=== PATIENT | female | born 1965 | race Caucasian/White ===

== ENCOUNTER 2017-03-26 10:29 | Emergency (ER) | payer OTHER, SELFPAY ==
[2017-03-26 10:33] VITALS: BP 150/66; PULSE 70; RESP 18; TEMP 36.9; O2SAT 100; BMI 27.4
--- NOTE | 2017-03-26 10:42 | XR_ITS ---
XR chest 2V HISTORY: ITS.REASON: chest discomfort ORDERING PHYSICIAN: Kaia Ivey MD PATIENT AGE: 51 years COMPARISON: None available FINDINGS: The cardiomediastinal silhouette and pulmonary vascularity are within normal limits. The lungs are clear without infiltrates, suspicious nodules, or pleural effusions. No acute bony abnormalities. IMPRESSION: No change with no acute finding
[2017-03-26 11:01] LABS: Basophils % 0.5 % (0.1-2.0); Eosinophils # 0.3 K/mm3 (0.0-0.4); Eosinophils % 3.2 % (0.1-12.0); Hemoglobin 14.7 g/dL (12.2-16.2); Lymphocytes # 2.4 K/mm3 (0.7-4.5); Lymphocytes % 27.2 K/mm3 (10-50); Mean Corpuscular HGB Conc 32.7 g/dL (31.8-35.4); Mean Corpuscular Hemoglobin 29.3 pg (27.0-31.2); Mean Corpuscular Volume 89.7 fl (81-99); Mean Platelet Volume 8.7 fl (7.4-10.4); Monocytes # 0.6 K/mm3 (0.1-1.0); Monocytes % 6.8 % (1.7-9.3); Neutrophils # 5.5 K/mm3 (1.8-7.8); Neutrophils % 62.4 % (37.0-80.0); Platelet Count 290 K/mm3 (142-424); Red Blood Count 5.02 M/mm3 (4.20-5.40); Red Cell Distribution Width 12.9 % (11.5-17.5); White Blood Count 8.7 K/mm3 (4.8-10.8)
--- NOTE | 2017-03-26 11:11 | HMH.EDCP ---
ED Disposition Clinical Impression: Atypical chest pain Disposition: Home, Self-Care Condition on Discharge: Good Instructions: DI for Atypical Chest Pain Additional Instructions: Call Dr. Schultz's office for follow up appointment March 27, 2017. Continue all current medications. Referrals: Tobias Schultz MD [Primary Care Provider] - - Critical Care Critical Care Time: No Attestation: On 03/26/17, the high probability of a clinically significant, sudden or life threatening deterioration of the following system(s) required my full and direct attention, intervention and personal management. The time I documented below is in addition to time spent performing reported procedures but includes the following listed in this critical care notation. Medical Decision Making Vital Signs: 03/26/17 10:33 03/26/17 12:46 Temperature 98.4 F Temperature Source Oral Pulse Rate [Brachial] 70 63 Respiratory Rate 18 18 Blood Pressure [Right Arm] 150/66 134/90 Blood Pressure Mean [Right Arm] 94 104 Blood Pressure Source [Right Arm] Automatic Cuff Automatic Cuff Blood Pressure Position [Right Arm] Sitting Supine 02 Sat by Pulse Oximetry 100 99 Oxygen Delivery Method Room Air Room Air - Lab Data Lab Results 03/26/17 10:45: WBC 8.7, RBC 5.02, Hgb 14.7, Hct 45.0, MCV 89.7, MCH 29.3, MCHC 32.7, RDW 12.9, Plt Count 290, MPV 8.7, Neut % (Auto) 62.4, Lymph % (Auto) 27.2, [place] % (Auto) 6.8, Eos % (Auto) 3.2, Baso % (Auto) 0.5, Neut # (Auto) 5.5, Lymph # (Auto) 2.4, [place] # (Auto) 0.6, Eos # (Auto) 0.3, Baso # (Auto) 0.0 03/26/17 10:45: D-Dimer < 100 03/26/17 10:45: Sodium 137, Potassium 3.7, Chloride 101, Carbon Dioxide 28, Anion Gap 11.7, BUN 16, Creatinine 1.16 H, Estimated Creat Clear 64, Estimated GFR 49 L, Est GFR ( Amer) 59, Glucose 119 H, Calcium 9.1, Total Bilirubin 0.6, AST 18, ALT 34, Alkaline Phosphatase 99, Total Creatine Kinase 63, CK-MB (CK-2) < 0.5, CK-MB (CK-2) Rel Index 0.8, Troponin I < 0.02, Total Protein 7.4, Albumin 4.0, Globulin 3.4 H, Albumin/Globulin Ratio 1.2 Result diagrams: 03/26/17 10:45 03/26/17 10:45 Orders (Tests/Meds): ED MEDICATIONS Generic Name Dose Route Start Last Admin Trade Name Freq PRN Reason Stop Dose Admin Sodium Chloride 10 ml 03/26/17 10:44 Saline Flush 10ml Syringe IV 04/25/17 10:43 NEEDED PRN Maintain IV Site - Radiology Data #1 Image(s): Chest Image Reviewed: Yes I reviewed the patient's radiology results, Yes I have reviewed radiologist's interpretation Preliminary Findings: Normal/NAD, No Infiltrates Seen - CT Data CT Scan: Head Time Received: 13:[address] Reviewed: Yes: I have reviewed the patient's CT results, I have viewed the radiologist's interpretation Preliminary Findings: Normal/NAD - ECG Data Tracing #1 ECG initial impression date: 03/26/17 ECG initial impression time: 10:40 - Physician Consults Physician Consulted: Dr. Schultz Time: 13:02 Reason -: Pt condition Comment/Response: ok to f/u in his clinic tomorrow; call for appt; this info relayed to patient and she is comfortable with this option. - Ghanshyam Inquiry Pt receiving controlled substance: No Chest Pain HPI - General Chief Complaint: Chest Pain Stated Complaint: SOA Time Seen by Provider: 03/26/17 11:15 Mode of Arrival: Ambulatory Source of Information: Patient Limitations: No Limitations Description of Symptoms (Recalled from ER Triage Doc. by RN): COUGH,SOA - History of Present Illness HPI narrative: In presents to the emergency department with chest heaviness, radiating to the left upper extremity since 2300 on March 25, 2017. Set her left arm feels numb . She denies any neck pain. She had a little bit of shortness of breath but no fever or cough. No dyspnea on exertion. No calf pain. The pain is not positional. He has no nausea vomiting diaphoresis. No syncope. She states that she has had a history of TIA in the past whi
[2017-03-26 11:22] LABS: Alanine Aminotransferase 34 U/L (12-78); Albumin/Globulin Ratio 1.2 (1.1-1.8); Alkaline Phosphatase 99 U/L (46-116); Anion Gap 11.7 mEq/L (5-15); Aspartate Amino Transferase 18 U/L (15-37); Bilirubin,Total 0.6 mg/dL (0.2-1.0); Blood Urea Nitrogen 16 mg/dL (7-18); Calcium 9.1 mg/dL (8.5-10.1); Carbon Dioxide 28 mmol/L (21.0-32.0); Chloride 101 mmol/L (98-107); Creatine Kinase 63 U/L (26-140); Creatinine Clearance Estimated 64 mg/ml (0-300); Creatinine,Serum 1.16 mg/dL (0.55-1.02); Estimated Glomerular Filt Rate 49 ml/min (>60); GFR (African American) 59 ML/MIN (>60); Globulin 3.4 gm/dl (1.3-3.2); Glucose 119 mg/dL (74-106); Potassium 3.7 mmoL/L (3.5-5.1); Sodium 137 mmol/L (136-145); Total Protein,Serum 7.4 gm/dL (6.4-8.2); Troponin I < 0.02 ng/ml (0.00-0.06)
[2017-03-26 11:29] LABS: CKMB Relative Index 0.8 U/L (0-4.0); Creatine Kinase MB < 0.5 mg/ml (0.0-3.6)
--- NOTE | 2017-03-26 11:29 | ED_ITS ---
ED Disposition Clinical Impression: Atypical chest pain Disposition: Home, Self-Care Condition on Discharge: Good Instructions: DI for Atypical Chest Pain Additional Instructions: Call Dr. Schultz's office for follow up appointment March 27, 2017. Continue all current medications. Referrals: Tobias Schultz MD [Primary Care Provider] - - Critical Care Critical Care Time: No Attestation: On 03/26/17, the high probability of a clinically significant, sudden or life threatening deterioration of the following system(s) required my full and direct attention, intervention and personal management. The time I documented below is in addition to time spent performing reported procedures but includes the following listed in this critical care notation. Medical Decision Making Vital Signs: 03/26/17 10:33 03/26/17 12:46 Temperature 98.4 F Temperature Source Oral Pulse Rate [Brachial] 70 63 Respiratory Rate 18 18 Blood Pressure [Right Arm] 150/66 134/90 Blood Pressure Mean [Right Arm] 94 104 Blood Pressure Source [Right Arm] Automatic Cuff Automatic Cuff Blood Pressure Position [Right Arm] Sitting Supine 02 Sat by Pulse Oximetry 100 99 Oxygen Delivery Method Room Air Room Air - Lab Data Lab Results 03/26/17 10:45: WBC 8.7, RBC 5.02, Hgb 14.7, Hct 45.0, MCV 89.7, MCH 29.3, MCHC 32.7, RDW 12.9, Plt Count 290, MPV 8.7, Neut % (Auto) 62.4, Lymph % (Auto) 27.2 , [place] % (Auto) 6.8, Eos % (Auto) 3.2, Baso % (Auto) 0.5, Neut # (Auto) 5.5, Lymph # (Auto) 2.4, [place] # (Auto) 0.6, Eos # (Auto) 0.3, Baso # (Auto) 0.0 03/26/17 10:45: D-Dimer < 100 03/26/17 10:45: Sodium 137, Potassium 3.7, Chloride 101, Carbon Dioxide 28, Anion Gap 11.7, BUN 16, Creatinine 1.16 H, Estimated Creat Clear 64, Estimated GFR 49 L, Est GFR ( Amer) 59, Glucose 119 H, Calcium 9.1, Total Bilirubin 0.6, AST 18, ALT 34, Alkaline Phosphatase 99, Total Creatine Kinase 63 , CK-MB (CK-2) < 0.5, CK-MB (CK-2) Rel Index 0.8, Troponin I < 0.02, Total Protein 7.4, Albumin 4.0, Globulin 3.4 H, Albumin/Globulin Ratio 1.2 Result diagrams: 03/26/17 10:45 03/26/17 10:45 Orders (Tests/Meds): ED MEDICATIONS Generic Name Dose Route Start Last Admin Trade Name Freq PRN Reason Stop Dose Admin Sodium Chloride 10 ml 03/26/17 10:44 Saline Flush 10ml Syringe IV 04/25/17 10:43 NEEDED PRN Maintain IV Site - Radiology Data #1 Image(s): Chest Image Reviewed: Yes I reviewed the patient's radiology results, Yes I have reviewed radiologist's interpretation Preliminary Findings: Normal/NAD, No Infiltrates Seen - CT Data CT Scan: Head Time Received: 13:[address] Reviewed: Yes: I have reviewed the patient's CT results, I have viewed the radiologist's interpretation Preliminary Findings: Normal/NAD - ECG Data Tracing #1 ECG initial impression date: 03/26/17 ECG initial impression time: 10:40 - Physician Consults Physician Consulted: Dr. Schultz Time: 13:02 Reason -: Pt condition Comment/Response: ok to f/u in his clinic tomorrow; call for appt; this info relayed to patient and she is comfortable with this option. - Ghanshyam Inquiry Pt receiving controlled substance: No Chest Pain HPI - General Chief Complaint: Chest Pain Stated Complaint: SOA Time Seen by Provider: 03/26/17 11:15 Mode of Arrival: Ambulatory Source of Information: Cesilia Luu
[2017-03-26 11:30] LABS: D-Dimer < 100 (0-400)
--- NOTE | 2017-03-26 11:38 | CT_ITS ---
CT head/brain wo con HISTORY: ITS.REASON: LEFT ARM NUMBNESS, HX OF TIA ORDERING PHYSICIAN: Kaia Ivey MD PATIENT AGE: 51 years COMPARISON: 03/27/2015 TECHNIQUE: Axial images obtained without contrast. Brain and bone windows reviewed. FINDINGS: No midline shift, mass effect, intracranial hemorrhage, hydrocephalus, or extra-axial fluid collection is evident. Nonspecific slight decreased attenuation in the periventricular and subcortical region suggesting mild ischemic gliotic change. The calvarium has an unremarkable appearance. No mastoid effusion. No sinus air-fluid levels.. IMPRESSION: No change with no acute finding. There is no evidence of intracranial hemorrhage, focal mass, or acute territorial infarction. A negative CT does not exclude an acute CVA. A follow-up head CT or MRI is recommended if neurological symptoms persist
[2017-03-26 12:46] VITALS: BP 134/90; PULSE 63; RESP 18; O2SAT 99
[2017-03-26 13:40] VITALS: BP 133/80; PULSE 82; RESP 18; TEMP 36.6; O2SAT 99
== END 2017-03-26 13:40 | disposition home or self-care (01) ==
PROVIDERS: Emergency Provider Emergency Medicine; Family Provider Family Medicine; PCP Family Medicine
DX: R07.89 Other chest pain (principal); Z88.2 Allergy status to sulfonamides
CPT/HCPCS: 70450; 71046; 80053; 82550; 82553; 84484; 85025; 85378; 93005; 93041; 99284

== ENCOUNTER → 2017-04-02 08:52 | Outpatient (CLI) | payer OTHER, SELFPAY ==
--- NOTE | 2017-04-02 08:58 | MR_ITS ---
MR head/brain wo/w con HISTORY: Left arm numbness, TIA ITS.REASON: PARESTHESIA OF LT ARM, H/O STROKE WITHIN LAST YEAR, ALEXA RIVERA ORDERING PHYSICIAN: Tobias Schultz MD PATIENT AGE: 51 years COMPARISON: 05/27/2016 TECHNIQUE: Standard multiplanar multiecho sequences are performed without and with gadolinium enhancement contrast. FINDINGS: There is no evidence of acute infarction. There are scattered periventricular and subcortical T2 white matter hyperintensities no significant change compared to the previous exam. No midline shift, mass effect, intracranial hemorrhage, or hydrocephalus. No enhancing lesions. The cerebellopontine angles, cerebellum, and brainstem are unremarkable. Small area of encephalomalacia once again noted involving the left aspect of the cerebellar hemisphere unchanged. No sinus air-fluid level or mastoid effusion. IMPRESSION: 1. No acute intracranial findings with no significant change from the previous exam. 2. Scattered periventricular and subcortical T2 white matter hyperintensities. These do not show restricted diffusion and do not enhance and are similar when compared to the previous exam probably related to ischemic gliotic change from microvascular disease. Differential diagnosis includes migraine headache and demyelinating process.
--- NOTE | 2017-04-02 10:29 | HMH.ITSHM ---
LEVOTHYROXINE 75MCG ATORVASTATIN 10MG LANSOPRAZOLE 30MG BIOTIN VITAMIN D3 MECLIZINE 25MG [place] HORMONE PATCH
== END ==
PROVIDERS: Family Provider Family Medicine; PCP Family Medicine; Visit Provider Family Medicine
DX: R20.2 Paresthesia of skin (principal); R93.0 Abnormal findings on diagnostic imaging of skull and head, not elsewhere classified; Z86.73 Personal history of transient ischemic attack (TIA), and cerebral infarction without residual deficits
CPT/HCPCS: 70553; A9576

== ENCOUNTER → 2017-07-27 12:53 | Outpatient (CLI) | payer OTHER, SELFPAY | PROVIDERS: PCP Family Medicine; Visit Provider Nurse Practitioner Family | DX: Z87.898 Personal history of other specified conditions (principal); Z86.73 Personal history of transient ischemic attack (TIA), and cerebral infarction without residual deficits; R20.0 Anesthesia of skin; R20.2 Paresthesia of skin | CPT/HCPCS: 93225; 93226 ==

== ENCOUNTER → 2017-08-03 09:47 | Outpatient (CLI) | payer OTHER, SELFPAY ==
--- NOTE | 2017-08-03 09:51 | CT_ITS ---
CT angio head CLINICAL INDICATION: Transient ischemic accident ITS.REASON: history of tia ORDERING PHYSICIAN: Elda King PATIENT AGE: 52 years TECHNIQUE: Helical acquisition obtained following the bolus administration 100 mL of Isovue 370 performed in conjunction with the neck CT. Axial sagittal and coronal reformatted images are reviewed. FINDINGS: No intracranial stenosis, aneurysm, arteriovenous malformation, or enhancing mass is evident. The right carotid artery is uniformly smaller than the left side by approximately 40%. The lumen of the carotid however has an unremarkable appearance and may represent an anatomical variant. No beading or other luminal abnormalities. IMPRESSION: Unremarkable CT angiogram of the head. No stenotic lesions apparent. The right carotid both intra and extracranial is smaller than the left side by approximately 40% of questionable clinical significance
--- NOTE | 2017-08-03 09:51 | CT_ITS ---
CT angio neck CLINICAL INDICATION: Transient ischemic attacks ITS.REASON: history of tia ORDERING PHYSICIAN: Elda King PATIENT AGE: 52 years technique: Helical acquisition obtained following the bolus administration of 100 mL's of Isovue-370. Axial sagittal and coronal reformatted images are reviewed. FINDINGS: The arch vessels have an unremarkable appearance with no significant stenosis. Left vertebral artery is dominant arising from the left subclavian artery. The right carotid is smaller in caliber than the left however, there is no significant stenotic lesion evident. The internal carotid on the right has an unremarkable appearance. There is mild prominence of the carotid bulb on the left nonspecific. No saccular or focal aneurysms are evident. No stenotic lesions apparent. The study also included the intracranial circulations showing no evidence of carotid stenosis or aneurysm. No enhancing intracranial lesions are evident. No evidence of arteriovenous malformation Nonvascular findings: Scattered small nodes are present in the neck nonspecific. IMPRESSION: Negative CT angiogram of the neck. No stenotic lesions evident.
--- NOTE | 2017-08-03 10:37 | CA_ITS ---
PROCEDURE: 2-D M-mode and color Doppler study INDICATIONS FOR THE TEST: Chest pain + COPD Heart Murmur Tobacco Smoking Palpitations Fatigue Syncope Edema Hypertension Diabetes Mellitus Rheumatic Fever SOB VILLALBA Obesity Hyperlipidemia Family History HD Additional History TIA PATIENT INFORMATION HEIGHT:64 WEIGHT:172 GENDER: Female B/P:111/87 2-D/M-MODE INTERPRETATION: 2-D MEASUREMENTS OBSERVED VALUES IN CMS Right Ventricular Dimension (RVDd) 1.8 Interventricular Septum (Thickness)(IVsd) 1.1 Left Ventricular Internal Dimensions(LVIDd) 3.7 Left Ventricular Posterior Wall (Thickness)(LVPWd) 1.0 Aortic Root 2.8 Aortic Cusp Separation 1.7 Left Atrial Dimensions (LAD) 3.6 2D 1. Left atrium is normal size, left ventricle is normal size, there is no concentric left ventricular hypertrophy, visually estimated ejection fraction 55% with no obvious regional wall motion abnormality. 2. The right atrium and right ventricle are normal size and contractility. 3. The aortic, mitral and tricuspid valve are grossly normal. 4. The pulmonic valve is poorly visualized. 5. No significant pericardial effusion noted. DOPPLER INTERROGATION: Doppler interrogation of the aortic, mitral and tricuspid valvular presence of mild mitral and tricuspid regurgitation, tricuspid and jet velocity insufficient for calculation of the right ventricular systolic pressure, diastolic parameters are within normal range. CONCLUSION: 1. Normal left ventricular size, preserved left ventricular systolic function, visually estimated ejection fraction 55% with no obvious regional wall motion abnormality, diastolic parameters are within normal range. 2. Mild mitral and tricuspid regurgitation 3. No significant pericardial effusion noted.
== END ==
PROVIDERS: Family Provider Family Medicine; PCP Family Medicine; Visit Provider Nurse Practitioner Family
DX: Z86.73 Personal history of transient ischemic attack (TIA), and cerebral infarction without residual deficits (principal); Z87.898 Personal history of other specified conditions; R20.0 Anesthesia of skin; R20.2 Paresthesia of skin; R06.83 Snoring
CPT/HCPCS: 70496; 70498; 93306; Q9967

== ENCOUNTER → 2017-08-31 07:59 | Outpatient (POV) | payer OTHER, SELFPAY | PROVIDERS: Family Provider Family Medicine; PCP Family Medicine; Visit Provider Specialist | DX: R20.0 Anesthesia of skin (principal); R20.2 Paresthesia of skin; Z86.73 Personal history of transient ischemic attack (TIA), and cerebral infarction without residual deficits | CPT/HCPCS: 95886; 95910 ==

== ENCOUNTER → 2017-09-01 07:57 | Outpatient (CLI) | payer OTHER, SELFPAY | PROVIDERS: Family Provider Family Medicine; PCP Family Medicine; Visit Provider Internal Medicine | DX: R07.89 Other chest pain (principal); R06.09 Other forms of dyspnea; R55 Syncope and collapse; Z86.73 Personal history of transient ischemic attack (TIA), and cerebral infarction without residual deficits; Z82.49 Family history of ischemic heart disease and other diseases of the circulatory system | CPT/HCPCS: 93017 ==

== ENCOUNTER → 2018-12-27 08:45 | Outpatient (CLI) | payer OTHER, SELFPAY ==
--- NOTE | 2018-12-27 08:47 | FL_ITS ---
PROCEDURE: FL BARIUM SWALLOW CLINICAL INDICATION: dysphagia COMPARISON: No exams were available for comparison TECHNIQUE: In the upright position the patient was observed to swallow barium in both the AP and lateral view. The cervical esophagus was examined under fluoroscopy with images obtained. The patient was then placed prone in the right anterior oblique position and was observed to swallow barium with Valsalva technique . FLUOROSCOPY TIME: 44 seconds FINDINGS: There was no evidence of aspiration. There was normal peristalsis. No filling defects or mucosal abnormalities. No masses or strictures. No hiatal hernia. There are some small cervical osteophytes causing some minimal indentation upon the posterior aspect of the esophagus at the C5-C6 level. IMPRESSION: No acute finding. Cervical spondylosis with osteophytes causing some mild indentation upon the posterior aspect of the cervical esophagus Dictated by: Ace Castillo MD 12/27/2018 10:05 Electronically signed by Ace Castillo MD in [facility] 12/27/2018 10:05
== END ==
PROVIDERS: PCP Family Medicine; Visit Provider Otolaryngology
DX: R13.10 Dysphagia, unspecified (principal)
CPT/HCPCS: 74220

== ENCOUNTER → 2019-01-03 16:38 | Outpatient (CLI) | payer OTHER, SELFPAY ==
[2019-01-03 18:40] LABS: Free T4 (Free Thyroxine) 1.07 ng/dl (0.76-1.46); Thyroid Stimulating Hormone 1.89 uIU/ml (0.358-3.740)
== END ==
PROVIDERS: Visit Provider Otolaryngology
DX: R13.10 Dysphagia, unspecified (principal)
CPT/HCPCS: 36415; 84439; 84443

== ENCOUNTER → 2019-01-07 07:47 | Outpatient (CLI) | payer OTHER, SELFPAY ==
--- NOTE | 2019-01-07 07:49 | US_ITS ---
PROCEDURE: US THYROID CLINICAL INDICATION: thyroid nodule Difficulty swallowing COMPARISON: THY US THYROID from 12/30/[address] angio head from 08/03/2017 FINDINGS: The thyroid gland is atrophic with the right lobe measuring 1.3 x 0.5 x 0.5 cm and the left lobe 1.4 x 0.5 x 0.5 cm with heterogeneous echogenicity. No discrete thyroid nodule is evident. Superior to the left lobe of the thyroid gland there is a hypoechoic oval area of echogenicity which measures approximately 1.2 x 0.7 cm. This is of unknown etiology and may be better evaluated with CT of the neck with contrast. IMPRESSION: 1. Atrophic thyroid gland. No discrete thyroid nodule 2. 1.2 cm hypoechoic nodule superior to the left lobe of the thyroid gland which could be due to an enlarged lymph node. Consider CT of the neck with contrast for further evaluation Dictated by: Ace Castillo MD 01/07/2019 12:00 Electronically signed by Ace Castillo MD in [facility] 01/07/2019 12:00
== END ==
PROVIDERS: PCP Family Medicine; Visit Provider Otolaryngology
DX: R13.10 Dysphagia, unspecified (principal)
CPT/HCPCS: 76536

== ENCOUNTER → 2019-01-13 13:17 | Outpatient (CLI) | payer OTHER, SELFPAY ==
[2019-01-13 14:10] LABS: Basophils # 0.1 K/mm3 (0-0.2); Basophils % 0.6 % (0.1-2.0); Eosinophils # 0.2 K/mm3 (0.0-0.4); Hematocrit 44.6 % (37.0-47.0); Hemoglobin 14.4 g/dL (12.2-16.2); Lymphocytes # 2.6 K/mm3 (0.7-4.5); Lymphocytes % 29.5 % (10-50); Mean Corpuscular HGB Conc 32.4 g/dL (31.8-35.4); Mean Corpuscular Hemoglobin 30.7 pg (27.0-31.2); Mean Corpuscular Volume 94.8 fl (81-99); Mean Platelet Volume 8.9 fl (7.4-10.4); Monocytes # 0.6 K/mm3 (0.1-1.0); Monocytes % 6.6 % (1.7-9.3); Neutrophils # 5.5 K/mm3 (1.8-7.8); Neutrophils % 61.3 % (37.0-80.0); Platelet Count 297 K/mm3 (142-424); Red Blood Count 4.71 M/mm3 (4.20-5.40); Red Cell Distribution Width 12.8 % (11.5-17.5); White Blood Count 8.9 K/mm3 (4.8-10.8)
[2019-01-13 15:38] LABS: Alanine Aminotransferase 23 U/L (12-78); Albumin Level 4.1 gm/dL (3.4-5.0); Albumin/Globulin Ratio 1.3 (1.1-1.8); Alkaline Phosphatase 86 U/L (46-116); Anion Gap 11.5 mEq/L (5-15); Aspartate Amino Transferase 12 U/L (15-37); Bilirubin,Total 0.5 mg/dL (0.2-1.0); Blood Urea Nitrogen 14 mg/dL (7-18); Calcium 9.3 mg/dL (8.5-10.1); Carbon Dioxide 31 mmol/L (21.0-32.0); Chloride 103 mmol/L (98-107); Creatinine,Serum 0.94 mg/dL (0.55-1.02); Estimated Glomerular Filt Rate 62 ml/min (>60); GFR (African American) 75 ML/MIN (>60); Globulin 3.1 gm/dl (1.3-3.2); Glucose 85 mg/dL (74-106); Potassium 4.5 mmoL/L (3.5-5.1); Sodium 141 mmol/L (136-145); Total Protein,Serum 7.2 gm/dL (6.4-8.2)
== END ==
PROVIDERS: Visit Provider Otolaryngology
DX: E03.9 Hypothyroidism, unspecified (principal); R59.0 Localized enlarged lymph nodes
CPT/HCPCS: 36415; 80053; 85025

== ENCOUNTER → 2019-01-20 12:18 | Outpatient (CLI) | payer OTHER, SELFPAY ==
--- NOTE | 2019-01-20 12:22 | CT_ITS ---
PROCEDURE: CT SOFT TISSUE NECK WO/W CON CLINICAL HISTORY: neck lymphad Enlarged lymph nodes of the neck. Palpable abnormality left anterior neck COMPARISON: AGNECK CT angio neck from 08/03/2017 TECHNIQUE: Oral Contrast: 75ml Optiray 350 IV Contrast: None Axial images obtained with sagittal and coronal reformats. All CT scans at the facility use one or more dose reduction, viz: automated exposure control, ma/kV adjustment per patient size (including targeted exams where dose is matched to indication, i.e. head), or iterative reconstruction technique. FINDINGS: Scattered small lymph nodes are present in both sides of the neck. No dominant adenopathy is evident. A BB is placed along the left anterior neck below the level of the hyoid.. There is a well-circumscribed cystic lesion just inferior to the left aspect of the hyoid bone and deep to the on all hyoid muscle and measures 12 mm transverse, 9 mm AP, and 7 mm cephalad caudad. The internal contents is approximately 24 Hounsfield units with a small peripheral enhancing rim.. This lies between the ulna however did muscle and the epiglottic cartilage. The placed BB along the anterior lateral aspect of the neck is below this area by approximately 7 mm. No adenopathy is evident. No other significant anomalies are apparent. This lesion is not readily apparent on previous CT angiogram of the neck of 08/03/2017. 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 The nasopharynx, hypopharynx, and oropharynx have an unremarkable appearance as does the epiglottis. The salivary glands are unremarkable. The thyroid gland is small to nearly nondetectable. No acute finding in the lung apices. There are mild degenerative changes in the cervical spine. The visualized paranasal sinuses have an unremarkable appearance. IMPRESSION: 12 x 9 x 7 mm well-circumscribed cystic lesion in the infrahyoid area on the left as described above. 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 This is less common in this age group. A necrotic lymph node/Delphian node is an additional consideration. An atypical bronchial cleft cyst, laryngocele, or ranula is included in the differential diagnosis but felt to be less likely due to the location. Follow-up is suggested. Atrophic or nearly absent thyroid tissue. Please correlate with surgical findings. The Dictated by: Ace Castillo MD 01/21/2019 09:33 Electronically signed by Ace Castillo MD in [facility] 01/21/2019 09:33
== END ==
PROVIDERS: PCP Family Medicine; Referring Provider Otolaryngology; Visit Provider Otolaryngology
DX: E03.9 Hypothyroidism, unspecified (principal); R59.0 Localized enlarged lymph nodes
CPT/HCPCS: 70492; Q9967

== ENCOUNTER → 2019-02-22 10:30 | Outpatient (POV) | payer OTHER, SELFPAY ==
[2019-02-22 14:33] LABS: Thyroid Stimulating Hormone 0.33 uIU/ml (0.358-3.740)
[2019-02-23 14:11] LABS: Thyroid Peroxidase Antibodies 11 IU/mL (0-34)
[2019-02-23 14:13] LABS: Thyroglobulin Level 1.3 IU/mL (0.0-0.9)
== END ==
PROVIDERS: Visit Provider Otolaryngology
DX: E04.1 Nontoxic single thyroid nodule (principal)
CPT/HCPCS: 36415; 84443; 86376; 86800

== ENCOUNTER → 2020-06-25 12:50 | Outpatient (CLI) | payer OTHER, SELFPAY | PROVIDERS: PCP Family Medicine; Visit Provider Family Medicine | DX: G47.33 Obstructive sleep apnea (adult) (pediatric) (principal); R06.83 Snoring | CPT/HCPCS: 95806 ==

== ENCOUNTER → 2020-10-10 07:50 | Outpatient (CLI) | payer OTHER, SELFPAY ==
--- NOTE | 2020-10-10 07:50 | MM_ITS ---
PROCEDURE INFORMATION: Exam: MG Screening 3D Mammography Exam date and time: 10/10/2020 7:50 AM Age: 55 years old Clinical indication: Encounter for screening mammogram for malignant neoplasm of breast TECHNIQUE: Imaging protocol: Screening tomosynthesis and 2D mammography including computer-aided detection (CAD) when performed. COMPARISON: 1. MG DMDXUAVL DIG MAMM-DX UNI A/VWS-LT W/CAD 09/26/2016 2:23 PM 2. MG DMSB DIG MAMM-SCREEN MAU W/CAD 09/10/2016 9:56 AM FINDINGS: MAMMOGRAPHY: Breast composition: The breast tissue is composed of scattered areas of fibroglandular density. Mass: None. Architectural distortion: None. Calcifications: No suspicious calcifications. Asymmetric density: None. Skin thickening: None. Axillary adenopathy: None. IMPRESSION: No mammographic evidence of malignancy. Annual screening is recommended unless otherwise clinically indicated. ASSESSMENT: BI-RADS Category 1: Negative
== END ==
PROVIDERS: PCP Family Medicine; Visit Provider Nurse Practitioner Obstetrics & Gynecology
DX: Z12.31 Encounter for screening mammogram for malignant neoplasm of breast (principal)
CPT/HCPCS: 77063; 77067

== ENCOUNTER → 2020-11-12 13:31 | Outpatient (CLI) | payer OTHER, SELFPAY ==
[2020-11-12 14:54] LABS: Blood Urea Nitrogen 14 mg/dl (7-17); Estimated Glomerular Filt Rate 65 ml/min (>60); GFR (African American) 78 ML/MIN (>60)
== END ==
PROVIDERS: Visit Provider Family Medicine
DX: R10.31 Right lower quadrant pain (principal)
CPT/HCPCS: 36415; 82565; 84520

== ENCOUNTER → 2020-11-13 11:18 | Outpatient (CLI) | payer OTHER, SELFPAY ==
--- NOTE | 2020-11-13 11:28 | CT_ITS ---
PROCEDURE: CT ABDOMEN PELVIS W CON CLINICAL INDICATION: RT LOWER QUADRANT PAIN COMPARISON: CT ABDPELW CT ABD PELVIS W/ CONTRAST from 01/06/2017 US PTV US PELVIS-TRANSVAGINAL ONLY from 01/09/2017 TECHNIQUE: IV Contrast: 75ML Isovue 370 Oral Contrast 450ml Redicat Axial images obtained with sagittal and coronal reformats. All CT scans at the facility use one or more dose reduction, viz: automated exposure control, ma/kV adjustment per patient size (including targeted exams where dose is matched to indication, i.e. head), or iterative reconstruction technique. FINDINGS: LOWER THORAX: No acute finding ABDOMEN & PELVIS: The liver, spleen, adrenal glands, pancreas, and kidneys have an unremarkable appearance. No radiopaque gallstones. No renal or ureteral calculi. No hydronephrosis. No intestinal obstruction or free air. No evidence of appendicitis. There is reported prior hysterectomy. There remains soft tissue density in the uterine bed with internal cystic areas. This could be related to residual cervix with nabothian cysts. The cystic areas are slightly larger compared to the previous study measuring up to 1.5 cm previously measuring up to 1 cm. Please correlate with patient's surgical history and physical exam. Pelvic ultrasound may provide further evaluation as well. No abnormal fluid collections in the pelvis. No acute bony findings. IMPRESSION: No acute abdominal or pelvic findings. No evidence of appendicitis. Prior partial hysterectomy. The cervix appears to remain with prominent nabothian cysts. Dictated by: Ace Castillo MD 11/14/2020 08:42 Ace Castillo MD in [facility] 11/14/2020 08:42
== END ==
PROVIDERS: PCP Family Medicine; Visit Provider Family Medicine
DX: R10.31 Right lower quadrant pain (principal)
CPT/HCPCS: 74177; Q9967

== ENCOUNTER → 2020-11-27 12:22 | Outpatient (CLI) | payer OTHER, SELFPAY ==
[2020-11-27 12:41] LABS: Basophils # 0.1 K/mm3 (0-0.2); Basophils % 0.8 % (0.1-2.0); Eosinophils # 0.4 K/mm3 (0.0-0.4); Eosinophils % 4.3 % (0.1-12.0); Hematocrit 43.9 % (37.0-47.0); Hemoglobin 14.2 g/dL (12.2-16.2); Lymphocytes # 1.9 K/mm3 (0.7-4.5); Lymphocytes % 19.8 % (10-50); Mean Corpuscular HGB Conc 32.3 g/dL (31.8-35.4); Mean Corpuscular Hemoglobin 30.9 pg (27.0-31.2); Mean Corpuscular Volume 95.6 fl (81-99); Mean Platelet Volume 9.4 fl (7.4-10.4); Monocytes # 0.5 K/mm3 (0.1-1.0); Monocytes % 5.3 % (1.7-9.3); Neutrophils # 6.8 K/mm3 (1.8-7.8); Neutrophils % 69.8 % (37.0-80.0); Platelet Count 291 K/mm3 (142-424); Red Cell Distribution Width 12.8 % (11.5-17.5); White Blood Count 9.7 K/mm3 (4.8-10.8)
[2020-11-27 13:49] LABS: Alanine Aminotransferase 18 U/L (12-78); Albumin Level 3.9 g/dl (3.5-5.0); Albumin/Globulin Ratio 1.9 (1.1-1.8); Alkaline Phosphatase 67 U/L (38-126); Amylase 38 U/L (30-110); Anion Gap 13.4 mEq/L (5-15); Aspartate Amino Transferase 17 U/L (14-36); Bilirubin,Total 0.4 mg/dl (0.2-1.3); Blood Urea Nitrogen 16 mg/dl (7-17); Calcium 9.3 mg/dl (8.4-10.2); Carbon Dioxide 31 mmol/L (22.0-30.0); Chloride 100 mmol/L (98-107); Estimated Glomerular Filt Rate 65 ml/min (>60); GFR (African American) 78 ML/MIN (>60); Globulin 2.1 g/dL (1.3-3.2); Glucose 116 mg/dl (74-100); Lipase 141 U/L (23-300); Potassium 4.4 mmoL/L (3.5-5.1); Sodium 140 mmol/L (136-145)
== END ==
PROVIDERS: Visit Provider Nurse Practitioner Family
DX: R10.11 Right upper quadrant pain (principal); R11.0 Nausea
CPT/HCPCS: 36415; 80053; 82150; 83690; 85025

== ENCOUNTER → 2020-11-30 09:15 | Outpatient (CLI) | payer OTHER, SELFPAY ==
--- NOTE | 2020-11-30 09:19 | US_ITS ---
PROCEDURE: US TRANSVAGINAL CLINICAL INDICATION: NAUSEA,CYST OF CERVIX COMPARISON: US PTV US PELVIS-TRANSVAGINAL ONLY from 01/09/[address] ABDOMEN PELVIS W CON from 11/13/2020 FINDINGS: There has been a prior partial hysterectomy. Please correlate with patient's surgical history. There are 2 cystic areas at the cervix region versus 1 septated cyst. Together these measure 2.4 x 1.4 cm previously measuring 1.5 x 1.2 cm.. No cul-de-sac fluid. No adnexal mass apparent. The ovaries are not identified and may have been removed. IMPRESSION: Status post hysterectomy with nabothian cysts which have slightly increased in size. Dictated by: Ace Castillo MD 12/03/2020 07:33 Ace Castillo MD in [facility] 12/03/2020 07:33
--- NOTE | 2020-11-30 09:20 | US_ITS ---
PROCEDURE: US ABDOMEN LIMITED CLINICAL INDICATION: RUQ ABD PAIN, NAUSEA COMPARISON: No exams were available for comparison FINDINGS: PANCREAS: Unremarkable. No obvious mass or abnormal fluid collection. No ductal dilatation LIVER: No focal liver lesions demonstrated. Homogeneous echogenicity. No intrahepatic biliary ductal dilatation evident. There is appropriate direction of blood flow within a non dilated portal vein RIGHT KIDNEY: Unremarkable. Normal size and echogenicity. No hydronephrosis GALLBLADDER: No gallstones, gallbladder wall thickening, pericholecystic fluid, or biliary dilatation. IMPRESSION: Unremarkable limited abdominal ultrasound as detailed above disc Dictated by: Ace Castillo MD 12/03/2020 07:25 Ace Castillo MD in [facility] 12/03/2020 07:25
== END ==
PROVIDERS: PCP Family Medicine; Visit Provider Nurse Practitioner Family
DX: R10.11 Right upper quadrant pain (principal); R11.0 Nausea; N88.8 Other specified noninflammatory disorders of cervix uteri
CPT/HCPCS: 76705; 76830

== ENCOUNTER 2021-04-09 00:51 | Emergency (ER) | payer OTHER, SELFPAY ==
[2021-04-09 00:51] VITALS: BP 188/100; PULSE 101; RESP 19; TEMP 36.8; O2SAT 98; BMI 23.3
--- NOTE | 2021-04-09 01:01 | ECG_ITS ---
APPROVED REPORT Exam: Resting ECG HR:86 bpm ECG Measurements Heart Rate 86 AXES WI 130 P 64 QRSd 74 QRS 33 QT 388 T 48 QTc 464 Conclusion Normal sinus rhythm Cannot rule out Anterior infarct, age undetermined Abnormal ECG Electronically signed by : Tobias Noland MD 04/09/2021 19:55:00
--- NOTE | 2021-04-09 01:08 | XR_ITS ---
PROCEDURE INFORMATION: Exam: XR Chest Exam date and time: 04/09/2021 1:08 AM Age: 55 years old Clinical indication: Pain; Chest pressure; Prior surgery; Additional info: Cp TECHNIQUE: Imaging protocol: XR of the chest. Views: 2 views. COMPARISON: CR CXR2V XR chest 2V 03/26/2017 10:47 AM FINDINGS: Lungs: Coarse interstitial lung markings likely chronic. Granulomatous change. No consolidation. Pleural spaces: Unremarkable. No pleural effusion. No pneumothorax. Heart/Mediastinum: Unremarkable. No cardiomegaly. Bones/joints: Unremarkable. IMPRESSION: No acute findings.
[2021-04-09 01:20] LABS: Basophils # 0.2 K/mm3 (0-0.2); Basophils % 1.9 % (0.1-2.0); Eosinophils # 0.2 K/mm3 (0.0-0.4); Eosinophils % 1.8 % (0.1-12.0); Hematocrit 44.1 % (37.0-47.0); Hemoglobin 14.1 g/dL (12.2-16.2); Lymphocytes # 2.2 K/mm3 (0.7-4.5); Mean Corpuscular Hemoglobin 29.9 pg (27.0-31.2); Mean Corpuscular Volume 93.3 fl (81-99); Mean Platelet Volume 9.6 fl (7.4-10.4); Monocytes # 0.6 K/mm3 (0.1-1.0); Monocytes % 5.4 % (1.7-9.3); Neutrophils # 7.3 K/mm3 (1.8-7.8); Neutrophils % 69.9 % (37.0-80.0); Platelet Count 297 K/mm3 (142-424); Red Blood Count 4.73 M/mm3 (4.20-5.40); Red Cell Distribution Width 13.6 % (11.5-17.5); White Blood Count 10.4 K/mm3 (4.8-10.8)
[2021-04-09 01:25] LABS: Alanine Aminotransferase 24 U/L (12-78); Albumin Level 4.6 g/dl (3.5-5.0); Albumin/Globulin Ratio 1.8 (1.1-1.8); Alkaline Phosphatase 73 U/L (38-126); Anion Gap 12.6 mEq/L (5-15); Aspartate Amino Transferase 23 U/L (14-36); Bilirubin,Total 0.3 mg/dl (0.2-1.3); Blood Urea Nitrogen 21 mg/dl (7-17); Calcium 9.1 mg/dl (8.4-10.2); Carbon Dioxide 28 mmol/L (22.0-30.0); Chloride 103 mmol/L (98-107); Creatinine Clearance Estimated 69 mL/min (50-200); Estimated Glomerular Filt Rate 65 ml/min (>60); GFR (African American) 78 ML/MIN (>60); Globulin 2.5 g/dL (1.3-3.2); Glucose 148 mg/dl (74-100); Potassium 3.6 mmoL/L (3.5-5.1); Sodium 140 mmol/L (136-145); Total Protein,Serum 7.1 g/dl (6.3-8.2)
[2021-04-09 01:30] LABS: C-Reactive Protein 5.1 mg/L (0-4)
--- NOTE | 2021-04-09 01:32 | HMH.EDCP ---
ED Disposition Clinical Impression: TIA (transient ischemic attack), Hypertensive emergency Chest pain Qualifiers: Chest pain type: unspecified Qualified Code(s): R07.9 - Chest pain, unspecified Disposition: Home, Self-Care Condition on Discharge: Good Instructions: DI for Transient Ischemic Attack Additional Instructions: fluids and see pcp and card melinda Prescriptions: lisinopriL [Lisinopril] 5 mg PO DAILY #30 tab Transmission Status: Pending to [facility] Referrals: Tobias Schultz MD [Primary Care Provider] - - Critical Care Critical Care Time: No Attestation: On 04/09/21, the high probability of a clinically significant, sudden or life threatening deterioration of the following system(s) required my full and direct attention, intervention and personal management. The time I documented below is in addition to time spent performing reported procedures but includes the following listed in this critical care notation. Medical Decision Making - Medical Records Medical records reviewed: Yes: I reviewed the patient's medical records. - Ghanshyam Inquiry Pt receiving controlled substance: No Vital Signs: 04/09/21 00:51 04/09/21 02:00 04/09/21 02:30 Temperature 98.2 F Temperature Source Oral Pulse Rate 69 68 Pulse Rate [Right] 101 H Respiratory Rate 19 Blood Pressure 158/80 H 140/78 Blood Pressure [Right Arm] 188/100 H Blood Pressure Mean 109 101 Blood Pressure Mean [Right Arm] 129 Blood Pressure Source [Right Arm] Manual Cuff/ Auscultation Blood Pressure Position [Right Arm] Supine 02 Sat by Pulse Oximetry 98 98 98 Oxygen Delivery Method Room Air 04/09/21 02:52 04/09/21 03:00 Temperature Temperature Source Pulse Rate 77 60 Pulse Rate [Right] Respiratory Rate Blood Pressure 153/99 H 144/78 H Blood Pressure [Right Arm] Blood Pressure Mean 117 100 Blood Pressure Mean [Right Arm] Blood Pressure Source [Right Arm] Blood Pressure Position [Right Arm] 02 Sat by Pulse Oximetry 98 97 Oxygen Delivery Method - Lab Data Lab results reviewed: Yes: I reviewed the patient's lab results. Lab Results 04/09/21 00:58: WBC 10.4, RBC 4.73, Hgb 14.1, Hct 44.1, MCV 93.3, MCH 29.9, MCHC 32.0, RDW 13.6, Plt Count 297, MPV 9.6, Neut % (Auto) 69.9, Lymph % (Auto) 21.0, Starke % (Auto) 5.4, Eos % (Auto) 1.8, Baso % (Auto) 1.9, Neut # (Auto) 7.3, Lymph # (Auto) 2.2, Starke # (Auto) 0.6, Eos # (Auto) 0.2, Baso # (Auto) 0.2, ESR 13 04/09/21 00:58: Sodium 140, Potassium 3.6, Chloride 103, Carbon Dioxide 28, Anion Gap 12.6, BUN 21 H, Creatinine 0.90, Estimated Creat Clear 69, Estimated GFR 65, Est GFR ( Amer) 78, Glucose 148 H, Calcium 9.1, Total Bilirubin 0.3, AST 23, ALT 24, Alkaline Phosphatase 73, Troponin I < 0.01, C-Reactive Protein 5.1 H, Total Protein 7.1, Albumin 4.6, Globulin 2.5, Albumin/Globulin Ratio 1.8, Procalcitonin 0.048, TSH 0.44 L 04/09/21 00:58: Free T4 1.46 04/09/21 03:55: Troponin I < 0.01 Result diagrams: 04/09/21 00:58 04/09/21 00:58 Orders (Tests/Meds): ED MEDICATIONS Generic Name Dose Route Start Last Admin Trade Name Freq PRN Reason Stop Dose Admin Sodium Chloride 1,000 mls @ 999 mls/hr 04/09/21 01:15 04/09/21 01:11 Sod Chlor 0.9% 1000ml Bag IV 04/09/21 02:15 999 mls/hr .Q1H1M MARQUISE Administration Discontinued Medications Generic Name Dose Route Start Last Admin Trade Name Freq PRN Reason Stop Dose Admin Aspirin 243 mg 04/09/21 01:09 04/09/21 01:11 Aspirin 81mg Chewable Tablet PO 04/09/21 01:10 243 mg ONCE ONE Administration Nitroglycerin 0.4 mg 04/09/21 01:10 04/09/21 01:11 Nitroglycerin 0.4mg Sl Tablet SL 04/09/21 01:11 0.4 mg ONCE ONE Administration ORDERS Category Date Time Status Troponin I Q3H Lab 04/09/21 07:15 Ordered - Radiology Data #1 Image(s): Chest Image Reviewed: Yes I have reviewed radiologist's interpretation Preliminary Findings: Normal/NAD - CT Data CT
--- NOTE | 2021-04-09 01:40 | CT_ITS ---
PROCEDURE INFORMATION: Exam: CT Head Without Contrast Exam date and time: 04/09/2021 1:40 AM Age: 55 years old Clinical indication: Numbness / parasthesia; Right TECHNIQUE: Imaging protocol: Computed tomography of the head without contrast. Radiation optimization: All CT scans at this facility use at least one of these dose optimization techniques: automated exposure control; mA and/or kV adjustment per patient size (includes targeted exams where dose is matched to clinical indication); or iterative reconstruction. COMPARISON: BRAINWW MR head/brain wo/w con 04/02/2017 9:05 AM FINDINGS: Brain: Atrophy and chronic small vessel ischemic changes. No hemorrhage. No mass effect or midline shift. A vague area of hypodensity in the left occipital lobe which could indicate developing ischemia. Cerebral ventricles: No ventriculomegaly. Paranasal sinuses: Visualized sinuses are unremarkable. No fluid levels. Mastoid air cells: Visualized mastoid air cells are well aerated. Bones/joints: Unremarkable. No acute fracture. Soft tissues: Unremarkable. IMPRESSION: A vague area of hypodensity in the left occipital lobe which could indicate developing ischemia. Recommend MRI to further evaluation.
[2021-04-09 01:45] LABS: Procalcitonin 0.048 ng/mL (0.0-2.0)
[2021-04-09 01:50] LABS: Erythrocyte Sedimentation Rate 13 mm/hr (0-30); Free T4 (Free Thyroxine) 1.46 ng/dl (0.78-2.19)
[2021-04-09 01:51] LABS: Troponin I < 0.01 ng/ml (0.00-0.034)
[2021-04-09 01:59] LABS: Thyroid Stimulating Hormone 0.44 uIU/mL (0.465-4.68)
[2021-04-09 02:00] VITALS: BP 158/80; PULSE 69; O2SAT 98
--- NOTE | 2021-04-09 02:19 | PC.NURSE ---
@ this time, this RN s/w Vrad (Dr. Godinez) ensuring we received the Head CT report. Recommend MRI brain. She states that a Head CTA would not help the views . Radiologist states that it is ok to s/w RN or MD involved in pt's care. Dr. Riggs notified @ 0221 of results and no new orders at this time.
[2021-04-09 02:30] VITALS: BP 140/78; PULSE 68; O2SAT 98
[2021-04-09 02:52] VITALS: BP 153/99; PULSE 77; O2SAT 98
[2021-04-09 03:00] VITALS: BP 144/78; PULSE 60; O2SAT 97
[2021-04-09 05:01] LABS: Troponin I < 0.01 ng/ml (0.00-0.034)
[2021-04-09 06:21] VITALS: BP 136/75; PULSE 60; RESP 16; TEMP 36.8; O2SAT 98
== END 2021-04-09 06:23 | disposition home or self-care (01) ==
PROVIDERS: Emergency Provider Emergency Medicine; PCP Family Medicine
DX: G54.8 Other nerve root and plexus disorders (principal); I16.1 Hypertensive emergency; K21.9 Gastro-esophageal reflux disease without esophagitis; E78.5 Hyperlipidemia, unspecified; Z79.899 Other long term (current) drug therapy
CPT/HCPCS: 70450; 71046; 80053; 84145; 84439; 84443; 84484; 85025; 85651; 86140; 93005; 96365; 99283

== ENCOUNTER → 2021-04-12 06:01 | Outpatient (CLI) | payer OTHER, SELFPAY ==
--- NOTE | 2021-04-12 | CA_ITS ---
APPROVED REPORT Exam: Exercise Treadmill Technologist: Jeimy Mary, Ht: 5 ft 4 in Wt: 169 lbs BSA: 1.82 m2 HR: 69 bpm BP: 167/83 mmHg Medical History Medications: Lisinopril,,,,, Levothyroxine,,,,, Aspirin,,,,, Atorvastatin,,,,, Estradiol,,,,, Lansoprazole,,,,, Meclizine,,,,, ONdansetron,,,,, Stress Test Details Test: Manual Treadmill HR Resting HR: 81 bpm Max Heart Rate (APMHR): 163.247586 bpm Max HR Achieved: 138 bpm Target HR (85% APMHR): 138.635543 bpm % of APMHR: 84.66 Recovery HR: 72 bpm BP Resting BP: 157/85 mmHg Max BP: 220/110 mmHg Recovery BP: 186.0/92.0 mmHg ECG Resting ECG: NSR, ST Segment abnormalities Inferiorly Clinical Reason for Termination: Hypertension Exercise duration: 07:00 min Highest Stage Achieved: Exercise capacity: 9.0 METs Stress ECG Conclusion 7:00 Minutes Max HR: 138 % of PM: 99 Max BP: 220/110 METs: 9.0 Test stopped due to: Increased BP Symptoms: None Arrhythmias/Ectopy: None ST-T Changes: <1.5mm ST Segment Depression Conclusion: Non-Diagnostic due to baseline EKG abnormalities exacerbated during stress. Test Summary Stage 2 03:00 12.0 2.5 132 . 220/110 . . REST . . . . . . . Standing REST 09:27 0.0 0.0 81 . 157/ 85 . . Stage 1 01:00 10.0 1.7 105 . . . . Stage 1 02:00 10.0 1.7 113 . . . . Stage 1 03:00 10.0 1.7 126 . 200/120 . . Stage 2 01:00 12.0 2.5 126 . . . . Stage 2 02:00 12.0 2.5 125 . . . . Stage 2 03:00 12.0 2.5 132 . 220/110 . . Stage 3 . . . . . . . Protocol changed to Manual Treadmill Stage 3 01:00 14.0 3.0 132 . . . Stop exercise at 07:00 RECOVERY 01:00 0.0 0.0 102 . . . . RECOVERY 02:00 0.0 0.0 85 . 201/ 99 . . RECOVERY 03:00 0.0 0.0 90 . 201/ 99 . . RECOVERY 04:00 0.0 0.0 68 . 201/ 99 . . RECOVERY 05:00 0.0 0.0 77 . 198/101 . . RECOVERY 06:00 0.0 0.0 77 . 198/101 . . RECOVERY 07:00 0.0 0.0 72 . 186/ 92 . . RECOVERY 07:15 0.0 0.0 67 . 186/ 92 . . Electronically signed by : Tramaine Aguilar MD 04/12/2021 11:25:21
--- NOTE | 2021-04-12 06:02 | CA_ITS ---
APPROVED REPORT EXAM: Comprehensive 2D, Doppler, and color-flow Echocardiogram [employer] Attendant: Shahida Avalos RT(R) Ht: 5 ft 4 in Wt: 170lbs BSA: 1.83 BP: 154/86 mmHg Indications: CP, HTN, SOB, hyperlipidemia, TIA, GERD 2D Dimensions LVOT 1.73 cm (M/F) 1.5-2.5 LVEF (Riojas's) 65.00 % F: 54 - 74 LV Volume 83.80 mL F: 46 - 106 LV Volume Index 46.04 mL/m2 F: 29 - 61 LA Volume 23.80 mL LA Volume Index 13.07 mL/m2 (M/F) 16-34 M-Mode Dimensions RVDd 2.21 cm (0.9-2.6) LA Diam 2.55 cm (1.9-4.0) LVDd 4.34 cm (3.5-5.7) Ao Diam 2.22 cm (2.0-3.7) LVDs 3.17 cm (3.5-5.7) IVSd 0.53 cm (0.6-1.1) PWd 0.71 cm (0.6-1.1) EF (Teich) 52.90% FS 27.00% EDV (Teich) 84.90 mL ESV (Teich) 40.00 mL LV Diastology E Decel Time 200.00 (160-240 msec) E/A Ratio 1.1 MED E' 12.10 (< 7 cm/sec) E'/MED E' Ratio 7.17 (>14) LAT E' 12.10 (<10 cm/sec) E/LAT E' Ratio 7.17 (>14) Mitral Valve MV E Max Lalo. 87.00 (40-130 cm/s) MV A Velocity 76.00 (40-130 cm/s) E/A Ratio 1.15 MV Decel. Time 200.00 (160-240 ms) MV PHT 59.00 ms Left Ventricle Left atrium is mildly enlarged, left ventricle is normal size, there is no concentric left ventricular hypertrophy, visually estimated ejection fraction 55% with no regional wall motion abnormality, diastolic parameters are within normal range. Right Ventricle Right atrium and right ventricle are normal size and contractility. Aortic Valve Aortic valve is minimally thickened and fibrosed, there is no aortic stenosis or aortic insufficiency. Mitral Valve Mitral valve is grossly normal, there is trace mitral regurgitation. Tricuspid Valve Tricuspid valve grossly normal, there is trace tricuspid regurgitation, tricuspid regurgitation jet velocity is inadequate for calculation of the right ventricular systolic pressure. Pulmonic Valve Pulmonic valve is poorly visualized. Great Vessels Aortic root is normal size. Inferior vena cava is normal size with normal inspiratory collapse. Pericardium No significant pericardial effusion noted. Conclusion 1. Normal left ventricular size, preserved left ventricular systolic function, visually estimated ejection fraction 55% with no regional wall motion abnormality, diastolic parameters are within normal range. 2. Trace mitral and tricuspid regurgitation. 3. No significant pericardial effusion noted. 4. Inferior vena cava is normal size with normal inspiratory collapse. Electronically signed by : Tramaine Aguilar MD 04/12/2021 14:15:57
--- NOTE | 2021-04-12 06:02 | CA_ITS ---
FINAL REPORT TECHNIQUE: Grayscale, color Doppler and duplex Doppler ultrasound of the kidneys, aorta and renal arteries was performed. Multiple velocities were measured. CLINICAL HISTORY: HTN,HLD FINDINGS: Aorta velocity: 95 cm/sec Right kidney: 10.7 cm. No evidence of hydronephrosis or mass. Right intrarenal RI: 0.59 Right renal artery velocity: 182 cm/sec. Right RAR (Renal artery-Aortic Ratio): 1.9 Left Kidney: 10.6 cm. No evidence of hydronephrosis or mass. Left intrarenal RI: 0.65 Left renal artery velocity: 178 cm/sec. Left RAR (Renal Artery-Aortic Ratio): 1.9 IMPRESSION: No evidence of significant renal artery stenosis. CT angiogram or postcontrast MR angiogram would be more sensitive for evaluation of possible renal artery stenosis. Reviewed, Interpreted and Dictated by Chon Kwan III, MD Transcribed by Arlene Paul Authenticated by Chon Kwan III, MD on 04/12/2021 11:00:04 AM [facility]
--- NOTE | 2021-04-12 06:02 | NM_ITS ---
APPROVED REPORT Exam: Nuclear Stress Test Indication: chest pain..short of breath..fatigue Patient Location: Outpatient Stress Tech: Jeimy Mary ND Tech:JUAN C Vaughn RT(R)(N) Ht: 5 ft 4 in Wt: 170 lbs Bra Size: 36b HR: 69 bpm BP: 167/83 mmHg BSA: 1.83 m2 BMI: 29.1 History: chest pain..short of breath..fatigue Procedure: Patient exercised on Fernandez protocol 7 minutes and sec, resting heart rate 69 bpm, resting blood pressure 167/83 mmHg, with exercise maximum heart rate achived was 138 bpm which is 99 % of the maximum predicted heart rate and blood pressure was 220/110 mmHg. Patient denied any complaint of chest pain. Patient has Adequate exercise capacity, achieved 9.0 METs of workload on treadmill, the blood pressure response to exercise was Hypertensive. Electrocardiogram Resting electrocardiogram showed sinus rhythm nonspecific ST-T changes, with exercise there is no additional millimeter ST segment depression noted from the baseline EKG, the EKG portion of the exercise Myoview is nondiagnostic due to baseline abnormal EKG. Cardiac Stress and Resting SPECT Images: Cardiac Stress and Resting SPECT images were obtained using technetium 99m Myoview 29.9 mCi stress and 10.52 mCi at rest. Gated SPECT for analysis of segmental wall motion and calculation of the ejection fraction also done. Cardiac stress and resting SPECT images show uniform myocardial activity without segmental perfusion abnormality, computer derived ejection fraction is over 65% with no regional wall motion abnormality, right ventricle is normal size and contractility. Conclusion: 1. The EKG portion of the exercise Myoview is nondiagnostic due to baseline abnormal EKG, patient has adequate exercise capacity achieved 9 METS of workload on treadmill the blood pressure response to exercise was hypertensive. 2. No scintigraphic evidence of reversible ischemia seen, compared right ejection fraction over 65% with no regional wall motion abnormality, right ventricle is normal size and contractility. 3. Normal exercise Myoview study. Electronically signed by : Tramaine Aguilar MD 04/12/2021 11:34:01
== END ==
PROVIDERS: PCP Family Medicine; Visit Provider Nurse Practitioner Family
DX: R06.00 Dyspnea, unspecified (principal); R07.89 Other chest pain; E78.2 Mixed hyperlipidemia; G45.9 Transient cerebral ischemic attack, unspecified; Z87.898 Personal history of other specified conditions
CPT/HCPCS: 78452; 93017; 93306; 93976; A9502

== ENCOUNTER → 2021-04-18 08:39 | Outpatient (CLI) | payer OTHER, SELFPAY ==
[2021-04-18 09:15] LABS: Blood Urea Nitrogen 22 mg/dl (7-17); Estimated Glomerular Filt Rate 65 ml/min (>60); GFR (African American) 78 ML/MIN (>60)
--- NOTE | 2021-04-18 10:28 | MR_ITS ---
FINAL REPORT CLINICAL HISTORY: HX OF TIA. NUMBNESS. PARASTHESIA. PT HAD CT SCAN @ [facility]. FINDINGS: Multiplanar MR imaging of the brain was performed without and with contrast. There is no evidence of intracranial hemorrhage or mass. There are mild to moderate scattered foci of increased signal in the deep white matter. There is mild linear signal abnormality in the left cerebellar hemisphere which may be related to minimal sequela of prior ischemia. Finding is well-seen on image 5 of series 6. No abnormal extra-axial fluid collection is seen. The ventricular size is within normal limits. There is no evidence of shift of the midline structures. No area of abnormal restricted diffusion is identified. No abnormal contrast enhancement is seen. The paranasal sinuses are well aerated. The seventh and eighth nerve root complexes are normal. IMPRESSION: Mild to moderate changes of chronic microvascular ischemia. Minimal sequela of prior ischemia in the left cerebellar hemisphere. Reviewed, Interpreted and Dictated by Ravinder Poon MD Transcribed by Leonora Salinas Authenticated by Ravinder Poon MD on 04/18/2021 01:27:[address] [facility]
== END ==
PROVIDERS: PCP Family Medicine; Visit Provider Family Medicine
DX: G45.9 Transient cerebral ischemic attack, unspecified (principal); I10 Essential (primary) hypertension; R93.0 Abnormal findings on diagnostic imaging of skull and head, not elsewhere classified
CPT/HCPCS: 36415; 70553; 82565; 84520; A9576

== ENCOUNTER → 2021-08-09 10:43 | Outpatient (CLI) | payer OTHER, SELFPAY ==
[2021-08-09 11:01] LABS: Basophils # 0.1 K/mm3 (0-0.2); Basophils % 0.6 % (0.1-2.0); Eosinophils # 0.2 K/mm3 (0.0-0.4); Eosinophils % 2.5 % (0.1-12.0); Hematocrit 41.8 % (37.0-47.0); Lymphocytes # 2.3 K/mm3 (0.7-4.5); Lymphocytes % 29.8 % (10-50); Mean Corpuscular HGB Conc 33.5 g/dL (31.8-35.4); Mean Corpuscular Hemoglobin 30.1 pg (27.0-31.2); Mean Corpuscular Volume 89.9 fl (81-99); Mean Platelet Volume 8.8 fl (7.4-10.4); Monocytes # 0.7 K/mm3 (0.1-1.0); Monocytes % 9.2 % (1.7-9.3); Neutrophils # 4.4 K/mm3 (1.8-7.8); Neutrophils % 57.8 % (37.0-80.0); Platelet Count 297 K/mm3 (142-424); Red Blood Count 4.65 M/mm3 (4.20-5.40); Red Cell Distribution Width 12.3 % (11.5-17.5); White Blood Count 7.7 K/mm3 (4.8-10.8)
[2021-08-09 11:35] LABS: Chloride 105 mmol/L (98-107); Sodium 142 mmol/L (136-145)
[2021-08-09 11:38] LABS: Alanine Aminotransferase 23 U/L (12-78); Alkaline Phosphatase 74 U/L (38-126); Amylase 40 U/L (30-110); Aspartate Amino Transferase 21 U/L (14-36); Bilirubin,Total 0.6 mg/dl (0.2-1.3); Blood Urea Nitrogen 25 mg/dl (7-17); Calcium 9.3 mg/dl (8.4-10.2); Carbon Dioxide 29 mmol/L (22.0-30.0); Estimated Glomerular Filt Rate 51 ml/min (>60); GFR (African American) 62 ML/MIN (>60); Glucose 108 mg/dl (74-100); Lipase 209 U/L (23-300)
[2021-08-09 11:39] LABS: Albumin Level 4.2 g/dl (3.5-5.0); Albumin/Globulin Ratio 1.8 (1.1-1.8); Globulin 2.3 g/dL (1.3-3.2); Total Protein,Serum 6.5 g/dl (6.3-8.2)
== END ==
PROVIDERS: Visit Provider Nurse Practitioner Family
DX: R10.10 Upper abdominal pain, unspecified (principal); R11.0 Nausea; R19.7 Diarrhea, unspecified
CPT/HCPCS: 36415; 80053; 82150; 83690; 85025

== ENCOUNTER → 2021-08-16 08:46 | Outpatient (CLI) | payer OTHER, SELFPAY ==
--- NOTE | 2021-08-16 08:52 | US_ITS ---
FINAL REPORT TECHNIQUE: Sonographic images of the right upper quadrant were obtained. CLINICAL HISTORY: UPPER ABD PAIN,NAUSEA FINDINGS: The liver is homogeneous. There is no focal hepatic lesion or intrahepatic biliary dilatation. The gallbladder is well filled. There are no gallstones. There is no pericholecystic fluid collection or gallbladder wall thickening. The common duct measures 3 mm which is within normal limits. The pancreatic tail is partially obscured by bowel gas. Otherwise, it has a normal appearance. The right kidney measures 9.3 cm in qail-ot-pweh length. There is no hydronephrosis, mass, or stone. There is no right upper quadrant ascites. IMPRESSION: Unremarkable right upper quadrant ultrasound. No gallstones, pericholecystic fluid collection, or gallbladder wall thickening. Reviewed, Interpreted and Dictated by Cinthya Sanchez MD Transcribed by Arlene Paul Authenticated by Cinthya Sanchez MD on 08/16/2021 11:33:00 AM [facility]
== END ==
PROVIDERS: PCP Nurse Practitioner Family; Visit Provider Nurse Practitioner Family
DX: R10.10 Upper abdominal pain, unspecified (principal); R11.0 Nausea
CPT/HCPCS: 76705

== ENCOUNTER → 2021-09-12 10:09 | Outpatient (CLI) | payer OTHER, SELFPAY ==
--- NOTE | 2021-09-12 10:23 | NM_ITS ---
FINAL REPORT CLINICAL HISTORY: DIARRHEA. UPPER ABD. PAIN. NAUSEA FINDINGS: Sequential anterior projection images of the abdomen were obtained after the intravenous injection of 7.99 mCi technetium 99m Choletec. There is normal uptake of radiotracer by the liver. The bile ducts are visualized by 15 minutes. Gallbladder activity is seen by 20 minutes. Bowel activity is noted by 35 minutes. After 1 hour, 1.5 ?g of CCK was injected intravenously for calculation of gallbladder ejection fraction. The gallbladder ejection fraction is 37%, which is within normal limits. IMPRESSION: No evidence of cystic duct or bile duct obstruction. Normal gallbladder ejection fraction of 37%. Reviewed, Interpreted and Dictated by Chon Kwan III, MD Transcribed by Alissa Olivier Authenticated and [facility]
== END ==
PROVIDERS: PCP Nurse Practitioner Family; Visit Provider Nurse Practitioner Family
DX: R19.7 Diarrhea, unspecified (principal); R10.10 Upper abdominal pain, unspecified; R11.0 Nausea
CPT/HCPCS: 78227; A9537; J2805

== ENCOUNTER → 2022-01-08 10:41 | Outpatient (CLI) | payer OTHER, SELFPAY ==
[2022-01-08 12:04] LABS: Basophils # 0.1 K/mm3 (0-0.2); Basophils % 1.3 % (0.1-2.0); Eosinophils # 0.2 K/mm3 (0.0-0.4); Eosinophils % 2.8 % (0.1-12.0); Hematocrit 45.4 % (37.0-47.0); Hemoglobin 14.4 g/dL (12.2-16.2); Lymphocytes % 23.5 % (10-50); Mean Corpuscular HGB Conc 31.8 g/dL (31.8-35.4); Mean Corpuscular Volume 94.4 fl (81-99); Mean Platelet Volume 9.3 fl (7.4-10.4); Monocytes # 0.4 K/mm3 (0.1-1.0); Monocytes % 4.8 % (1.7-9.3); Neutrophils # 5.8 K/mm3 (1.8-7.8); Neutrophils % 67.7 % (37.0-80.0); Platelet Count 318 K/mm3 (142-424); Red Blood Count 4.81 M/mm3 (4.20-5.40); Red Cell Distribution Width 13.1 % (11.5-17.5); White Blood Count 8.5 K/mm3 (4.8-10.8)
[2022-01-08 12:30] LABS: Chloride 102 mmol/L (98-107); Potassium 4.9 mmoL/L (3.5-5.1); Sodium 141 mmol/L (136-145)
[2022-01-08 12:33] LABS: Alanine Aminotransferase 20 U/L (12-78); Albumin Level 4.2 g/dl (3.5-5.0); Albumin/Globulin Ratio 1.8 (1.1-1.8); Alkaline Phosphatase 88 U/L (38-126); Anion Gap 13.9 mEq/L (5-15); Aspartate Amino Transferase 23 U/L (14-36); Bilirubin,Total 0.5 mg/dl (0.2-1.3); Blood Urea Nitrogen 12 mg/dl (7-17); Calcium 8.8 mg/dl (8.4-10.2); Carbon Dioxide 30 mmol/L (22.0-30.0); Cholesterol 166 mg/dl (140-200); Estimated Glomerular Filt Rate 64 ml/min (>60); GFR (African American) 78 ML/MIN (>60); Globulin 2.3 g/dL (1.3-3.2); Glucose 99 mg/dl (74-100); Total Protein,Serum 6.5 g/dl (6.3-8.2); Triglycerides 120 mg/dl (30-150); VLDL Cholesterol 24 mg/dL (0-40)
[2022-01-08 12:34] LABS: Chol/HDL Ratio 2.6 (1-3.5); HDL Cholesterol 64 mg/dl (40-60)
[2022-01-08 12:45] LABS: Direct LDL Cholesterol 71.31 mg/dL (100-129)
[2022-01-08 13:06] LABS: Thyroid Stimulating Hormone 0.17 uIU/mL (0.465-4.68)
[2022-01-08 14:30] LABS: Occult Blood,Stool Negative (Negative)
[2022-01-09 17:58] LABS: C difficile Toxins AB, EIA Negative (Negative)
[2022-01-10 09:14] LABS: H. pylori Breath Test Negative (Negative)
[2022-01-13 12:35] LABS: Fats, Neutral Increased (.); Fats, Total Normal (.)
== END ==
PROVIDERS: PCP Family Medicine; Visit Provider Family Medicine
DX: E03.9 Hypothyroidism, unspecified (principal); I10 Essential (primary) hypertension; R19.7 Diarrhea, unspecified; E78.2 Mixed hyperlipidemia
CPT/HCPCS: 36415; 80053; 80061; 82272; 82705; 83013; 84443; 85025; 86677; 87045; 87324; G0328

== ENCOUNTER → 2022-01-22 15:22 | Outpatient (CLI) | payer OTHER, SELFPAY ==
--- NOTE | 2022-01-22 15:22 | US_ITS ---
FINAL REPORT CLINICAL HISTORY: posterior knee pain-left FINDINGS: Limited sonographic images were obtained of the posterior aspect of the left knee at the palpable area of pain. No mass or abnormal fluid collection was identified. IMPRESSION: No mass or abnormal fluid collection was identified at the area of interest. Reviewed, Interpreted and Dictated by Chon Kwan III, MD Transcribed by Arlene Paul Authenticated and [facility]
--- NOTE | 2022-01-22 15:22 | MM_ITS ---
PROCEDURE INFORMATION: Exam: MG Bilateral Screening 3D Mammography Exam date and time: 01/22/2022 3:28 PM Age: 56 years old Clinical indication: Screening examination TECHNIQUE: Imaging protocol: Bilateral Screening tomosynthesis and 2D mammography including computer-aided detection (CAD) when performed. COMPARISON: 1. MG MM DIG SCREENING MAMM BI W/CAD 10/10/2020 8:03 AM 2. MG DMDXUAVL DIG MAMM-DX UNI A/VWS-LT W/CAD 09/26/2016 2:23 PM FINDINGS: MAMMOGRAPHY: Breast composition: There are scattered areas of fibroglandular density. Mass: None. Architectural distortion: None. Calcifications: No suspicious calcifications. Asymmetric density: None. Skin thickening: None. Axillary adenopathy: None. IMPRESSION: No mammographic evidence of malignancy. Annual screening is recommended unless otherwise clinically indicated. ASSESSMENT: BI-RADS Category 1: Negative
== END ==
PROVIDERS: PCP Family Medicine; Visit Provider Family Medicine
DX: M25.562 Pain in left knee (principal); Z12.31 Encounter for screening mammogram for malignant neoplasm of breast
CPT/HCPCS: 76882; 77063; 77067

== ENCOUNTER 2022-02-06 09:16 | Day surgery (SDC) | payer OTHER, SELFPAY ==
[2022-02-04 14:02] VITALS: BMI 28.6
[2022-02-06] VITALS (7 sets, daily range): BP systolic 80–133; BP diastolic 51–91; PULSE 86–102; RESP 16–18; TEMP 36.2–36.6; O2SAT 93–99
--- NOTE | 2022-02-06 09:57 | P.PN_ITS ---
[facility] Medical History Arthritis Atypical chest pain Chest pain Dyspnea History of syncope Hypertensive emergency Malignant essential hypertension Nausea and vomiting Palpitations Thyroid condition Surgical History H/O total hysterectomy H/O tubal ligation Family History Other Cancer Coronary artery disease Hypertension Social History Smoking Status: Never smoker second hand exposure: No alcohol intake: current counseling provided: none substance use type: denies use current occupational status: employed Travel in the last 8 weeks: None household members: spouse housing: house lives independently: Yes marital status: number of children: 2 number of grandchildren: 3 care home: No [facility] Anesthesia Checklist Patient Identification Patient Identification: Arm Band and Verbal (Name & ) Structural Data Admitted From: Home Planned Operative Procedure/s: Colonoscopy Consent for Planned Operative Procedure(s) Verified: Yes NPO Status Verified Time NPO: 00:00 Airway Assessment C-Spine Mobility Assessed: Yes TMJ Mobility Assessed: Yes Dentition: Good Dentition Neurological Assessment Level of Consciousness: Awake Hx Seizures: No Numbness or tingling in extremities: No Anesthesia Plan Anesthesia Risk discussed: Yes Anesthesia Plan: Verified ASA Class: III Anesthesia Type: MAC
--- NOTE | 2022-02-06 10:33 | HMH.SCOPE ---
Procedure: Date: 02/06/22 Patient Date of :: 1965 Procedure Performed:: Total colonoscopy to terminal ileum with biopsies Indications:: Patient is a 56-year-old female. I had previously performed colonoscopies on her in the past. She was scheduled for screening colonoscopy. She does state that she has had some diarrhea which is felt to be malabsorption as her primary care provider has run multiple tests. This is somewhat improved. Performing Provider:: Chon Maxwell MD Referring Provider:: Luzmaria Trujillo Sedation:: MAC sedation Procedure:: Patient history was obtained and appropriate physical examination was performed. Patient's medications and allergies were reviewed. Informed consent was obtained after explaining the benefits, alternatives, and risks of the procedure including, but not limited to, bleeding, perforation, missed lesions, and adverse reaction to anesthesia medications. Patient was transported to endoscopy procedure room. Patient was connected to monitoring devices. Throughout the procedure the patient's blood pressure, pulse, and oxygen saturations were monitored continuously. Patient identification and planned procedure were verified by the staff. Patient was positioned in lateral decubitus position. Digital anorectal exam was performed. Variable stiffness Olympus colonoscope was inserted and advanced under direct visualization to the cecum. Adequacy of the colonic preparation was noted. The colonoscope was advanced a short distance into the terminal ileum. The colonoscope was then slowly withdrawn while carefully examining the color, texture, anatomy, and integrity of the mucosoa circumferentially. Within the rectum retroflexion was performed. Colonoscope was then withdrawn. IMPRESSION: Overall colonoscopic preparation was good. Terminal ileum and colon appeared normal. Biopsies were obtained within the terminal ileum and right colon and left colon to rule out microscopic etiology for her diarrhea. There was a subtle focal irregularity within the cecum which is likely inconsequential which was removed with biopsy. Findings:: Overall relatively unremarkable colonoscopy to terminal ileum. Biopsies obtained. Focal irregularity in the cecum, very subtle, biopsied, likely inconsequential Recommendations:: Diarrhea likely medical/functional. However, if biopsies show otherwise treat appropriately. Repeat colonoscopy 5 to 10 years pending pathology Complications:: None immediately Estimated blood obtained (mL): 1
== END 2022-02-06 11:38 | disposition home or self-care (01) ==
PROVIDERS: PCP Family Medicine; Visit Provider Surgery
PROC: 0DJD8ZZ Inspection of Lower Intestinal Tract, Via Natural or Artificial Opening Endoscopic (ICD-10-PCS; CPT 45380; principal; 2022-02-06 10:30)
DX: Z12.11 Encounter for screening for malignant neoplasm of colon (principal); Z79.899 Other long term (current) drug therapy
CPT/HCPCS: 45380

== ENCOUNTER 2022-02-22 15:48 | Emergency (ER) | payer OTHER, SELFPAY ==
--- NOTE | 2022-02-22 16:50 | EXP.UTC ---
Discharge Plan Disposition Patient Disposition: Home, Self-Care Condition: Good Prescriptions Prescriptions: New promethazine-DM 6.25-15 mg/5 mL Syrup 5 ml PO Q6H PRN (Reason: Cough) Qty: 240 0RF methylprednisolone 4 mg Tablets,Dose Pack 4 mg PO DIRECTED Qty: 21 0RF Paxlovid (EUA) 300 mg (150 mg x 2)-100 mg tablet See Rx Instructions .ROUTE .COMPLEX Qty: 30 0RF Rx Instructions: take TWO 150 mg tablets of nirmatrelvir with ONE 100 mg tablet of ritonavir twice daily for 5 days No Action lansoprazole 30 mg capsule,delayed release(DR/EC) 30 mg PO DAILY 30 Days Qty: 30 1RF meloxicam 15 mg tablet 15 mg PO DAILY Qty: 30 1RF aspirin 81 mg tablet,chewable 81 mg PO ONCE meclizine 25 mg tablet 25 mg PO DAILY PRN (Reason: Vertigo) atorvastatin 10 mg tablet 10 mg PO DAILY 30 Days Qty: 30 6RF estradiol 0.05 mg/24 hr patch weekly 1 patch TRANSDERMA .twice weekly Qty: 8 3RF levothyroxine 88 mcg tablet 88 mcg PO DAILY Qty: 30 1RF ondansetron 4 MG tablet,disintegrating 4 mg PO Q8HP PRN (Reason: Nausea) Qty: 30 0RF lisinopril 10 mg tablet 10 mg PO DAILY cholestyramine (with sugar) 4 gram powder in packet 4 g PO BID Rx Instructions: administer w/meal; avoid other meds within 1hr before or 4-6hr after dose Referrals Follow up/Referrals: Luzmaria Hobbs DO [Primary Care Provider] - See instructions Activity Restrictions/Add. Instructions Additional Instructions/Restrictions: Drink plenty of fluids. Take tylenol or ibuprofen for pain or fever. Take the medications as directed. Follow up with your regular doctor. GO TO THE ER FOR ANY WORSENING SYMPTOMS Clinical Impressions Clinical Impression: COVID-19 Stand Alone Forms Stand Alone Forms: Work/School Release Instructions Patient Instructions: Coronavirus Disease 2019, Preventing the Spread of Coronavirus Discharge Instructions Discharge ED Provider: Seferino Brar [facility] General Stated complaint: congestion Time Seen by Provider: 02/22/22 16:47 History of Present Illness Provider Complaint: She states that she has felt bad since last night. She is having body aches, chills, fever, cough, and malaise. 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 Related Data Home Medications Medication Instructions Recorded Confirmed aspirin 81 mg chewable tablet 81 mg PO ONCE cardiac 07/20/17 02/06/22 meclizine 25 mg tablet 25 mg PO DAILY PRN Vertigo 09/02/17 02/06/22 cholestyramine (with sugar) 4 gram 4 g PO BID malabsorption 02/04/22 02/06/22 powder for susp in a packet lisinopril 10 mg tablet 10 mg PO DAILY Hypertension 02/04/22 02/06/22 Previous Rx's Medication Instructions Recorded ondansetron 4 mg disintegrating 4 mg PO Q8HP PRN Nausea ##30 06/29/18 tablet estradiol 0.05 mg/24 hr weekly 1 patch transdermal .twice weekly 11/21/21 transdermal patch hormone #8 ea lansoprazole 30 mg capsule,delayed 30 mg PO DAILY . 30 days #30 caps 01/08/22 release meloxicam 15 mg tablet 15 mg PO DAILY Pain #30 tabs 01/08/22 levothyroxine 88 mcg tablet 88 mcg PO DAILY thyroid #30 tabs 01/13/22 atorvastatin 10 mg tablet 10 mg PO DAILY hld 30 days #30 tabs 02/03/22 methylprednisolone 4 mg tablets in 4 mg PO DIRECTED #21 tabs 02/22/22 a dose pack nirmatrelvir 300 mg (150 mg See Rx Instructions PO .COMPLEX 02/22/22 x2)-ritonavir 100 mg tablet,dose #30 tabs pack(EUA) (Paxlovid) promethazine-DM 6.25 mg-15 mg/5 mL 5 ml PO Q6H PRN Cough #240 mL 02/22/22 oral syrup Allergies Allergy/AdvReac Type Severity Reaction Status Date / Time Sulfa (Sulfonamide Allergy Intermediate I-HIVES Verified 02/22/22 16:58 Antibiotics) [SULFA (SULFONAMIDE ANTIBIOTICS)] [facility] Disclaimer: The information contained in this section may have been updated after the patient was seen, as this information can be updated by other users. [facility] [place]
[2022-02-22 16:55] VITALS: BP 129/74; PULSE 103; RESP 18; TEMP 37.1; O2SAT 97; BMI 29.2
[2022-02-22 17:00] LABS: UTC Strep Screen (Rapid) Negative (Negative)
[2022-02-22 17:01] LABS: UTC Influenza A Antigen Negative (Negative); UTC Influenza B Antigen Negative (Negative)
[2022-02-22 17:03] LABS: Influenza A, PCR Not Detected (NotDetected); Influenza B, PCR Not Detected (NotDetected)
[2022-02-22 17:49] LABS: Coronavirus 19, PCR Detected (NotDetected)
[2022-02-22 18:09] VITALS: BP 129/74; PULSE 103; RESP 17; TEMP 37.1
== END 2022-02-22 18:13 | disposition home or self-care (01) ==
PROVIDERS: Emergency Provider Nurse Practitioner Family; PCP Family Medicine
DX: U07.1 COVID-19 (principal); R50.9 Fever, unspecified; R53.81 Other malaise; I10 Essential (primary) hypertension; E07.9 Disorder of thyroid, unspecified; M19.90 Unspecified osteoarthritis, unspecified site; Z79.3 Long term (current) use of hormonal contraceptives; Z79.82 Long term (current) use of aspirin; Z79.899 Other long term (current) drug therapy; Z88.2 Allergy status to sulfonamides; Z82.49 Family history of ischemic heart disease and other diseases of the circulatory system; Z80.9 Family history of malignant neoplasm, unspecified
CPT/HCPCS: 87804; 87880; 99213; C9803; G0463; U0003; U0005

== ENCOUNTER → 2022-03-06 11:26 | Outpatient (CLI) | payer OTHER, SELFPAY ==
[2022-03-06 13:06] LABS: Thyroid Stimulating Hormone 2.46 uIU/mL (0.465-4.68)
== END ==
PROVIDERS: PCP Family Medicine; Visit Provider Family Medicine
DX: E03.9 Hypothyroidism, unspecified (principal)
CPT/HCPCS: 36415; 84443

== ENCOUNTER → 2022-03-11 13:47 | Outpatient (CLI) | payer OTHER, SELFPAY ==
--- NOTE | 2022-03-11 13:51 | XR_ITS ---
FINAL REPORT CLINICAL HISTORY: right foot pain in heel and arch FINDINGS: 3 views of the right foot were obtained. There is no acute fracture or dislocation. There is a small plantar calcaneal spur. The joint spaces are intact. The soft tissues are unremarkable. IMPRESSION: No acute process. Reviewed, Interpreted and Dictated by Chon Kwan III, MD Transcribed by Mc Quinonez Authenticated and [facility]
== END ==
PROVIDERS: PCP Family Medicine; Visit Provider Family Medicine
DX: M79.671 Pain in right foot (principal)
CPT/HCPCS: 73630

== ENCOUNTER → 2022-07-31 11:08 | Outpatient (CLI) | payer OTHER, SELFPAY ==
[2022-07-31 12:50] LABS: Chloride 98 mmol/L (98-107); Potassium 4.1 mmoL/L (3.5-5.1); Sodium 140 mmol/L (136-145)
[2022-07-31 12:52] LABS: Alanine Aminotransferase 27 U/L (12-78); Blood Urea Nitrogen 15 mg/dl (7-17); Estimated Glomerular Filt Rate 64 ml/min (>60); GFR (African American) 78 ML/MIN (>60)
[2022-07-31 12:53] LABS: Albumin Level 3.9 g/dl (3.5-5.0); Albumin/Globulin Ratio 1.9 (1.1-1.8); Alkaline Phosphatase 72 U/L (38-126); Anion Gap 15.1 mEq/L (5-15); Aspartate Amino Transferase 26 U/L (14-36); Bilirubin,Total 0.4 mg/dl (0.2-1.3); Calcium 8.6 mg/dl (8.4-10.2); Carbon Dioxide 31 mmol/L (22.0-30.0); Chol/HDL Ratio 2.1 (1-3.5); Cholesterol 117 mg/dl (140-200); Globulin 2.1 g/dL (1.3-3.2); Glucose 85 mg/dl (74-100); HDL Cholesterol 57 mg/dl (40-60); Triglycerides 184 mg/dl (30-150); VLDL Cholesterol 37 mg/dL (0-40)
[2022-07-31 13:04] LABS: Direct LDL Cholesterol 49.51 mg/dL (100-129)
[2022-07-31 13:23] LABS: Thyroid Stimulating Hormone 6.62 uIU/mL (0.465-4.68)
== END ==
PROVIDERS: PCP Family Medicine; Visit Provider Family Medicine
DX: E03.9 Hypothyroidism, unspecified (principal); E78.5 Hyperlipidemia, unspecified; E78.2 Mixed hyperlipidemia; I10 Essential (primary) hypertension
CPT/HCPCS: 36415; 80053; 80061; 84443

== ENCOUNTER → 2022-09-22 07:24 | Outpatient (CLI) | payer OTHER, SELFPAY ==
[2022-09-22 08:39] LABS: Alanine Aminotransferase 33 U/L (12-78); Albumin Level 4.4 g/dl (3.5-5.0); Albumin/Globulin Ratio 1.8 (1.1-1.8); Alkaline Phosphatase 77 U/L (38-126); Anion Gap 12.3 mEq/L (5-15); Aspartate Amino Transferase 29 U/L (14-36); Bilirubin,Total 0.6 mg/dl (0.2-1.3); Blood Urea Nitrogen 17 mg/dl (7-17); Calcium 9.1 mg/dl (8.4-10.2); Carbon Dioxide 31 mmol/L (22.0-30.0); Chloride 100 mmol/L (98-107); Chol/HDL Ratio 2.9 (1-3.5); Cholesterol 197 mg/dl (140-200); Estimated Glomerular Filt Rate 64 ml/min (>60); GFR (African American) 78 ML/MIN (>60); Globulin 2.4 g/dL (1.3-3.2); Glucose 100 mg/dl (74-100); HDL Cholesterol 69 mg/dl (40-60); Potassium 4.3 mmoL/L (3.5-5.1); Sodium 139 mmol/L (136-145); Total Protein,Serum 6.8 g/dl (6.3-8.2); Triglycerides 106 mg/dl (30-150); VLDL Cholesterol 21 mg/dL (0-40)
[2022-09-22 08:50] LABS: Direct LDL Cholesterol 107.09 mg/dL (100-129)
[2022-09-22 09:10] LABS: Thyroid Stimulating Hormone 8.07 uIU/mL (0.465-4.68)
== END ==
PROVIDERS: PCP Nurse Practitioner Family; Visit Provider Family Medicine
DX: E03.9 Hypothyroidism, unspecified (principal); I10 Essential (primary) hypertension; E78.5 Hyperlipidemia, unspecified
CPT/HCPCS: 36415; 80053; 80061; 84443

== ENCOUNTER → 2022-11-28 07:37 | Outpatient (CLI) | payer OTHER, SELFPAY ==
[2022-11-28 09:25] LABS: Thyroid Stimulating Hormone 0.57 uIU/mL (0.465-4.68)
== END ==
PROVIDERS: PCP Nurse Practitioner Family; Visit Provider Nurse Practitioner Family
DX: E03.9 Hypothyroidism, unspecified (principal)
CPT/HCPCS: 36415; 84443

== ENCOUNTER → 2022-12-18 08:45 | Outpatient (CLI) | payer OTHER, SELFPAY ==
[2022-12-18 09:35] LABS: Chol/HDL Ratio 3.6 (1-3.5); Cholesterol 182 mg/dl (140-200); HDL Cholesterol 51 mg/dl (40-60); Triglycerides 154 mg/dl (30-150); VLDL Cholesterol 31 mg/dL (0-40)
[2022-12-18 09:46] LABS: Direct LDL Cholesterol 96.91 mg/dL (100-129)
[2022-12-18 09:53] LABS: Free T4 (Free Thyroxine) 1.44 ng/dl (0.78-2.19)
[2022-12-18 10:08] LABS: Thyroid Stimulating Hormone 0.51 uIU/mL (0.465-4.68)
== END ==
PROVIDERS: PCP Nurse Practitioner Family; Visit Provider Nurse Practitioner Family
DX: E78.5 Hyperlipidemia, unspecified (principal); E03.9 Hypothyroidism, unspecified
CPT/HCPCS: 36415; 80061; 84439; 84443

== ENCOUNTER → 2023-01-01 08:08 | Outpatient (CLI) | payer OTHER, SELFPAY ==
--- NOTE | 2023-01-01 08:09 | MM_ITS ---
PROCEDURE INFORMATION: Exam: MG Bilateral Screening 3D Mammography Exam date and time: 01/01/2023 8:06 AM Age: 57 years old Clinical indication: Screening mammogram TECHNIQUE: Imaging protocol: Bilateral Screening tomosynthesis and 2D mammography including computer-aided detection (CAD) when performed. COMPARISON: 1. MG MM DIG SCREENING MAMM BI W/CAD 01/22/2022 3:28 PM 2. MG MM DIG SCREENING MAMM BI W/CAD 10/10/2020 8:03 AM 3. MG DMDXUAVL DIG MAMM-DX UNI A/VWS-LT W/CAD 09/26/2016 2:23 PM 4. MG DMSB DIG MAMM-SCREEN MAU W/CAD 09/10/2016 9:56 AM FINDINGS: MAMMOGRAPHY: Breast composition: There are scattered areas of fibroglandular density. Mass: Stable benign-appearing subcentimeter nodules are present in the right breast. No new or morphologically suspicious nodule has developed to suggest malignancy. Architectural distortion: No new or suspicious architectural distortion. Calcifications: No new or suspicious calcifications are present Asymmetric density: No new or suspicious asymmetric density is present Skin thickening: None. Axillary adenopathy: None. IMPRESSION: No mammographic evidence of malignancy. Recommend annual screening mammography unless otherwise clinically indicated. ASSESSMENT: BI-RADS category 2: Benign
--- NOTE | 2023-01-01 08:09 | XR_ITS ---
FINAL REPORT TECHNIQUE: Bone densitometry calculations of the lumbar spine and left hip were obtained. CLINICAL HISTORY: screening for osteoporosis in menopausal female FINDINGS: Using L1-4, the bone mineral density of the spine is 1.179 g/cm2, corresponding to T-score of 1.2. Using the left hip, the bone mineral density of the femoral neck is 0.779 g/cm2, corresponding to a T-score of -0.6. Using the right hip, the bone mineral density of the femoral neck is 0.772 g/cm2, corresponding to a T-score of -0.7. NOTE: T-score: Standard deviation compared with peak bone mass of young adult mean. *Following the recommendations of the International Society of Bone densitometry, classification of hip BMD is based on the lower of two T-scores; total hip or femoral neck. IMPRESSION: Normal bone mineral density of the lumbar spine and hip. FRAX was not reported because all of the T-scores are at or above -1.0 Reviewed, Interpreted and Dictated by Chon Kwan III, MD Transcribed by Leonora Salinas Authenticated and [facility]
== END ==
PROVIDERS: PCP Nurse Practitioner Family; Visit Provider Nurse Practitioner Family
DX: Z12.31 Encounter for screening mammogram for malignant neoplasm of breast (principal); Z13.820 Encounter for screening for osteoporosis
CPT/HCPCS: 77063; 77067; 77080

== ENCOUNTER → 2023-02-03 14:10 | Outpatient (POV) | payer OTHER, SELFPAY | PROVIDERS: PCP Nurse Practitioner Family; Visit Provider Dermatology | DX: Z00.00 Encounter for general adult medical examination without abnormal findings (principal) ==

== ENCOUNTER 2023-02-13 13:13 | Emergency (ER) | payer OTHER, SELFPAY ==
[2023-02-13] VITALS (7 sets, daily range): BP systolic 100–148; BP diastolic 67–82; PULSE 54–79; RESP 16–19; TEMP 36.6–36.9; O2SAT 97–100
--- NOTE | 2023-02-13 14:28 | EXP.UTC ---
Discharge Plan Disposition Patient Disposition: Still a Patient Condition: Fair Prescriptions Prescriptions: No Action cholestyramine (with sugar) 4 gram powder in packet 4 g PO BID PRN (Reason: malabsorption) Qty: 60 11RF Rx Instructions: administer w/meal; avoid other meds within 1hr before or 4-6hr after dose levothyroxine 125 mcg tablet 125 mcg PO DAILY Qty: 90 3RF meclizine 25 mg tablet 25 mg PO DAILY PRN (Reason: Vertigo) aspirin 81 mg tablet,chewable 81 mg PO DAILY lansoprazole 30 mg capsule,delayed release(DR/EC) 30 mg PO DAILY 30 Days Qty: 30 3RF estradiol 0.05 mg/24 hr patch weekly 1 patch TRANSDERMA WEEKLY lisinopril 10 mg tablet 10 mg PO DAILY Qty: 90 3RF meloxicam 15 mg tablet 15 mg PO DAILY Qty: 90 3RF xyarseoxubsxexn-dwmuoqrme-XK [Bromfed DM] 2-30-10 mg/5 mL syrup 7.5 ml PO Q4-6H PRN (Reason: cough) Qty: 473 0RF ondansetron 4 MG tablet,disintegrating 4 mg PO Q8HP PRN (Reason: Nausea) Qty: 30 0RF Referrals Follow up/Referrals: Ashtyn Albarado APRN [Primary Care Provider] - See instructions Clinical Impressions Clinical Impression: Abdominal pain Discharge ED Provider: Seferino Brar [facility] HPI General Stated complaint: right side pain/swelling Time Seen by Provider: 02/13/23 14:27 History of Present Illness Provider Complaint: She c/o right sided abdominal pain for the past approx 3 to 4 days. She denies vomiting, constipation, and diarrhea. She has had some nausea. Related Data Home Medications Medication Instructions Recorded Confirmed meclizine 25 mg tablet 25 mg PO DAILY PRN Vertigo 09/02/17 12/23/22 aspirin 81 mg chewable tablet 81 mg PO DAILY cardiac 09/25/22 12/23/22 estradiol 0.05 mg/24 hr weekly 1 patch transdermal WEEKLY hormone 09/25/22 12/23/22 transdermal patch Previous Rx's Medication Instructions Recorded ondansetron 4 mg disintegrating 4 mg PO Q8HP PRN Nausea ##30 06/29/18 tablet lansoprazole 30 mg capsule,delayed 30 mg PO DAILY . 30 days #30 caps 08/04/22 release lisinopril 10 mg tablet 10 mg PO DAILY Hypertension #90 09/25/22 tabs meloxicam 15 mg tablet 15 mg PO DAILY Pain #90 tabs 09/25/22 wboymkegdeqepky-yqvzhcxpvitoltp-VG 7.5 ml PO Q4-6H PRN cough #473 mL 12/01/22 2 mg-30 mg-10 mg/5 mL oral syrup (Bromfed DM) cholestyramine (with sugar) 4 gram 4 g PO BID PRN malabsorption #60 ea 12/23/22 powder for susp in a packet levothyroxine 125 mcg tablet 125 mcg PO DAILY #90 tabs 12/23/22 Allergies Allergy/AdvReac Type Severity Reaction Status Date / Time Bmlllux-EJC-HrO Reductase Allergy Severe Muscle Pain Verified 12/23/22 08:04 Inhibitor Sulfa (Sulfonamide Allergy Intermediate I-HIVES Verified 12/23/22 08:04 Antibiotics) [SULFA (SULFONAMIDE ANTIBIOTICS)] [facility] Disclaimer: The information contained in this section may have been updated after the patient was seen, as this information can be updated by other users. Medical History (Updated 02/13/23 @ 14:57 by Seferino Brar APRN) Arthritis Atypical chest pain Chest pain COVID-19 Dyspnea History of syncope Hypertensive emergency Malignant essential hypertension Myalgia Nausea and vomiting Palpitations Sinusitis Thyroid condition Surgical History H/O total hysterectomy H/O tubal ligation History of colonoscopy Family History Other Cancer Coronary artery disease Hypertension Social History Smoking Status: Never smoker second hand exposure: No alcohol intake: current counseling provided: none substance use type: denies use current occupational status: employed Travel in the last 8 weeks: None household members: spouse housing: house lives independently: Yes marital status: number of children: 2 number
[2023-02-13 14:44] LABS: Apearance,Urine Clear (Clear); Bilirubin,Urine Negative (Negative); Blood, Urine Negative (Negative); Color,Urine Yellow (Yellow); Glucose,Urine (UA) Negative (Negative); Ketones,Urine Negative (Negative); PH,Urine 5.5 (5.0-8.5); Protein,Urine Negative (Negative); Specific Gravity, Urine >= 1.030 (1.005-1.030); UTC Leukocyte Esterase,Urine Negative (Negative); UTC Nitrate,Urine Negative (Negative); Urobilinogen,Urine 0.2 EU/dl (0.2)
--- NOTE | 2023-02-13 14:57 | PC.NURSE ---
PATIENT SENT TO ER PER Tessa LOWE APRN FOR FURTHER EVALUATION. REPORT GIVEN TO DR. HOWELL BY Tessa LOWE APRN. PATIENT AMBULATED TO ER WITH [facility] STAFF ASSIST. FAMILY AT BEDSIDE
--- NOTE | 2023-02-13 15:20 | CT_ITS ---
FINAL REPORT CLINICAL HISTORY: RUQ and RLQ abd pain COMPARISON: November 13, 2020 FINDINGS: CT OF THE ABDOMEN AND PELVIS WITH CONTRAST Axial CT images of the abdomen and pelvis were obtained after the administration of IV contrast. Coronal and sagittal reformatted images were also obtained and reviewed. This study was performed with techniques to keep radiation doses as low as reasonably achievable (ALARA). Individualized dose reduction techniques using automated exposure control or adjustment of mA and/or kV according to the patient's size were employed. Abdomen: The lung bases are clear. The heart is normal in size. The liver has an unremarkable appearance, without evidence of mass or biliary ductal dilatation. The spleen is unremarkable. No adrenal mass is present. The pancreas has an unremarkable appearance. The kidneys are normal, without evidence of mass or hydronephrosis. The aorta is normal in caliber. There is no free fluid or adenopathy. No mass or abnormal fluid collection is seen. Pelvis: The appendix has an unremarkable appearance. The urinary bladder is unremarkable. No inflammatory process is seen. There is no evidence of mass or adenopathy. There is no evidence of bowel obstruction. Multiple presumed nabothian cysts are seen in the cervix. IMPRESSION: No evidence of acute intra-abdominal process. Authenticated and [facility]
[2023-02-13 15:29] LABS: Basophils # 0.1 K/mm3 (0-0.2); Basophils % 0.5 % (0.1-2.0); Eosinophils # 0.2 K/mm3 (0.0-0.4); Eosinophils % 1.9 % (0.1-12.0); Hematocrit 40.2 % (37.0-47.0); Hemoglobin 13.2 g/dL (12.2-16.2); Lymphocytes # 2.4 K/mm3 (0.7-4.5); Lymphocytes % 29.4 % (10-50); Mean Corpuscular HGB Conc 32.9 g/dL (31.8-35.4); Mean Corpuscular Hemoglobin 30.7 pg (27.0-31.2); Mean Corpuscular Volume 93.4 fl (81-99); Monocytes # 0.6 K/mm3 (0.1-1.0); Monocytes % 6.7 % (1.7-9.3); Neutrophils # 5.1 K/mm3 (1.8-7.8); Neutrophils % 61.5 % (37.0-80.0); Platelet Count 246 K/mm3 (142-424); Red Blood Count 4.31 M/mm3 (4.20-5.40); Red Cell Distribution Width 13.1 % (11.5-17.5); White Blood Count 8.2 K/mm3 (4.8-10.8)
--- NOTE | 2023-02-13 15:31 | HMH.EDGENADL ---
Discharge Plan Disposition Patient Disposition: Still a Patient Condition: Fair Prescriptions Prescriptions: No Action cholestyramine (with sugar) 4 gram powder in packet 4 g PO BID PRN (Reason: malabsorption) Qty: 60 11RF Rx Instructions: administer w/meal; avoid other meds within 1hr before or 4-6hr after dose levothyroxine 125 mcg tablet 125 mcg PO DAILY Qty: 90 3RF meclizine 25 mg tablet 25 mg PO DAILY PRN (Reason: Vertigo) aspirin 81 mg tablet,chewable 81 mg PO DAILY lansoprazole 30 mg capsule,delayed release(DR/EC) 30 mg PO DAILY 30 Days Qty: 30 3RF estradiol 0.05 mg/24 hr patch weekly 1 patch TRANSDERMA WEEKLY lisinopril 10 mg tablet 10 mg PO DAILY Qty: 90 3RF meloxicam 15 mg tablet 15 mg PO DAILY Qty: 90 3RF pzabmnrksnowxpk-ugpdkkdsh-GC [Bromfed DM] 2-30-10 mg/5 mL syrup 7.5 ml PO Q4-6H PRN (Reason: cough) Qty: 473 0RF ondansetron 4 MG tablet,disintegrating 4 mg PO Q8HP PRN (Reason: Nausea) Qty: 30 0RF Referrals Follow up/Referrals: Ashtyn Albarado APRN [Primary Care Provider] - See instructions Activity Restrictions/Add. Instructions Additional Instructions/Restrictions: Your emergency evaluation and treatment did not yield an emergent medical condition. Please follow your primary care doctor return the emergency department with worsening symptoms. As noted there is a significant amount of stool in your CAT scan and may be the cause of your symptoms. Escalate MiraLAX as discussed. If your symptoms continue to be in the upper region of your abdomen I would recommend you get an outpatient endoscopy if your symptoms continue. Return with any worsening symptoms Clinical Impressions Clinical Impression: Abdominal pain Instructions Patient Instructions: DI for Acute Abdominal Pain Discharge ED Provider: Ashu Jones General Adult HPI General Chief complaint: Abdominal Pain Stated complaint: right side pain/swelling Time Seen by Provider: 02/13/23 14:27 Mode of Arrival: Ambulatory Source of Information: Patient Limitations: No Limitations Description of Symptoms (Recalled from ER Triage Doc. by RN): 57 yo F presents to ED with c/o RUQ pain. symptoms ongoing for 1 week. History of Present Illness HPI narrative: Patient is a 57-year-old female presents today with right upper quadrant abdominal pain. She states this has been intermittent for the last week but has been persistent for the last 24 hours. She went to the urgent treatment clinic where they palpate her abdomen states she had right lower quadrant abdominal pain and sent her to the emergency department. She denies any nausea and vomiting she does have radiation to her back she denies any urinary symptoms burning frequency urgency or any change in bowel movements. No fevers or chills. No respiratory symptoms. Related Data Home Medications Medication Instructions Recorded Confirmed meclizine 25 mg tablet 25 mg PO DAILY PRN Vertigo 09/02/17 12/23/22 aspirin 81 mg chewable tablet 81 mg PO DAILY cardiac 09/25/22 12/23/22 estradiol 0.05 mg/24 hr weekly 1 patch transdermal WEEKLY hormone 09/25/22 12/23/22 transdermal patch Previous Rx's Medication Instructions Recorded ondansetron 4 mg disintegrating 4 mg PO Q8HP PRN Nausea ##30 06/29/18 tablet lansoprazole 30 mg capsule,delayed 30 mg PO DAILY . 30 days #30 caps 08/04/22 release lisinopril 10 mg tablet 10 mg PO DAILY Hypertension #90 09/25/22 tabs meloxicam 15 mg tablet 15 mg PO DAILY Pain #90 tabs 09/25/22 uxqbbwrblowjsaz-kuwldsjvpabhoce-SM 7.5 ml PO Q4-6H PRN cough #473 mL 12/01/22 2 mg-30 mg-10 mg/5 mL oral syrup (Bromfed DM) cholestyramine (with sugar) 4 gram 4 g PO BID PRN malabsorption #60 ea 12/23/22 powder for susp in a packet levothyroxine 125 mcg tablet 125 mcg PO DAILY #90 tabs 12/23/22 Allergies Allergy/AdvReac Type Severity Reaction Status Date / Time Wnlspgu-[id number]-DoG Reductase Allergy Severe Mus
[2023-02-13 15:36] LABS: Alanine Aminotransferase 30 U/L (12-78); Albumin Level 4.1 g/dl (3.5-5.0); Albumin/Globulin Ratio 1.6 (1.1-1.8); Alkaline Phosphatase 80 U/L (38-126); Anion Gap 8.8 mEq/L (5-15); Aspartate Amino Transferase 34 U/L (14-36); Bilirubin,Total 0.2 mg/dl (0.2-1.3); Blood Urea Nitrogen 18 mg/dl (7-17); Calcium 8.1 mg/dl (8.4-10.2); Carbon Dioxide 29 mmol/L (22.0-30.0); Chloride 106 mmol/L (98-107); Creatinine Clearance Estimated 76 mL/min (50-200); Estimated Glomerular Filt Rate 57 ml/min (>60); GFR (African American) 69 ML/MIN (>60); Globulin 2.5 g/dL (1.3-3.2); Glucose 106 mg/dl (74-100); Lipase 148 U/L (23-300); Potassium 3.8 mmoL/L (3.5-5.1); Sodium 140 mmol/L (136-145); Total Protein,Serum 6.6 g/dl (6.3-8.2)
== END 2023-02-13 17:09 | disposition home or self-care (01) ==
LOC: UTC 13:15 → ER 14:55
PROVIDERS: Nurse Practitioner Family; Emergency Provider Student in an Organized Health Care Education/Training Program; PCP Nurse Practitioner Family
DX: R10.11 Right upper quadrant pain (principal); I10 Essential (primary) hypertension; E03.9 Hypothyroidism, unspecified
CPT/HCPCS: 74177; 80053; 81003; 83690; 85025; 96361; 96374; 96375; 99285; J2405; Q9967

== ENCOUNTER 2023-03-24 18:40 | Outpatient (CLI) | payer OTHER, SELFPAY ==
[2023-03-24 20:00] LABS: Cholesterol 190 mg/dl (140-200); HDL Cholesterol 64 mg/dl (40-60); Triglycerides 87 mg/dl (30-150); VLDL Cholesterol 17 mg/dL (0-40)
[2023-03-24 20:18] LABS: Direct LDL Cholesterol 94.54 mg/dL (100-129)
[2023-03-24 20:35] LABS: Thyroid Stimulating Hormone 0.25 uIU/mL (0.465-4.68)
[2023-03-24 22:12] LABS: Free T4 (Free Thyroxine) 1.59 ng/dl (0.78-2.19)
== END 2023-03-24 23:59 ==
LOC: LAB.DROPOF 18:41
PROVIDERS: PCP Nurse Practitioner Family; Visit Provider Nurse Practitioner Family
DX: E03.9 Hypothyroidism, unspecified (principal); E78.2 Mixed hyperlipidemia
CPT/HCPCS: 36415; 80061; 84439; 84443

== ENCOUNTER 2023-03-31 07:39 | Outpatient (CLI) | payer OTHER, SELFPAY ==
--- NOTE | 2023-03-31 07:39 | US_ITS ---
FINAL REPORT CLINICAL HISTORY: RUQ pain, nausea COMPARISON: None FINDINGS: Sonographic images of the right upper quadrant were obtained. The pancreas is unremarkable in appearance. There is generalized increase in the echogenicity of the liver consistent with fatty infiltration of the liver. The gallbladder appears normal without evidence of gallstones.There is no evidence of biliary ductal dilatation.The common duct measures 5 mm. Limited images of the right kidney are unremarkable. IMPRESSION: Fatty infiltration of the liver. Reviewed, Interpreted and Dictated by Chon Kwan III, MD Transcribed by Cecilia Hoover Authenticated and [facility]
== END 2023-03-31 23:59 ==
LOC: RAD 07:39
PROVIDERS: PCP Nurse Practitioner Family; Visit Provider Nurse Practitioner Family
DX: R10.11 Right upper quadrant pain (principal); R11.0 Nausea
CPT/HCPCS: 76705

== ENCOUNTER 2023-04-05 15:38 | Emergency (ER) | payer OTHER, SELFPAY ==
[2023-04-05 15:55] VITALS: BP 136/95; PULSE 88; RESP 18; TEMP 36.8; O2SAT 97; BMI 29.2
--- NOTE | 2023-04-05 16:04 | ED_ITS ---
Discharge Plan Disposition Patient Disposition: Home, Self-Care Condition: Good Prescriptions Prescriptions: New Paxlovid 300 mg (150 mg x 2)-100 mg tablets,dose pack See Rx Instructions .ROUTE .COMPLEX Qty: 30 0RF Rx Instructions: take TWO 150 mg tablets of nirmatrelvir with ONE 100 mg tablet of ritonavir twice daily for 5 days benzonatate [benzonatate] 100 mg capsule 100 mg PO TIDP PRN (Reason: Cough) Qty: 30 0RF methylprednisolone 4 mg Tablets,Dose Pack 4 mg PO DIRECTED 6 Days Qty: 21 0RF Rx Instructions: Take 1 pack as directed for 6 days ondansetron 4 mg Tablet,Disintegrating 4 mg PO Q8H PRN (Reason: Nausea) Qty: 12 0RF No Action cholestyramine (with sugar) 4 gram powder in packet 4 g PO BID PRN (Reason: malabsorption) Qty: 60 11RF Rx Instructions: administer w/meal; avoid other meds within 1hr before or 4-6hr after dose meclizine 25 mg tablet 25 mg PO DAILY PRN (Reason: Vertigo) aspirin 81 mg tablet,chewable 81 mg PO DAILY lansoprazole 30 mg capsule,delayed release(DR/EC) 30 mg PO DAILY 30 Days Qty: 30 3RF estradiol 0.05 mg/24 hr patch weekly 1 patch TRANSDERMA WEEKLY lisinopril 10 mg tablet 10 mg PO DAILY Qty: 90 3RF meloxicam 15 mg tablet 15 mg PO DAILY Qty: 90 3RF levothyroxine 112 mcg tablet 112 mcg PO DAILY Qty: 90 3RF Referrals Follow up/Referrals: Ashtyn Albarado APRN [Primary Care Provider] - See instructions Activity Restrictions/Add. Instructions Additional Instructions/Restrictions: Drink plenty of fluids. Take tylenol or ibuprofen for pain or fever. Take the medications as directed. Follow up with your regular doctor. GO TO THE ER FOR ANY WORSENING SYMPTOMS Don't start the oral steroids until tomorrow, since you had the shot here today. Clinical Impressions Clinical Impression: COVID-19 Stand Alone Forms Stand Alone Forms: Work/School Release Instructions Patient Instructions: Coronavirus Disease 2019, Preventing the Spread of Coronavirus Discharge Instructions, Dexamethasone Injection Discharge ED Provider: Seferino Brar [facility] [place] General Stated complaint: body aches, VELA, runny nose Time Seen by Provider: 04/05/23 16:03 History of Present Illness Provider Complaint: She states that for the past 2 days she has had chills, body aches, sinus congestion, sore throat, ear pain and a cough. Related Data Home Medications Medication Instructions Recorded Confirmed meclizine 25 mg tablet 25 mg PO DAILY PRN Vertigo 09/02/17 04/05/23 aspirin 81 mg chewable tablet 81 mg PO DAILY cardiac 09/25/22 04/05/23 estradiol 0.05 mg/24 hr weekly 1 patch transdermal WEEKLY hormone 09/25/22 04/05/23 transdermal patch Previous Rx's Medication Instructions Recorded lansoprazole 30 mg capsule,delayed 30 mg PO DAILY . 30 days #30 caps 08/04/22 release lisinopril 10 mg tablet 10 mg PO DAILY Hypertension #90 09/25/22 tabs meloxicam 15 mg tablet 15 mg PO DAILY Pain #90 tabs 09/25/22 cholestyramine (with sugar) 4 gram 4 g PO BID PRN malabsorption #60 ea 12/23/22 powder for susp in a packet levothyroxine 112 mcg tablet 112 mcg PO DAILY #90 tabs 03/26/23 benzonatate 100 mg capsule 100 mg PO TIDP PRN Cough #30 caps 04/05/23 methylprednisolone 4 mg tablets in 4 mg PO DIRECTED 6 days #21 tabs 04/05/23 a dose pack nirmatrelvir 300 mg (150 mg See Rx Instructions PO .COMPLEX 04/05/23 x2)-ritonavir 100 mg tablet,dose #30 tabs pack (Paxlovid) ondansetron 4 mg disintegrating 4 mg PO Q8H PRN Nausea #12 tabs 04/05/23 tablet Allergies Allergy/AdvReac Type Severity Reaction Status Date / Time [id number] Reductase Allergy Severe Muscle Pain Verified 04/05/23 16:06 Inhibitor Sulfa (Sulfonamide Allergy Intermediate I-HIVES Verified 04/05/23 16:06 Antibiotics) [SULFA (SULFONAMIDE ANTIBIOTICS)] [facility] Disclaimer: The information contained in this section may have been updated after the patient was seen, as this information can be updated by other users. Medical History (Updated 04/05/23 @ 17:26 by Seferino Brar APRN) Abdominal pain Arthritis Atypical chest pain Chest pain COVID-19 Dyspnea History of syncope Hypertensive emergency Malignant essential hypertension Myalgia Nausea and vomiting Palpitations Right foot pain Sinusitis Thyroid condition Surgical History H/O total hysterectomy H/O tubal ligation History of colonoscopy Family History Other Cancer Coronary artery disease Hypertension Social History Smoking Status: Never smoker second hand exposure: No alcohol intake: current counseling provided: none substance use type: denies use current occupational status: employed Travel in the last 8 weeks: None household members: spouse housing: house lives independently: Yes marital status: number of children: 2 number of grandchildren: 3 skilled nursing: No ROS Obtained: Yes All systems reviewed & no additional complaints except as documented Constitutional Constitutional: Reports body ache, Reports chills, Denies fever(s) and Reports poor appetite Eyes Eyes: Reports system reviewed and no additional complaints, except as documented ENT Ears, Nose, Mouth, and Throat: Reports as per HPI Cardiovascular Cardiovascular: Reports system reviewed and no additional complaints, except as documented and Denies chest pain Respiratory Respiratory: Denies shortness of breath, Denies chest congestion, Reports cough, Denies stridor and Denies wheezing Gastrointestinal Gastrointestingal: Reports system reviewed and no additional complaints, except as documented; Denies abdominal pain, diarrhea or vomiting Musculoskeletal Musculoskeletal: Reports system reviewed and no additional complaints, except as documented and Denies arthralgias Integumentary/Breasts Skin/Breast: Reports system reviewed and no additional complaints, except as documented and Denies rash Neurologic Neurologic: Denies paresthesias Allergic/Immunologic Allergic/Immunologic: Denies wheezing Physical Exam General General appearance: alert and in no apparent distress Eye Eye exam: Present normal appearance, PERRL and EOMI ENT ENT exam: Present mucous membranes moist and normal external ear exam Expanded ENT Exam External ear exam: Present normal external inspection TM/Canal exam: Bilateral TM: erythema and bulging Nose exam: Absent sinus tenderness Nasal speculum exam: Bilateral: normal Mouth exam: Present normal external inspection; Absent drooling Teeth exam: Present normal inspection Throat exam: Present tonsillar erythema and tonsillomegaly Neck Neck exam: Present normal inspection, full ROM and trachea midline; Absent tenderness, lymphadenopathy or thyromegaly Chest Chest inspection: Present normal inspection and symmetric chest wall rise; Absent tenderness or rash Respiratory Respiratory exam: Present normal lung sounds bilaterally; Absent respiratory distress, wheezes, stridor or accessory muscle use Cardiovascular Cardiovascular exam: Present regular rate, normal rhythm and normal heart sounds Abdominal Exam Abdominal exam: Present soft; Absent distention, tenderness, guarding, rebound or rigidity Extremities Exam Extremities exam: Present normal inspection, full ROM and normal capillary refill; Absent tenderness or calf tenderness Back Exam Back exam: Present normal inspection and full ROM; Absent tenderness Neurological Exam Neurological exam: Present alert and oriented X3 Psychiatric Psychiatric exam: Present normal affect and normal mood Skin Skin exam: Present warm, dry, intact and normal color Lymphatic Lymphatic Findings: no adenopathy Medical Decision Making Medical Records Medical records reviewed: No I reviewed the patient's medical records. Ghanshyam Inquiry Pt receiving controlled substance: No Lab Data Lab results reviewed: Yes I reviewed the patient's lab results. Orders (Tests/Meds): ORDERS Category Date Time Status Rapid PCR Covid and Flu A/B Stat Lab 04/05/23 16:01 Ordered
[2023-04-05 16:15] LABS: UTC Strep Screen (Rapid) Negative (Negative)
[2023-04-05 16:26] LABS: Influenza A, PCR Not Detected (NotDetected); Influenza B, PCR Not Detected (NotDetected)
[2023-04-05 17:00] LABS: Coronavirus 19, PCR Detected (NotDetected)
[2023-04-05] MEDS: DEXAMETHASONE 4MG/ML 1ML VIAL 8 MG IM (17:25)
[2023-04-05 17:43] VITALS: BP 136/95; PULSE 88; RESP 18; TEMP 36.8; O2SAT 97
== END 2023-04-05 17:43 | disposition home or self-care (01) ==
PROVIDERS: Emergency Provider Nurse Practitioner Family; PCP Nurse Practitioner Family
DX: U07.1 COVID-19 (principal); R50.9 Fever, unspecified; R51.9 Headache, unspecified; R05.9 Cough, unspecified; R09.81 Nasal congestion; R07.0 Pain in throat; R11.0 Nausea; M79.18 Myalgia, other site; I10 Essential (primary) hypertension; E03.9 Hypothyroidism, unspecified
CPT/HCPCS: 87636; 87880; 96372; 99212; 99214; G0463

== ENCOUNTER 2023-04-23 07:39 | Day surgery (SDC) | payer OTHER, SELFPAY ==
[2023-04-23 07:46] VITALS: BMI 29.1
[2023-04-23 07:48] VITALS: BP 127/72; PULSE 76; RESP 18; TEMP 37; O2SAT 97
[2023-04-23 08:16] VITALS: PULSE 65
[2023-04-23 08:27] VITALS: BP 156/92; PULSE 65; PULSE 82; RESP 18; O2SAT 98
[2023-04-23] MEDS: CEFAZOLIN SODIUM 1 GM in 0.9 % SODIUM CHLORIDE 50 ML IV (08:29)
[2023-04-23] MEDS: LIDOCAINE 2% W/EPI 1:100,000 20ML VIAL 20 ML SQ (08:29)
[2023-04-23 08:48] VITALS: BP 132/81; PULSE 80; RESP 19; O2SAT 99
--- NOTE | 2023-04-23 14:28 | P.PCN_ITS ---
[facility] Loop Recorder Date: 04/23/23 Time: 08:30 Procedure Performed:: Removal of loop recorder Indication:: End-of-life Technique:: Patient was brought to the cardiac [facility] as an outpatient. After informed consent was obtained, 1% lidocaine was used to anesthetize the area over the loop recorder. Surgical scalpel was used to dissect down to the device and forceps were used to remove it with blunt dissection. After the device was removed, surgical glue was used to approximate the edges covered by Steri-Strips and then pressure dressing with Tegaderm. Patient tolerated procedure without complications. Impression:: Successful removal of loop recorder Serial Number:: Not recorded Plan:: Routine postop care
== END 2023-04-23 08:47 | disposition home or self-care (01) ==
PROVIDERS: PCP Nurse Practitioner Family; Visit Provider Internal Medicine
DX: Z45.09 Encounter for adjustment and management of other cardiac device (principal); I10 Essential (primary) hypertension; Z79.899 Other long term (current) drug therapy; Z86.16 Personal history of COVID-19; E03.9 Hypothyroidism, unspecified; G45.8 Other transient cerebral ischemic attacks and related syndromes; E78.5 Hyperlipidemia, unspecified
CPT/HCPCS: 33286

== ENCOUNTER 2023-05-08 11:24 | Outpatient (CLI) | payer OTHER, SELFPAY ==
[2023-05-08 12:35] LABS: Free T4 (Free Thyroxine) 1.22 ng/dl (0.78-2.19)
== END 2023-05-08 23:59 ==
LOC: LAB 11:25
PROVIDERS: PCP Nurse Practitioner Family; Visit Provider Nurse Practitioner Family
DX: E03.8 Other specified hypothyroidism (principal); G47.33 Obstructive sleep apnea (adult) (pediatric)
CPT/HCPCS: 36415; 84439; 84443

== ENCOUNTER 2023-06-04 09:23 | Outpatient (CLI) | payer OTHER, SELFPAY ==
--- NOTE | 2023-06-04 09:30 | XR_ITS ---
FINAL REPORT CLINICAL HISTORY: low back pain with left leg radiculopathy COMPARISON: None FINDINGS: 3 views of the lumbar spine were obtained. There is no evidence of fracture or dislocation. The vertebral alignment is normal. There is mild and moderate degenerative change. Multilevel osteophytes are noted. There is facet arthropathy in the lower lumbar spine. There is straightening of the spine likely due to positioning or muscle spasm. No paraspinous soft tissue abnormalities identified. IMPRESSION: Mild and moderate degenerative change without acute bony abnormality. Straightening, likely due to positioning or muscle spasm. Reviewed, Interpreted and Dictated by Chon Kwan III, MD Transcribed by More Villalpando Authenticated and [facility]
--- NOTE | 2023-06-04 09:30 | XR_ITS ---
FINAL REPORT CLINICAL HISTORY: left heel pain COMPARISON: None FINDINGS: LEFT FOOT: Three views of the left foot were obtained. There is no acute fracture or dislocation. The joint spaces are intact. There is a small plantar calcaneal spur. There is no soft tissue abnormality. IMPRESSION: No acute bony abnormality. Small plantar calcaneal spur. Reviewed, Interpreted and Dictated by Chon Kwan III, MD Transcribed by More Villalpando Authenticated and [facility]
== END 2023-06-04 23:59 ==
LOC: RAD 09:24
PROVIDERS: PCP Nurse Practitioner Family; Visit Provider Nurse Practitioner Family
DX: M54.42 Lumbago with sciatica, left side (principal); M79.672 Pain in left foot
CPT/HCPCS: 72100; 73630

== ENCOUNTER 2023-06-07 10:49 | Observation (INO) | payer OTHER, SELFPAY ==
[2023-06-07] VITALS (21 sets, daily range): BP systolic 123–172; BP diastolic 61–99; PULSE 84–103; RESP 16–20; TEMP 36.7–37.1; O2SAT 94–99
--- NOTE | 2023-06-07 10:59 | ED_ITS ---
Discharge Plan Disposition Patient Disposition: Admitted Condition: Good Clinical Impressions Clinical Impression: Acute pancreatitis, Nausea & vomiting Discharge ED Provider: Maude Palacio General Adult HPI General Chief complaint: Nausea/Vomiting/Diarrhea Stated complaint: VELA, vomiting, weakness Time Seen by Provider: 06/07/23 10:51 Mode of Arrival: Ambulatory Source of Information: Patient Limitations: No Limitations Description of Symptoms (Recalled from ER Triage Doc. by RN): nausea vomiting since 7am History of Present Illness HPI narrative: This patient is a 58-year-old female with a history of TIA, hypothyroidism, hypertension, hyperlipidemia, and GERD presenting to the emergency department for evaluation with concern for nausea, vomiting, and diarrhea that started this morning. She states that since 8 AM, she has not been able to keep anything down. No significant abdominal pain, except for soreness in her upper abdomen after vomiting. Her only abdominal surgical history includes hysterectomy. She denies any other concerns. She tried 4 mg sublingual Zofran at home with minimal improvement. Emesis is nonbloody and nonbilious and diarrhea is nonbloody. Related Data Home Medications Medication Instructions Recorded Confirmed aspirin 81 mg chewable tablet 81 mg PO DAILY Heart Health 09/25/22 06/07/23 estradiol 0.05 mg/24 hr weekly 1 patch transdermal WEEKLY hormone 09/25/22 06/07/23 transdermal patch replacement lansoprazole 30 mg capsule,delayed 30 mg PO DAILY Acid Reflux 06/04/23 06/07/23 release cholestyramine (with sugar) 4 gram 4 g PO BID 06/07/23 06/07/23 powder for susp in a packet cyclobenzaprine 10 mg tablet 10 mg PO TIDP PRN muscle spasm 06/07/23 06/07/23 levothyroxine 112 mcg tablet 112 mcg PO DAILY Thyroid 06/07/23 06/07/23 lisinopril 10 mg tablet 10 mg PO DAILY High Blood Pressure 06/07/23 06/07/23 methylprednisolone 4 mg tablets in 4 mg PO DIRECTED 06/07/23 06/07/23 a dose pack (Medrol (Cristofer)) Previous Rx's Medication Instructions Recorded meloxicam 15 mg tablet 15 mg PO DAILY Pain #90 tabs 09/25/22 mupirocin 2 % topical ointment 1 applic topical BID infected loop 06/04/23 recorder incision #15 grams Allergies Allergy/AdvReac Type Severity Reaction Status Date / Time [id number] Reductase Allergy Severe Muscle Pain Verified 06/04/23 08:42 Inhibitor Sulfa (Sulfonamide Allergy Intermediate I-HIVES Verified 06/04/23 08:42 Antibiotics) [SULFA (SULFONAMIDE ANTIBIOTICS)] [facility] Disclaimer: The information contained in this section may have been updated after the patient was seen, as this information can be updated by other users. Medical History Nausea COVID-19 Encounter for loop recorder at end of battery life Abdominal pain Sinusitis Myalgia Right foot pain COVID-19 Arthritis Thyroid condition Malignant essential hypertension Dyspnea Hypertensive emergency Chest pain History of syncope Palpitations Nausea and vomiting Atypical chest pain Surgical History History of colonoscopy H/O total hysterectomy H/O tubal ligation Family History Other Cancer Coronary artery disease Hypertension Social History Smoking Status: Never smoker second hand exposure: No alcohol intake: current counseling provided: none substance use type: denies use current occupational status: employed Travel in the last 8 weeks: None household members: spouse housing: house lives independently: Yes marital status: number of children: 2 number of grandchildren: 3 longterm: No ROS Obtained: Yes All systems reviewed & no additional complaints except as documented Physical Exam General General appearance: alert Comment: Actively retching/vomiting Head Head exam: atraumatic and normocephalic Eye Eye exam: Present normal appearance, PERRL and EOMI ENT ENT exam: Present normal exam, normal oropharynx, mucous membranes moist and normal external ear exam Neck Neck exam: Present normal inspection, full ROM and trachea midline; Absent tenderness Chest Chest inspection: Present normal inspection and symmetric chest wall rise; Absent tenderness Respiratory Respiratory exam: Present normal lung sounds bilaterally; Absent respiratory distress, wheezes, stridor or accessory muscle use Cardiovascular Cardiovascular exam: Present regular rate and normal rhythm Abdominal Exam Abdominal exam: Present soft; Absent distention, tenderness or guarding Extremities Exam Extremities exam: Present normal inspection, full ROM and normal capillary refill; Absent tenderness or edema Back Exam Back exam: Present normal inspection and full ROM; Absent tenderness Neurological Exam Neurological exam: Present alert, oriented X3, CN II-XII intact and normal gait; Absent motor sensory deficit Psychiatric Psychiatric exam: Present normal affect and normal mood Skin Skin exam: Present warm and dry Medical Decision Making Medical Records Medical records reviewed: Yes I reviewed the patient's medical records. Ghanshyam Inquiry Pt receiving controlled substance: No Vital Signs: 06/07/23 10:57 06/07/23 10:59 06/07/23 11:15 Temperature 98.2 F Temperature Source Oral Pulse Rate 102 H 103 H Pulse Rate [Left Radial] 100 H Respiratory Rate 20 Blood Pressure 152/91 H 138/85 Blood Pressure [Left Arm] 172/99 H Blood Pressure Mean Blood Pressure Mean [Left Arm] 123 02 Sat by Pulse Oximetry 95 95 94 L Oxygen Delivery Method Room Air Nasal Cannula 06/07/23 11:30 06/07/23 11:45 06/07/23 12:16 Temperature Temperature Source Pulse Rate 100 H 103 H 84 Pulse Rate [Left Radial] Respiratory Rate 20 20 Blood Pressure 139/81 171/91 H 123/75 Blood Pressure [Left Arm] Blood Pressure Mean 99 117 Blood Pressure Mean [Left Arm] 02 Sat by Pulse Oximetry 95 96 97 Oxygen Delivery Method Room Air 06/07/23 12:30 06/07/23 13:00 06/07/23 13:15 Temperature Temperature Source Pulse Rate 101 H 94 H 89 Pulse Rate [Left Radial] Respiratory Rate 18 Blood Pressure 142/83 H 131/65 124/61 Blood Pressure [Left Arm] Blood Pressure Mean 81 Blood Pressure Mean [Left Arm] 02 Sat by Pulse Oximetry 94 L 96 98 Oxygen Delivery Method 06/07/23 13:30 06/07/23 13:45 06/07/23 14:01 Temperature Temperature Source Pulse Rate 95 H 91 H 93 H Pulse Rate [Left Radial] Respiratory Rate Blood Pressure 137/74 150/82 H 160/75 H Blood Pressure [Left Arm] Blood Pressure Mean Blood Pressure Mean [Left Arm] 02 Sat by Pulse Oximetry 96 95 97 Oxygen Delivery Method Room Air Room Air 06/07/23 14:15 06/07/23 14:30 06/07/23 14:45 Temperature Temperature Source Pulse Rate 93 H 93 H 94 H Pulse Rate [Left Radial] Respiratory Rate Blood Pressure 139/77 131/71 143/75 H Blood Pressure [Left Arm] Blood Pressure Mean Blood Pressure Mean [Left Arm] 02 Sat by Pulse Oximetry 96 96 97 Oxygen Delivery Method 06/07/23 15:00 Temperature Temperature Source Pulse Rate 98 H Pulse Rate [Left Radial] Respiratory Rate 20 Blood Pressure 141/76 H Blood Pressure [Left Arm] Blood Pressure Mean 92 Blood Pressure Mean [Left Arm] 02 Sat by Pulse Oximetry 98 Oxygen Delivery Method Lab Data Lab results reviewed: Yes I reviewed the patient's lab results. Lab Results 06/07/23 10:57: WBC 17.0 H, RBC 4.83, Hgb 15.3, Hct 47.9 H, MCV 99.3 H, MCH 31.7 H, MCHC 31.9, RDW 13.7, Plt Count 293, MPV 9.2, Neut % (Auto) 89.8 H, Lymph % (Auto) 4.6 L, [place] % (Auto) 4.0, Eos % (Auto) 0.5, Baso % (Auto) 1.1, Neut # (Auto) 15.3 H, Lymph # (Auto) 0.8, [place] # (Auto) 0.7, Eos # (Auto) 0.1, Baso # (Auto) 0.2, Total Counted 100, Neutrophils % (Manual) 90 H, Lymphocytes % (Manual) 6 L, Monocytes % (Manual) 4, Platelet Estimate Normal, RBC Morphology Normal, Sodium 141, Potassium 3.8, Chloride 106, Carbon Dioxide 30, Anion Gap 8.8, BUN 26 H, Creatinine 1.00, Estimated Creat Clear 75, Estimated GFR 57 L, Est GFR ( Amer) 68, Glucose 142 H, Calcium 8.6, Total Bilirubin 0.5, AST 29, ALT 36, Alkaline Phosphatase 77, Total Protein 6.8, Albumin 4.3, Globulin 2.5, Albumin/Globulin Ratio 1.7, Lipase 711 H 06/07/23 12:03: Urine Color Straw, Urine Appearance Clear, Urine pH 6.5, Ur Specific [place] 1.010, Urine Protein Negative, Urine Glucose (UA) Negative, Urine Ketones Negative, Urine Blood Negative, Urine Nitrate Negative, Urine Bilirubin Negative, Urine Urobilinogen 0.2, Ur Leukocyte Esterase Negative, Urine RBC Occasional, Urine WBC Occasional, Ur Squamous Epith Cells 3-5, Urine Bacteria 1+ 06/07/23 10:57 06/07/23 10:57 Orders (Tests/Meds): ED MEDICATIONS Generic Name Dose Route Start Last Admin Trade Name Freq PRN Reason Stop Dose Admin Sodium Chloride 10 ml 06/07/23 11:47 06/07/23 11:48 Sodium Chloride 0.9% 10ml Syr (Rad Only) IV 07/07/23 11:46 10 ml NEEDED PRN Administration Maintain IV Site Discontinued Medications Generic Name Dose Route Start Last Admin Trade Name Freq PRN Reason Stop Dose Admin Lactated Ringer's 1,000 mls @ 999 mls/hr 06/07/23 10:55 06/07/23 11:01 Lactated Ringer's 1000 Ml Bag IV 06/07/23 11:55 999 mls/hr .Q1H1M ONE Administration Iopamidol 75 ml 06/07/23 11:47 06/07/23 11:48 Iopamidol-370 (76%);100ml Bottle IV 06/07/23 11:48 75 ml ONCE ONE Administration Ondansetron HCl 4 mg 06/07/23 10:52 06/07/23 11:01 Ondansetron 4mg Odt SL 06/07/23 10:53 4 mg ONCE ONE Administration ORDERS Category Date Time Status CT abdomen pelvis w con Stat Cat Scan 06/07/23 11:25 Completed Complete Blood Count Auto Diff Stat Lab 06/07/23 10:57 Completed Comprehensive Metabolic Panel Stat Lab 06/07/23 10:57 Completed Lipase Stat Lab 06/07/23 10:57 Completed Urinalysis and Microscopic Stat Lab 06/07/23 12:03 Completed Medical Decision Narrative: In summary, this patient is a 58-year-old female presenting to the Emergency Department for evaluation of nausea, vomiting, and diarrhea that started this morning. Differential diagnoses considered include but are not limited to gastroenteritis, colitis, pancreatitis, cholecystitis. Ruling out the most morbid conditions drove assessment. On assessment, the patient is actively vomiting. Emesis is nonbloody nonbilious, and abdominal exam is benign with no localized tenderness. At this time based on exam, doubt surgical intra-abdominal pathology. I feel she likely has infectious enteritis. Workup included CBC, CMP, lipase, urinalysis. she was given a bolus of IV fluids as well as sublingual Zofran. Labs demonstrated concern for acute pancreatitis with a lipase of 700. Liver enzymes and bilirubin are within normal limits. She also has a leukocytosis of 17. She denies any history of pancreatitis in the past, and she is does still have her gallbladder. She also denies any significant alcohol use. Given this, decision was made to order CT abdomen and pelvis with IV contrast to further assess. I independently interpreted CT scan prior to radiology read and noted no large pancreatic abscess or cyst. Her gallbladder appears to be within normal limits. Given this, I feel that she likely has uncomplicated acute pancreatitis. Patient continues to have nausea and vomiting after administration of Zofran and fluids. Given this, she was given IV Phenergan. This kept her from vomiting, but her nausea is so severe that she cannot even tolerate sips of liquid. She states overall she feels awful. Given intractable symptoms, I feel she would benefit from admission for fluid resuscitation and symptomatic management. I had an interactive discussion with the hospitalist who admitted the patient for further evaluation and management. Critical Care Critical Care Time Critical Care Time: No
[2023-06-07] MEDS: LACTATED RINGERS 1000ML 1,000 ML 999 ML IV (11:01)
[2023-06-07] MEDS: ONDANSETRON 4MG ODT 4 MG SL (11:01)
[2023-06-07 11:16] LABS: Chloride 106 mmol/L (98-107)
[2023-06-07 11:17] LABS: Potassium 3.8 mmoL/L (3.5-5.1); Sodium 141 mmol/L (136-145)
[2023-06-07 11:19] LABS: Alanine Aminotransferase 36 U/L (12-78); Albumin Level 4.3 g/dl (3.5-5.0); Albumin/Globulin Ratio 1.7 (1.1-1.8); Alkaline Phosphatase 77 U/L (38-126); Anion Gap 8.8 mEq/L (5-15); Aspartate Amino Transferase 29 U/L (14-36); Bilirubin,Total 0.5 mg/dl (0.2-1.3); Blood Urea Nitrogen 26 mg/dl (7-17); Calcium 8.6 mg/dl (8.4-10.2); Carbon Dioxide 30 mmol/L (22.0-30.0); Creatinine Clearance Estimated 75 mL/min (50-200); Estimated Glomerular Filt Rate 57 ml/min (>60); GFR (African American) 68 ML/MIN (>60); Globulin 2.5 g/dL (1.3-3.2); Glucose 142 mg/dl (74-100); Total Protein,Serum 6.8 g/dl (6.3-8.2)
[2023-06-07 11:24] LABS: Lipase 711 U/L (23-300)
--- NOTE | 2023-06-07 11:25 | CT_ITS ---
PROCEDURE INFORMATION: Exam: CT Abdomen And Pelvis With Contrast Exam date and time: 06/07/2023 11:38 AM Age: 58 years old Clinical indication: Condition or disease; Pancreatic condition; Pancreatitis; Prior surgery; Surgery date: 6+ months; Surgery type: Hysterectomy; Additional info: Acute pancreatitis, unknown etiology TECHNIQUE: Imaging protocol: Computed tomography of the abdomen and pelvis with contrast. Radiation optimization: All CT scans at this facility use at least one of these dose optimization techniques: automated exposure control; mA and/or kV adjustment per patient size (includes targeted exams where dose is matched to clinical indication); or iterative reconstruction. Contrast material: ISOVUE; Contrast volume: 75 ml; Contrast route: IV; COMPARISON: CT ABDOMEN PELVIS W CON 02/13/2023 3:48 PM FINDINGS: Liver: Fatty infiltration of the liver. Gallbladder and bile ducts: Normal. No calcified stones. No ductal dilation. Pancreas: Normal. No edema or adjacent inflammatory changes. No ductal dilation. Spleen: Normal. No splenomegaly. Adrenal glands: Normal. No mass. Kidneys and ureters: Normal. No hydronephrosis. Stomach and bowel: Suggestion of mucosal thickening within multiple small bowel loops in the left abdomen. No proximal obstruction. Nonspecific enteritis. Appendix: No evidence of appendicitis. Intraperitoneal space: Unremarkable. No free air. No significant fluid collection. Vasculature: Unremarkable. No abdominal aortic aneurysm. Lymph nodes: Unremarkable. No enlarged lymph nodes. Urinary bladder: Unremarkable as visualized. Reproductive: Previous hysterectomy. Stable nabothian cysts in the cervix. Bones/joints: Unremarkable. No acute fracture. Soft tissues: Unremarkable. IMPRESSION: 1. No CT evidence of acute pancreatitis. 2. Suggestion of mucosal thickening within multiple small bowel loops in the left abdomen. No proximal obstruction. Nonspecific enteritis.
--- NOTE | 2023-06-07 11:25 | PC.NURSE ---
Dr. Palacio notified of critical lipase
[2023-06-07 11:27] LABS: Basophils # 0.2 K/mm3 (0-0.2); Basophils % 1.1 % (0.1-2.0); Eosinophils # 0.1 K/mm3 (0.0-0.4); Eosinophils % 0.5 % (0.1-12.0); Hematocrit 47.9 % (37.0-47.0); Hemoglobin 15.3 g/dL (12.2-16.2); Lymphocytes # 0.8 K/mm3 (0.7-4.5); Lymphocytes % 4.6 % (10-50); Mean Corpuscular HGB Conc 31.9 g/dL (31.8-35.4); Mean Corpuscular Hemoglobin 31.7 pg (27.0-31.2); Mean Corpuscular Volume 99.3 fl (81-99); Mean Platelet Volume 9.2 fl (7.4-10.4); Monocytes # 0.7 K/mm3 (0.1-1.0); Neutrophils # 15.3 K/mm3 (1.8-7.8); Neutrophils % 89.8 % (37.0-80.0); Platelet Count 293 K/mm3 (142-424); Red Blood Count 4.83 M/mm3 (4.20-5.40); Red Cell Distribution Width 13.7 % (11.5-17.5)
--- NOTE | 2023-06-07 11:29 | PC.NURSE ---
pt was given a pillow with case and turned lights down. is at bs and call light in reach
[2023-06-07 11:32] LABS: MANUAL DIFFERENTIAL MANUAL DIFFERENTIAL (MANUAL DIFF)
[2023-06-07] MEDS: IOPAMIDOL-370 (76%);100ML BOTTLE 75 ML IV (11:48)
[2023-06-07] MEDS: SODIUM CHLORIDE 0.9% 10ML SYR (RAD ONLY) 10 ML IV (11:48)
[2023-06-07 12:10] LABS: Microscopic, Urine URINE MICROSCOPIC (MICROSCOPIC)
[2023-06-07 12:18] LABS: Lymphocytes % 6 % (10-50); Monocytes % 4 % (2-9); Neutrophils % 90 % (42-76); Platelet Estimate Normal; RBC Morphology Normal; Total Cells Counted 100
[2023-06-07 12:20] LABS: Appearance,Urine CLEAR (Clear); Bilirubin,Urine Negative (Negative); Blood, Urine Negative (Negative); Glucose,Urine (UA) Negative (Negative); Ketones,Urine Negative (Negative); Leukocyte Esterase,Urine Negative (Negative); Nitrate,Urine Negative (Negative); PH,Urine 6.5 (5.0-8.5); Protein,Urine Negative (Negative); Urobilinogen,Urine 0.2 EU/dl (0.2)
[2023-06-07 12:23] LABS: Color,Urine Straw (Yellow)
[2023-06-07 12:50] LABS: Bacteria,Urine 1+ /lpf; RBC,Urine Occasional #/hpf (0-3); WBC,Urine Occasional #/hpf (0-3)
--- NOTE | 2023-06-07 14:23 | PC.NURSE ---
call made to house calls nurse for pt admission for pancreatitis.
--- NOTE | 2023-06-07 14:39 | HMH.PHAINT1 ---
Pharmacy Intervention Comments: MEDICATION RECONCILIATION COMPLETED ON PATIENT USING EXTERNAL FILL HISTORY FROM PHARMACY AND LIST FROM PCP OFFICE. -JOEL LY, JULIAD
--- NOTE | 2023-06-07 14:45 | PC.NURSE ---
Admissions notified of admit to room 279 in OB for pancreatitis to . OBS.
--- NOTE | 2023-06-07 15:19 | PC.NURSE ---
REport received from [facility]
--- NOTE | 2023-06-07 15:24 | PC.NURSE ---
report called to александр on OB floor
--- NOTE | 2023-06-07 15:35 | PC.NURSE ---
took pt to ob
--- NOTE | 2023-06-07 15:55 | PC.NURSE ---
Spoke with Rafael- orders for one time dose of Toradol 15mg iv x1.
[2023-06-07] MEDS: HEPARIN SODIUM 5,000 UNIT/ML VIAL 5000 UNIT SQ ×2 (16:04→23:49)
[2023-06-07] MEDS: KETOROLAC 30MG/ML VIAL 15 MG IV (16:04)
[2023-06-07] MEDS: 0.9 % SODIUM CHLORIDE 1000ML 1,000 ML 100 ML IV (16:05)
--- NOTE | 2023-06-07 16:50 | EXP.HP ---
History of Present Illness *Admission Date: 06/07/23 *Reason for visit:: abdominal pain *History of present illness: Patient is a 58-year-old female with past medical history of hypertension hyperlipidemia TIA GERD who presents to the hospital due to nausea and vomiting. According to patient she also has diarrhea, he started feeling bad since this morning, she has not been able to hold down food. Her vomiting is nonbloody, she has not noticed any blood in her stool. She denies previous similar symptoms. Denied fever chills. [facility] Disclaimer: The information contained in this section may have been updated after the patient was seen, as this information can be updated by other users. Medical History Nausea COVID-19 Encounter for loop recorder at end of battery life Abdominal pain Sinusitis Myalgia Right foot pain COVID-19 Arthritis Thyroid condition Malignant essential hypertension Dyspnea Hypertensive emergency Chest pain History of syncope Palpitations Nausea and vomiting Atypical chest pain Surgical History History of colonoscopy H/O total hysterectomy H/O tubal ligation Family History Other Cancer Coronary artery disease Hypertension Social History (Updated 06/07/23 @ 15:42 by Komal Leija RN) Smoking Status: Never smoker second hand exposure: No alcohol intake: current counseling provided: none substance use type: denies use current occupational status: employed Travel in the last 8 weeks: None household members: spouse housing: house lives independently: Yes marital status: number of children: 2 number of grandchildren: 3 retirement: No Review of Systems Review of Systems Review of systems (narrative): as per HPI Meds Home Medications and Allergies Home Medications Medication Instructions Recorded Confirmed Type aspirin 81 mg chewable tablet 81 mg PO DAILY Heart Health 09/25/22 06/07/23 History estradiol 0.05 mg/24 hr weekly 1 patch transdermal WEEKLY hormone 09/25/22 06/07/23 History transdermal patch replacement meloxicam 15 mg tablet 15 mg PO DAILY Pain #90 tabs 09/25/22 06/07/23 Rx lansoprazole 30 mg capsule,delayed 30 mg PO DAILY Acid Reflux 06/04/23 06/07/23 History release mupirocin 2 % topical ointment 1 applic topical BID infected loop 06/04/23 06/07/23 Rx recorder incision #15 grams cholestyramine (with sugar) 4 gram 4 g PO BID 06/07/23 06/07/23 History powder for susp in a packet cyclobenzaprine 10 mg tablet 10 mg PO TIDP PRN muscle spasm 06/07/23 06/07/23 History levothyroxine 112 mcg tablet 112 mcg PO DAILY Thyroid 06/07/23 06/07/23 History lisinopril 10 mg tablet 10 mg PO DAILY High Blood Pressure 06/07/23 06/07/23 History methylprednisolone 4 mg tablets in 4 mg PO DIRECTED 06/07/23 06/07/23 History a dose pack (Medrol (Cristofer)) New Prescriptions to Start Prescriptions: Allergies Allergy/AdvReac Type Severity Reaction Status Date / Time [id number] Reductase Allergy Severe Muscle Pain Verified 06/07/23 15:32 Inhibitor Sulfa (Sulfonamide Allergy Intermediate I-HIVES Verified 06/07/23 15:32 Antibiotics) [SULFA (SULFONAMIDE ANTIBIOTICS)] Exam Data for Last 24 hours Vital signs and Labs for Last 24 Hours: Temp Pulse Resp BP Pulse Ox O2 Del Method 98.0 F 93 H 16 141/76 H 97 Room Air 06/07/23 15:39 06/07/23 15:39 06/07/23 15:39 06/07/23 15:39 06/07/23 15:15 06/07/23 13:45 Laboratory Results - last 24 hr 06/07/23 10:57: WBC 17.0 H, RBC 4.83, Hgb 15.3, Hct 47.9 H, MCV 99.3 H, MCH 31.7 H, MCHC 31.9, RDW 13.7, Plt Count 293, MPV 9.2, Neut % (Auto) 89.8 H, Lymph % (Auto) 4.6 L, [place] % (Auto) 4.0, Eos % (Auto) 0.5, Baso % (Auto) 1.1, Neut # (Auto) 15.3 H, Lymph # (Auto) 0.8, [place] # (Auto) 0.7, Eos # (Auto) 0.1, Baso # (Auto) 0.2, Total Counted 100, Neutrophils % (Manual) 90 H, Lymphocytes % (Manual) 6 L, Monocytes % (Manual) 4, Platelet Estimate Normal, RBC Morphology Normal, Sodium 141, Potassium 3.8, Chloride 106, Carbon Dioxide 30, Anion Gap 8.8, BUN 26 H, Creatinine 1.00, Estimated Creat Clear 75, Estimated GFR 57 L, Est GFR ( Amer) 68, Glucose 142 H, Calcium 8.6, Total Bilirubin 0.5, AST 29, ALT 36, Alkaline Phosphatase 77, Total Protein 6.8, Albumin 4.3, Globulin 2.5, Albumin/Globulin Ratio 1.7, Lipase 711 H 06/07/23 12:03: Urine Color Straw, Urine Appearance Clear, Urine pH 6.5, Ur Specific [place] 1.010, Urine Protein Negative, Urine Glucose (UA) Negative, Urine Ketones Negative, Urine Blood Negative, Urine Nitrate Negative, Urine Bilirubin Negative, Urine Urobilinogen 0.2, Ur Leukocyte Esterase Negative, Urine RBC Occasional, Urine WBC Occasional, Ur Squamous Epith Cells 3-5, Urine Bacteria 1+ I & O for Last 24 hours: Intake & Output 06/04/23 06/05/23 06/06/23 06/07/23 23:59 23:59 23:59 23:59 Weight 79.379 kg Constitutional Constitutional: no acute distress *Routine HEENT Exam Head: Present normocephalic Eye: Present EOMI and PERRL ENT: Present mucous membranes moist *Routine Neck Exam Neck: Present supple; Absent lymphadenopathy *Routine Respiratory Exam Respiratory: Present CTA bilaterally *Routine Cardiovascular Exam Cardiovascular: Present RRR *Routine Abdominal Exam Abdominal: Present soft, normoactive bowel sounds and tenderness Comments: tender in epigastric area *Routine Rectal Exam Rectal:: deferred *Routine Genitalia Exam Genitalia:: deferred *Routine Extremities Exam Extremities: Absent cyanosis, clubbing or edema *Routine Skin Exam Skin: Present warm; Absent rash *Routine Neurological Exam Neurological: Present alert and oriented X3 Assessment and Plan *Assessment and plan (1) Acute pancreatitis: Status: Acute Category: Medical Code(s): K85.90 - Acute pancreatitis without necrosis or infection, unspecified (2) Nausea & vomiting: Status: Acute Category: Medical Code(s): R11.2 - Nausea with vomiting, unspecified Plan Patient is a 58-year-old female with past medical history of hypertension hyperlipidemia TIA GERD who presents to the hospital due to nausea and vomiting. According to patient she also has diarrhea, he started feeling bad since this morning, she has not been able to hold down food. Her vomiting is nonbloody, she has not noticed any blood in her stool. She denies previous similar symptoms. Denied fever chills. She will patient has been [place]. Assessment and plan Nausea vomiting diarrhea likely secondary to enteritis Acute pancreatitis Elevated lipase Leukocytosis likley reactive Start IV fluids N.p.o. Pain control Advance diet as tolerated Monitor and replace electrolytes Check a stool pathogen Hx of malabsorption - hold home cholestyramine for now DVT prophylaxis-heparin
--- NOTE | 2023-06-07 19:00 | PC.NURSE ---
REport to gertrudis jason RN
[2023-06-07] MEDS: PANTOPRAZOLE 40MG VIAL 40 MG IV (20:23)
[2023-06-08] MEDS: 0.9 % SODIUM CHLORIDE 1000ML 1,000 ML 100 ML IV ×2 (02:07→12:11)
[2023-06-08 04:00] VITALS: BP 140/84; PULSE 87; TEMP 36.7; O2SAT 99
--- NOTE | 2023-06-08 04:37 | PC.NURSE ---
patient has rested throughout the night comfortably, no periods of N/V. pt states she feels better than when she came in. vitals are stable, lung sounds clear throughout, bowel sounds hyperactive in all quadrants upon reassessment. patient has ambulated to the bathroom independently throughout the shift. patient denies needs at this time.
[2023-06-08 06:32] LABS: Basophils % 0.6 % (0.1-2.0); Eosinophils # 0.1 K/mm3 (0.0-0.4); Eosinophils % 1.6 % (0.1-12.0); Lymphocytes # 1.3 K/mm3 (0.7-4.5); Lymphocytes % 21.4 % (10-50); Mean Corpuscular HGB Conc 32.4 g/dL (31.8-35.4); Mean Corpuscular Hemoglobin 31.2 pg (27.0-31.2); Mean Corpuscular Volume 96.2 fl (81-99); Mean Platelet Volume 9.3 fl (7.4-10.4); Monocytes # 0.4 K/mm3 (0.1-1.0); Monocytes % 6.8 % (1.7-9.3); Neutrophils # 4.2 K/mm3 (1.8-7.8); Neutrophils % 69.7 % (37.0-80.0); Platelet Count 215 K/mm3 (142-424); Red Blood Count 4.05 M/mm3 (4.20-5.40); Red Cell Distribution Width 13.9 % (11.5-17.5); White Blood Count 6.1 K/mm3 (4.8-10.8)
[2023-06-08 06:44] LABS: Anion Gap 5.3 mEq/L (5-15); Blood Urea Nitrogen 20 mg/dl (7-17); Calcium 7.4 mg/dl (8.4-10.2); Carbon Dioxide 29 mmol/L (22.0-30.0); Chloride 105 mmol/L (98-107); Creatinine Clearance Estimated 75 mL/min (50-200); Estimated Glomerular Filt Rate 57 ml/min (>60); GFR (African American) 68 ML/MIN (>60); Glucose 102 mg/dl (74-100); Potassium 3.3 mmoL/L (3.5-5.1); Sodium 136 mmol/L (136-145)
[2023-06-08 06:52] LABS: Hemoglobin 12.6 g/dL (12.2-16.2)
[2023-06-08 09:00] VITALS: BP 158/87; PULSE 86; RESP 17; TEMP 36.9; O2SAT 94
[2023-06-08] MEDS: ASPIRIN 81MG CHEWABLE TABLET 81 MG PO (09:19)
[2023-06-08] MEDS: LEVOTHYROXINE 112MCG (0.112MG) TAB 112 MCG PO (09:19)
[2023-06-08] MEDS: SODIUM CHLORIDE 0.9% 10ML VIAL 10 ML IV (09:19)
[2023-06-08] MEDS: PANTOPRAZOLE 40MG VIAL 40 MG IV (09:19)
[2023-06-08] MEDS: LISINOPRIL 10MG TABLET 10 MG PO (09:19)
[2023-06-08 12:00] VITALS: BP 136/85; PULSE 84; RESP 16; TEMP 36.2; O2SAT 97
--- NOTE | 2023-06-08 15:45 | PC.NURSE ---
I/V D/C'd at this time
--- NOTE | 2023-06-08 15:57 | P.DS_ITS ---
General Admission date:: 06/07/23 Discharge date: 06/08/23 HPI HPI HPI: Patient is a 58-year-old female with past medical history of hypertension hyperlipidemia TIA GERD who presents to the hospital due to nausea and vomiting. According to patient she also has diarrhea, he started feeling bad since this morning, she has not been able to hold down food. Her vomiting is nonbloody, she has not noticed any blood in her stool. She denies previous similar symptoms. Denied fever chills. Hospital Course Hospital Course Hospital Course: Patient is a 58-year-old female with past medical history of hypertension hyperlipidemia TIA GERD who presents to the hospital due to nausea and vomiting. According to patient she also has diarrhea, he started feeling bad since this morning, she has not been able to hold down food. Her vomiting is nonbloody, she has not noticed any blood in her stool. She denies previous similar symptoms. Denied fever chills. Admitted for vomiting, dehydration, concern for pancreatitis. Symptoms improved rapidly. No further emesis with treatment of her nausea. Tolerating advancement in diet by day of discharge. Had at least 1 bowel movement that was formed during admission. Overall feeling better and meeting criteria to discharge home. Problems addressed as follows: Nausea vomiting diarrhea likely secondary to enteritis Acute pancreatitis versus incidental elevation in lipase -CT obtained on admission, no radiographic finding of pancreatitis. Patient did have dilated loops of bowel concerning for enteritis. With bowel rest, symptoms improved. Tolerated and responded well to IV fluids. Antiemetics helped and nausea. Leukocytosis concerning for reactive. White cell count improved to 6.1 by morning of discharge. Diet advanced without further nausea or emesis. Had 1 bowel movement that was formed. Overall feeling better, denies significant abdominal pain or nausea. Patient medically stable for discharge home to continue to convalesce. Advance to regular diet as tolerated. Recommend follow-up with PCP in the next 1 to 2 weeks for further evaluation. Resume home regimen at discharge. Patient's states she has Zofran at home, no prescription sent at discharge. Kidney function normal with creatinine of 1.0 and BUN of 20. Hx of malabsorption -held cholestyramine during admission, resume at discharge Total time spent on discharge 32 minutes in counseling, documentation, chart review, and direct care with patient. Exam Data for Last 24 hours Vital signs and Labs for Last 24 Hours: Temp Pulse Resp BP Pulse Ox O2 Del Method 98.4 F 86 17 158/87 H 94 L Room Air 06/08/23 09:00 06/08/23 09:00 06/08/23 09:00 06/08/23 09:00 06/08/23 09:00 06/08/23 13:00 Laboratory Results - last 24 hr 06/08/23 05:25: WBC 6.1 D, RBC 4.05 L, Hgb 12.6 D, Hct 39.0, MCV 96.2, MCH 31.2, MCHC 32.4, RDW 13.9, Plt Count 215 D, MPV 9.3, Neut % (Auto) 69.7, Lymph % (Auto) 21.4, [place] % (Auto) 6.8, Eos % (Auto) 1.6, Baso % (Auto) 0.6, Neut # (Auto) 4.2, Lymph # (Auto) 1.3, [place] # (Auto) 0.4, Eos # (Auto) 0.1, Baso # (Auto) 0.0, Sodium 136, Potassium 3.3 L, Chloride 105, Carbon Dioxide 29, Anion Gap 5.3, BUN 20 H, Creatinine 1.00, Estimated Creat Clear 75, Estimated GFR 57 L , Est GFR ( Amer) 68, Glucose 102 H D, Calcium 7.4 L I & O for Last 24 hours: Intake & Output 06/05/23 06/06/23 06/07/23 06/08/23 23:59 23:59 23:59 23:59 Intake Total 480 / 480 Balance 480 / 480 Weight 79.379 kg Constitutional Constitutional: no acute distress, obese and cooperative *Routine HEENT Exam Head: Present normocephalic Eye: Present EOMI and PERRL ENT: Present mucous membranes moist *Routine Neck Exam Neck: Present supple; Absent lymphadenopathy *Routine Respiratory Exam Respiratory: Present CTA bilaterally *Routine Cardiovascular Exam Cardiovascular: Present RRR *Routine Abdominal Exam Abdominal: Present soft, normoactive bowel sounds and tenderness (mild non- focal) *Routine Rectal Exam Patient deferred: visual exam *Routine Exam Patient deferred: external exam *Routine Extremities Exam Extremities: Absent cyanosis, clubbing or edema *Routine Skin Exam Skin: Present warm; Absent rash *Routine Neurological Exam Neurological: Present alert, oriented X3 and moving all extremities; Absent altered mental status Results Data Completed and Pending Labs on day of discharge: Labs from last 24 hours 06/08/23 05:25 WBC 6.1 D RBC 4.05 L Hgb 12.6 D Hct 39.0 MCV 96.2 MCH 31.2 MCHC 32.4 RDW 13.9 Plt Count 215 D MPV 9.3 Neut % (Auto) 69.7 Lymph % (Auto) 21.4 [place] % (Auto) 6.8 Eos % (Auto) 1.6 Baso % (Auto) 0.6 Neut # (Auto) 4.2 Lymph # (Auto) 1.3 [place] # (Auto) 0.4 Eos # (Auto) 0.1 Baso # (Auto) 0.0 Sodium 136 Potassium 3.3 L Chloride 105 Carbon Dioxide 29 Anion Gap 5.3 BUN 20 H Creatinine 1.00 Estimated Creat Clear 75 Estimated GFR 57 L Est GFR ( Amer) 68 Glucose 102 H D Calcium 7.4 L DS: Diagnosis Discharge Diagnosis (1) Acute pancreatitis: Status: Acute Code(s): K85.90 - Acute pancreatitis without necrosis or infection, unspecified (2) Nausea & vomiting: Status: Acute Code(s): R11.2 - Nausea with vomiting, unspecified Meds Home Medications and Allergies Home Medications Medication Instructions Recorded Confirmed Type aspirin 81 mg chewable tablet 81 mg PO DAILY Heart Health 09/25/22 06/07/23 History estradiol 0.05 mg/24 hr weekly 1 patch transdermal WEEKLY hormone 09/25/22 06/07/23 History transdermal patch replacement meloxicam 15 mg tablet 15 mg PO DAILY Pain #90 tabs 09/25/22 06/07/23 Rx lansoprazole 30 mg capsule,delayed 30 mg PO DAILY Acid Reflux 06/04/23 06/07/23 History release mupirocin 2 % topical ointment 1 applic topical BID infected loop 06/04/23 06/07/23 Rx recorder incision #15 grams cholestyramine (with sugar) 4 gram 4 g PO BID 06/07/23 06/07/23 History powder for susp in a packet cyclobenzaprine 10 mg tablet 10 mg PO TIDP PRN muscle spasm 06/07/23 06/07/23 History levothyroxine 112 mcg tablet 112 mcg PO DAILY Thyroid 06/07/23 06/07/23 History lisinopril 10 mg tablet 10 mg PO DAILY High Blood Pressure 06/07/23 06/07/23 History New Prescriptions to Start Prescriptions: Allergies Allergy/AdvReac Type Severity Reaction Status Date / Time [id number] Reductase Allergy Severe Muscle Pain Verified 06/07/23 15:32 Inhibitor Sulfa (Sulfonamide Allergy Intermediate I-HIVES Verified 06/07/23 15:32 Antibiotics) [SULFA (SULFONAMIDE ANTIBIOTICS)] Discharge Plan Disposition Patient Disposition: Home, Self-Care Condition: Good Follow up Plan Follow up with: Ashtyn Albarado APRN [Primary Care Provider] - Enter time for follow up Prescriptions/Medication Reconciliation: Continued lansoprazole 30 mg capsule,delayed release(DR/EC) 30 mg PO DAILY mupirocin 2 % ointment 1 applic topical BID Qty: 15 0RF aspirin 81 mg tablet,chewable 81 mg PO DAILY estradiol 0.05 mg/24 hr patch weekly 1 patch TRANSDERMA WEEKLY cyclobenzaprine 10 mg tablet 10 mg PO TIDP PRN (Reason: muscle spasm) lisinopril 10 mg tablet 10 mg PO DAILY levothyroxine 112 mcg tablet 112 mcg PO DAILY cholestyramine (with sugar) 4 gram powder in packet 4 g PO BID Rx Instructions: administer w/meal; avoid other meds within 1hr before or 4-6hr after dose Held meloxicam 15 mg tablet 15 mg PO DAILY Qty: 90 3RF Hold Instructions: for 3 days pending improvement in GI symptoms Discontinued methylprednisolone [Medrol (Cristofer)] 4 mg tablets,dose pack 4 mg PO DIRECTED Problem Reconciliation Problems Reviewed?: Yes Patient Discharge Instructions ACTIVITY: Continue current activity DIET: continue same diet Patient Instructions: DI for Enteritis Providers Primary Care Provider: Ashtyn Albarado Admit Provider: Bill Hall Attending Provider: Bill Hall
--- NOTE | 2023-06-08 16:00 | PC.NURSE ---
D/C instructions provided at this time
== END 2023-06-08 16:10 | disposition home or self-care (01) ==
LOC: ER 14:10 → 2ND 14:31 → OB 14:42
PROVIDERS: Admitting Provider Internal Medicine; Emergency Provider Emergency Medicine; PCP Nurse Practitioner Family; Visit Provider Internal Medicine
DX: K85.90 Acute pancreatitis without necrosis or infection, unspecified (principal); Z86.73 Personal history of transient ischemic attack (TIA), and cerebral infarction without residual deficits; E03.9 Hypothyroidism, unspecified; I10 Essential (primary) hypertension; E78.5 Hyperlipidemia, unspecified; K21.9 Gastro-esophageal reflux disease without esophagitis; K52.9 Noninfective gastroenteritis and colitis, unspecified
CPT/HCPCS: 36415; 74177; 80048; 80053; 81001; 83690; 85007; 85025; 87045; 99285; G0378; Q9967

== ENCOUNTER 2023-06-16 07:26 | Outpatient (CLI) | payer OTHER, SELFPAY ==
[2023-06-16 09:25] LABS: Chol/HDL Ratio 3.7 (1-3.5); Cholesterol 185 mg/dl (140-200); HDL Cholesterol 50 mg/dl (40-60); Triglycerides 83 mg/dl (30-150); VLDL Cholesterol 17 mg/dL (0-40)
[2023-06-16 09:36] LABS: Direct LDL Cholesterol 92.72 mg/dL (100-129)
[2023-06-16 09:56] LABS: Thyroid Stimulating Hormone 6.87 uIU/mL (0.465-4.68)
== END 2023-06-16 23:59 ==
LOC: LAB 07:27
PROVIDERS: PCP Nurse Practitioner Family; Visit Provider Nurse Practitioner Family
DX: E03.9 Hypothyroidism, unspecified (principal); E78.2 Mixed hyperlipidemia
CPT/HCPCS: 36415; 80061; 84439; 84443

== ENCOUNTER 2023-06-25 09:13 | Outpatient (CLI) | payer OTHER, SELFPAY ==
--- NOTE | 2023-06-25 09:14 | US_ITS ---
FINAL REPORT TECHNIQUE: Sonographic images of the thyroid were obtained. CLINICAL HISTORY: hypothyroid FINDINGS: THYROID ULTRASOUND The thyroid gland is small measuring 3.3 x 1.0 x 0.8 on the right and 2.5 x 1.1 x 0.8 on the left. There is heterogeneous echogenicity. No well-defined mass or nodule is identified. IMPRESSION: Small, heterogeneous thyroid gland with no definite mass or nodule. Reviewed, Interpreted and Dictated by Chon Kwan III, MD Transcribed by Nanda Benjamin Authenticated and [facility]
== END 2023-06-25 23:59 ==
LOC: RAD 09:14
PROVIDERS: PCP Nurse Practitioner Family; Visit Provider Nurse Practitioner Family
DX: E03.9 Hypothyroidism, unspecified (principal)
CPT/HCPCS: 76536

== ENCOUNTER 2023-07-24 13:10 | Outpatient (CLI) | payer OTHER, SELFPAY ==
[2023-07-24 14:45] LABS: Free T4 (Free Thyroxine) 1.22 ng/dl (0.78-2.19)
[2023-07-24 14:56] LABS: Thyroid Stimulating Hormone 0.64 uIU/mL (0.465-4.68)
== END 2023-07-24 23:59 | disposition home or self-care (01) ==
LOC: LAB 13:11
PROVIDERS: PCP Nurse Practitioner Family; Visit Provider Nurse Practitioner Family
DX: E03.9 Hypothyroidism, unspecified (principal)
CPT/HCPCS: 36415; 84439; 84443

== ENCOUNTER 2023-10-30 09:55 | Emergency (ER) | payer OTHER, SELFPAY ==
--- NOTE | 2023-10-30 10:13 | ED_ITS ---
Discharge Plan Disposition Patient Disposition: Home, Self-Care Condition: Good Prescriptions Prescriptions: New phenazopyridine [Pyridium] 200 mg tablet 200 mg PO Q8H 2 Days Qty: 6 0RF nitrofurantoin monohyd/m-cryst [Macrobid] 100 mg Capsule 100 mg PO BID Qty: 10 0RF Rx Instructions: must administer with a meal/food No Action aspirin 81 mg tablet,chewable 81 mg PO DAILY levothyroxine 125 mcg tablet 125 mcg PO QAM Qty: 30 11RF lisinopril 10 mg tablet 10 mg PO DAILY Qty: 30 11RF lansoprazole 30 mg capsule,delayed release(DR/EC) 30 mg PO DAILY Qty: 30 11RF mupirocin 2 % ointment 1 applic topical BID PRN (Reason: infected loop recorder incision) naproxen sodium [Aleve] 220 mg capsule 220 mg PO Q8H PRN (Reason: pain) Qty: 90 0RF estradiol 0.05 mg/24 hr patch weekly 1 patch TRANSDERMA WEEKLY Qty: 4 11RF cholestyramine (with sugar) 4 gram powder in packet 4 g PO .COMPLEX Rx Instructions: 4 grams orally every other day; administer w/meal; avoid other meds within 1hr before or 4-6hr after dose Referrals Follow up/Referrals: Ashtyn Albarado APRN [Primary Care Provider] - See instructions Activity Restrictions/Add. Instructions Additional Instructions/Restrictions: Drink plenty of fluids. Take tylenol or ibuprofen for pain or fever. Take the medications as directed. Follow up with your regular doctor. GO TO THE ER FOR ANY WORSENING SYMPTOMS The pyridium will make your urine turn orange, this is an expected side effect. It will stain your clothes if it comes into contact with them. We will culture the urine. That will tell what bacteria is causing your infection and which antibiotics will treat it best. Sometimes the first antibiotic we prescribe turns out to not work against different bacteria. So, make sure you follow up within 3 days if you are not getting better. Clinical Impressions Clinical Impression: UTI (urinary tract infection) Instructions Patient Instructions: Urine Culture, DI for Urinary Tract Infection (UTI), Phenazopyridine, Nitrofurantoin Print Language Print Language: Beninese Discharge ED Provider: Seferino Brar [facility] HPI General Stated complaint: blood in urine, urgency Time Seen by Provider: 10/30/23 10:13 Related Data Home Medications ?Medication ?Instructions ?Recorded ?Confirmed aspirin 81 mg chewable tablet 81 mg PO DAILY Heart Health 09/25/22 10/15/23 cholestyramine (with sugar) 4 gram 4 g PO .COMPLEX 10/15/23 10/15/23 powder for susp in a packet mupirocin 2 % topical ointment 1 applic topical BID PRN infected 10/15/23 loop recorder incision Previous Rx's ?Medication ?Instructions ?Recorded lansoprazole 30 mg capsule,delayed 30 mg PO DAILY Acid Reflux #30 caps 09/17/23 release levothyroxine 125 mcg tablet 125 mcg PO QAM #30 tabs 09/17/23 lisinopril 10 mg tablet 10 mg PO DAILY High Blood Pressure 09/17/23 #30 tabs estradiol 0.05 mg/24 hr weekly 1 patch transdermal WEEKLY hormone 10/15/23 transdermal patch replacement #4 ea naproxen sodium 220 mg capsule 220 mg PO Q8H PRN pain #90 caps 10/15/23 (Aleve) nitrofurantoin 100 mg PO BID #10 caps 10/30/23 monohydrate/macrocrystals 100 mg capsule (Macrobid) phenazopyridine 200 mg tablet 200 mg PO Q8H 2 days #6 tabs 10/30/23 (Pyridium) Allergies Allergy/AdvReac Type Severity Reaction Status Date / Time [id number] Reductase Allergy Severe Muscle Pain Verified 10/15/23 10:25 Inhibitor Sulfa (Sulfonamide Allergy Intermediate I-HIVES Verified 10/15/23 10:25 Antibiotics) [SULFA (SULFONAMIDE ANTIBIOTICS)] [facility] Disclaimer: The information contained in this section may have been updated after the patient was seen, as this information can be updated by other users. Medical History Abdominal pain Arthritis Atypical chest pain Breast cancer screening by mammogram Chest pain COVID-19 COVID-19 Dyspnea Encounter for loop recorder at end of battery life Encounter for screening colonoscopy Repeat colonoscopy 5 to 10 years Encounter for screening for osteoporosis History of syncope Hypertensive emergency Malignant essential hypertension Myalgia Nausea Nausea & vomiting Nausea and vomiting Pain of left heel Palpitations Right foot pain RUQ pain Sinusitis Thyroid condition TIA (transient ischemic attack) Surgical History H/O total hysterectomy benign Cervix in place H/O tubal ligation History of colonoscopy Family History Other Cancer Coronary artery disease Hypertension Social History Smoking Status: Never smoker second hand exposure: No alcohol intake: current alcohol intake frequency: a few times a month counseling provided: none substance use type: denies use current occupational status: employed Travel in the last 8 weeks: None household members: spouse housing: house lives independently: Yes marital status: number of children: 2 number of grandchildren: 3 senior living: No ROS Obtained: Yes All systems reviewed & no additional complaints except as documented Constitutional Constitutional: Reports system reviewed and no additional complaints, except as documented, Denies chills and Denies fever(s) Eyes Eyes: Denies eye discharge ENT Ears, Nose, Mouth, and Throat: Denies dysphagia, Denies sore throat and Denies throat swelling Cardiovascular Cardiovascular: Denies chest pain and Denies dyspnea Respiratory Respiratory: Denies chest congestion, Denies cough and Denies dyspnea Gastrointestinal Gastrointestingal: Denies abdominal pain, constipation, diarrhea, dysphagia, nausea or vomiting Genitourinary Female Genitourinary: Reports as per HPI, Reports dysuria, Reports urinary frequency, Denies urinary incontinence, Reports urinary hesitancy and Reports urinary urgency Musculoskeletal Musculoskeletal: Denies arthralgias and Reports back pain Integumentary/Breasts Skin/Breast: Denies rash Neurologic Neurologic: Denies paresthesias Allergic/Immunologic Allergic/Immunologic: Denies throat swelling Physical Exam General General appearance: alert and in no apparent distress Head Head exam: atraumatic, normocephalic and normal inspection Eye Eye exam: Present normal appearance, PERRL and EOMI ENT ENT exam: Present normal exam, normal oropharynx, mucous membranes moist, TM's normal bilaterally and normal external ear exam Neck Neck exam: Present normal inspection, full ROM and trachea midline; Absent meningismus or lymphadenopathy Chest Chest inspection: Present normal inspection and symmetric chest wall rise; Absent tenderness Respiratory Respiratory exam: Present normal lung sounds bilaterally; Absent respiratory distress Cardiovascular Cardiovascular exam: Present regular rate and normal rhythm; Absent JVD Abdominal Exam Abdominal exam: Present soft and normal bowel sounds; Absent distention, tenderness or guarding Extremities Exam Extremities exam: Present normal inspection, full ROM and normal capillary refill; Absent calf tenderness Back Exam Back exam: Present normal inspection; Absent tenderness Neurological Exam Neurological exam: Present alert and oriented X3 Psychiatric Psychiatric exam: Present normal affect and normal mood Skin Skin exam: Present warm, dry, intact and normal color Lymphatic Lymphatic Findings: no adenopathy Medical Decision Making Medical Records Medical records reviewed: No I reviewed the patient's medical records. Ghanshyam Inquiry Pt receiving controlled substance: No Lab Data Lab results reviewed: Yes I reviewed the patient's lab results.
[2023-10-30 10:20] VITALS: BP 137/81; PULSE 92; RESP 16; TEMP 37.2; O2SAT 98; BMI 30.2
[2023-10-30 10:30] LABS: Apearance,Urine Slightly Cloudy (Clear); Bilirubin,Urine Negative (Negative); Blood, Urine 4+ (Negative); Color,Urine Red (Yellow); Glucose,Urine (UA) Negative (Negative); Ketones,Urine Negative (Negative); PH,Urine 6.5 (5.0-8.5); Protein,Urine 1+ (Negative); UTC Leukocyte Esterase,Urine 1+ (Negative); UTC Nitrate,Urine Negative (Negative); Urobilinogen,Urine 0.2 EU/dl (0.2)
[2023-10-30 10:43] VITALS: BP 137/81; PULSE 92; RESP 16; TEMP 37.2; O2SAT 98
--- NOTE | 2023-11-01 09:25 | PC.NURSE ---
REVIEWED URINE CULTURE WITH Tessa LOWE APRN. NO CHANGE NEEDED AT THIS TIME
== END 2023-10-30 10:43 | disposition home or self-care (01) ==
PROVIDERS: Emergency Provider Nurse Practitioner Family; PCP Nurse Practitioner Family
DX: N39.0 Urinary tract infection, site not specified (principal); B96.29 Other Escherichia coli [E. coli] as the cause of diseases classified elsewhere; R31.9 Hematuria, unspecified; R39.15 Urgency of urination
CPT/HCPCS: 81003; 87086; 87088; 87186; 99212; 99214; G0463

== ENCOUNTER 2023-11-04 13:05 | Outpatient (CLI) | payer OTHER, SELFPAY ==
--- NOTE | 2023-11-04 13:06 | MR_ITS ---
FINAL REPORT CLINICAL HISTORY: femur pain, pain mainly around hips COMPARISON: None FINDINGS: Multiplanar MR imaging of the right thigh/femur was performed without contrast. There is mild degenerative change of the knee. There is no evidence of fracture or bone marrow edema. No bony mass is identified. Musculature is intact. No soft tissue mass. There is fluid adjacent to the greater trochanter which may represent trochanteric bursitis. IMPRESSION: Possible trochanteric bursitis. Reviewed, Interpreted and Dictated by Chon Kwan III, MD Transcribed by More Villalpando Authenticated and [facility]
--- NOTE | 2023-11-04 13:06 | MR_ITS ---
FINAL REPORT CLINICAL HISTORY: RUE radiculopathy COMPARISON: None FINDINGS: Multiplanar MR imaging of the cervical spine was performed without contrast. There is motion artifact on many of the images decreasing sensitivity of this exam. On the sagittal T2-weighted images, disc degeneration is seen throughout. There is no evidence of fracture. The vertebral alignment is normal. The cervical spinal cord has an unremarkable appearance without evidence of mass, edema or syrinx. The cervicomedullary junction is normal. C2-3: There is no significant canal stenosis or neural foraminal narrowing. C3-4: Facet arthropathy. Mild left neural foraminal narrowing. C4-5: Small disc osteophyte complex. Facet arthropathy. No significant canal stenosis or neural foraminal narrowing. C5-6: Disc osteophyte complex. Severe right and mild left neural foraminal narrowing. Mild central canal stenosis with AP diameter of the thecal sac of 9 mm. C6-7: Small disc osteophyte complex. Moderate bilateral neural foraminal narrowing. C7-T1: There is no significant canal stenosis or neural foraminal narrowing. IMPRESSION: Multilevel degenerative disc disease as described. Mild central canal stenosis at C5-6. Reviewed, Interpreted and Dictated by Chon Kwan III, MD Transcribed by More Villalpando Authenticated and [facility]
--- NOTE | 2023-11-04 13:06 | MR_ITS ---
FINAL REPORT CLINICAL HISTORY: femur pain, pain mainly around hips COMPARISON: None FINDINGS: Multiplanar MR imaging of the left thigh/femur was performed without contrast. There is mild degenerative change of the knee. There is no evidence of fracture or bone marrow edema. No bony mass is identified. Musculature is intact. No soft tissue mass. There are partial tears of the distal gluteus medius and minimus tendons with adjacent edema. IMPRESSION: Partial tears of the distal gluteus medius and minimus tendons with adjacent edema. No acute bony abnormality. Reviewed, Interpreted and Dictated by Chon Kwan III, MD Transcribed by More Villalpando Authenticated and [facility]
== END 2023-11-04 23:59 | disposition home or self-care (01) ==
LOC: RAD 13:06
PROVIDERS: PCP Nurse Practitioner Family; Visit Provider Nurse Practitioner Family
DX: M25.511 Pain in right shoulder (principal); M79.2 Neuralgia and neuritis, unspecified; M79.651 Pain in right thigh; M79.652 Pain in left thigh; M89.8X5 Other specified disorders of bone, thigh
CPT/HCPCS: 72141; 73718

== ENCOUNTER 2023-12-14 09:15 | Outpatient (CLI) | payer OTHER, SELFPAY ==
[2023-12-14 09:20] LABS: Microscopic, Urine URINE MICROSCOPIC (MICROSCOPIC)
[2023-12-14 09:37] LABS: Appearance,Urine CLEAR (Clear); Bilirubin,Urine Negative (Negative); Blood, Urine Negative (Negative); Color,Urine YELLOW (Yellow); Glucose,Urine (UA) Negative (Negative); Ketones,Urine Negative (Negative); Leukocyte Esterase,Urine Negative (Negative); Nitrate,Urine Negative (Negative); Protein,Urine Negative (Negative); Specific Gravity, Urine 1.025 (1.005-1.030); Urobilinogen,Urine 0.2 EU/dl (0.2)
[2023-12-14 09:41] LABS: Basophils # 0.1 K/mm3 (0-0.2); Basophils % 0.9 % (0.1-2.0); Eosinophils # 0.2 K/mm3 (0.0-0.4); Eosinophils % 1.9 % (0.1-12.0); Hematocrit 45.9 % (37.0-47.0); Hemoglobin 14.6 g/dL (12.2-16.2); Lymphocytes # 2.6 K/mm3 (0.7-4.5); Lymphocytes % 23.9 % (10-50); Mean Corpuscular HGB Conc 31.8 g/dL (31.8-35.4); Mean Corpuscular Volume 97.6 fl (81-99); Mean Platelet Volume 9.1 fl (7.4-10.4); Monocytes # 0.6 K/mm3 (0.1-1.0); Monocytes % 5.3 % (1.7-9.3); Neutrophils # 7.3 K/mm3 (1.8-7.8); Platelet Count 317 K/mm3 (142-424); Red Blood Count 4.71 M/mm3 (4.20-5.40); Red Cell Distribution Width 13.6 % (11.5-17.5); White Blood Count 10.8 K/mm3 (4.8-10.8)
[2023-12-14 09:50] LABS: WBC,Urine Occasional #/hpf (0-3)
[2023-12-14 09:51] LABS: Bacteria,Urine 1+ /lpf
[2023-12-14 10:58] LABS: Albumin Level 4.3 g/dl (3.5-5.0); Chloride 106 mmol/L (98-107); Sodium 137 mmol/L (136-145)
[2023-12-14 10:59] LABS: Potassium 4.5 mmoL/L (3.5-5.1)
[2023-12-14 11:01] LABS: Alanine Aminotransferase 25 U/L (12-78); Albumin/Globulin Ratio 1.7 (1.1-1.8); Anion Gap 8.5 mEq/L (5-15); Aspartate Amino Transferase 23 U/L (14-36); Blood Urea Nitrogen 21 mg/dl (7-17); Carbon Dioxide 27 mmol/L (22.0-30.0); Estimated Glomerular Filt Rate 57 ml/min (>60); GFR (African American) 68 ML/MIN (>60); Globulin 2.5 g/dL (1.3-3.2); Total Protein,Serum 6.8 g/dl (6.3-8.2)
[2023-12-14 11:02] LABS: Alkaline Phosphatase 73 U/L (38-126); Bilirubin,Total 0.7 mg/dl (0.2-1.3); Calcium 9.2 mg/dl (8.4-10.2); Chol/HDL Ratio 3.2 (1-3.5); Cholesterol 206 mg/dl (140-200); Glucose 110 mg/dl (74-100); HDL Cholesterol 65 mg/dl (40-60); Triglycerides 88 mg/dl (30-150); VLDL Cholesterol 18 mg/dL (0-40)
[2023-12-14 11:59] LABS: Direct LDL Cholesterol 115.96 mg/dL (100-129); Free T4 (Free Thyroxine) 1.12 ng/dl (0.78-2.19)
[2023-12-14 12:00] LABS: 25-OH Vitamin D, Total 38.3 ng/mL (30-100)
[2023-12-14 12:21] LABS: Thyroid Stimulating Hormone 2.71 uIU/mL (0.465-4.68)
[2023-12-14 12:39] LABS: Vitamin B12 322 pg/mL (239-931)
[2023-12-14 12:51] LABS: Total Protein,Urine Random < 5.0 mg/dL (0.0-12.0)
[2023-12-14 17:02] LABS: Hemoglobin A1C 5.9 % (4.0-6.0)
== END 2023-12-14 23:59 | disposition home or self-care (01) ==
LOC: LAB 09:16
PROVIDERS: PCP Nurse Practitioner Family; Visit Provider Nurse Practitioner Family
DX: E03.9 Hypothyroidism, unspecified (principal); R53.83 Other fatigue; E78.2 Mixed hyperlipidemia; Z13.1 Encounter for screening for diabetes mellitus; I10 Essential (primary) hypertension
CPT/HCPCS: 36415; 80050; 80053; 80061; 81001; 82306; 82607; 83036; 84156; 84439; 84443; 85025; 87086

== ENCOUNTER 2024-01-05 09:49 | Outpatient (CLI) | payer OTHER, SELFPAY ==
--- NOTE | 2024-01-05 09:49 | MM_ITS ---
PROCEDURE INFORMATION: Exam: MG Bilateral Screening 3D Mammography Exam date and time: 01/05/2024 9:37 AM Age: 58 years old Clinical indication: Screening examination TECHNIQUE: Imaging protocol: Bilateral Screening tomosynthesis and 2D mammography including computer-aided detection (CAD) when performed. COMPARISON: 1. MG MM DIG SCREENING MAMM BI W/CAD 01/01/2023 8:06 AM 2. MG MM DIG SCREENING MAMM BI W/CAD 01/22/2022 3:28 PM FINDINGS: MAMMOGRAPHY: Breast composition: There are scattered areas of fibroglandular density. Mass: None. Architectural distortion: None. Calcifications: No suspicious calcifications. Asymmetric density: None. Skin thickening: None. Axillary adenopathy: None. IMPRESSION: No mammographic evidence of malignancy. Annual screening is recommended unless otherwise clinically indicated. ASSESSMENT: BI-RADS Category 1: Negative.
== END 2024-01-05 23:59 | disposition home or self-care (01) ==
LOC: RAD 09:49
PROVIDERS: PCP Nurse Practitioner Family; Visit Provider Nurse Practitioner Family
DX: Z12.31 Encounter for screening mammogram for malignant neoplasm of breast (principal)
CPT/HCPCS: 77063; 77067

== ENCOUNTER 2024-01-08 10:00 | Outpatient (RCR) | payer OTHER, SELFPAY | END 2024-01-08 23:59 | disposition home or self-care (01) | LOC: PT 10:00 | PROVIDERS: Visit Provider Orthopaedic Surgery | DX: M70.61 Trochanteric bursitis, right hip (principal); M70.62 Trochanteric bursitis, left hip | CPT/HCPCS: 97010; 97014; 97110; 97112; 97163; 97530; G0283 ==

== ENCOUNTER 2024-04-25 14:26 | Outpatient (CLI) | payer OTHER, SELFPAY ==
[2024-04-25 12:12] LABS: Coronavirus 19, PCR Not Detected (NotDetected); Human Rhinovirus Not Detected (NotDetected); Influenza B, PCR Not Detected (NotDetected); Respiratory Syncytial Virus Not Detected (NotDetected)
[2024-04-26 02:13] LABS: Influenza A, PCR Detected (NotDetected)
== END 2024-04-25 23:59 | disposition home or self-care (01) ==
LOC: LAB.DROPOF 14:26
PROVIDERS: PCP Nurse Practitioner Family; Visit Provider Nurse Practitioner Family
DX: R50.9 Fever, unspecified (principal); R53.83 Other fatigue
CPT/HCPCS: 87070; 87631

== ENCOUNTER 2024-05-27 13:49 | Outpatient (CLI) | payer OTHER, SELFPAY ==
[2024-05-27 13:54] LABS: Microscopic, Urine URINE MICROSCOPIC (MICROSCOPIC)
[2024-05-27 14:12] LABS: Basophils # 0.1 K/mm3 (0-0.2); Basophils % 0.6 % (0.1-2.0); Eosinophils # 0.2 K/mm3 (0.0-0.4); Eosinophils % 1.6 % (0.1-12.0); Hematocrit 45.2 % (37.0-47.0); Hemoglobin 14.9 g/dL (12.2-16.2); Lymphocytes # 2.6 K/mm3 (0.7-4.5); Lymphocytes % 23.7 % (10-50); Mean Corpuscular Hemoglobin 30.3 pg (27.0-31.2); Mean Corpuscular Volume 92.1 fl (81-99); Mean Platelet Volume 10.4 fl (7.4-10.4); Monocytes # 1.1 K/mm3 (0.1-1.0); Monocytes % 9.8 % (1.7-9.3); Neutrophils # 7.1 K/mm3 (1.8-7.8); Neutrophils % 63.4 % (37.0-80.0); Platelet Count 346 K/mm3 (142-424); Red Blood Count 4.91 M/mm3 (4.20-5.40); White Blood Count 11.1 K/mm3 (4.8-10.8)
[2024-05-27 14:29] LABS: Appearance,Urine SL CLOUDY (Clear); Bilirubin,Urine Negative (Negative); Blood, Urine Negative (Negative); Color,Urine YELLOW (Yellow); Glucose,Urine (UA) Negative (Negative); Ketones,Urine Negative (Negative); Leukocyte Esterase,Urine Negative (Negative); Nitrate,Urine Negative (Negative); Protein,Urine Negative (Negative); Urobilinogen,Urine 0.2 EU/dl (0.2)
[2024-05-27 14:40] LABS: Total Protein,Urine Random < 5.0 mg/dL (0.0-12.0)
[2024-05-27 15:05] LABS: Albumin Level 4.7 g/dl (3.5-5.0); Chloride 99 mmol/L (98-107); Sodium 139 mmol/L (136-145)
[2024-05-27 15:08] LABS: Alanine Aminotransferase 32 U/L (12-78); Alkaline Phosphatase 84 U/L (38-126); Aspartate Amino Transferase 25 U/L (14-36); Bilirubin,Total 0.3 mg/dl (0.2-1.3); Blood Urea Nitrogen 19 mg/dl (7-17); Carbon Dioxide 31 mmol/L (22.0-30.0); Cholesterol 193 mg/dl (140-200); Estimated Glomerular Filt Rate 57 ml/min (>60); GFR (African American) 68 ML/MIN (>60); Globulin 2.4 g/dL (1.3-3.2); Iron 94 ug/dL (37-170); Total Protein,Serum 7.1 g/dl (6.3-8.2); Triglycerides 203 mg/dl (30-150); VLDL Cholesterol 41 mg/dL (0-40)
[2024-05-27 15:09] LABS: Calcium 9.3 mg/dl (8.4-10.2); Glucose 114 mg/dl (74-100); HDL Cholesterol 48 mg/dl (40-60)
[2024-05-27 15:20] LABS: Total Iron Binding Capacity 307 ug/dL (265-497)
[2024-05-27 15:22] LABS: Direct LDL Cholesterol 106.77 mg/dL (100-129)
[2024-05-27 15:26] LABS: Free T4 (Free Thyroxine) 1.79 ng/dl (0.78-2.19)
[2024-05-27 15:41] LABS: Thyroid Stimulating Hormone 0.11 uIU/mL (0.465-4.68)
[2024-05-27 15:45] LABS: Ferritin 88.5 ng/ml (11.1-264)
[2024-05-27 15:55] LABS: Bacteria,Urine 4+ /lpf; Squamous Epithelial Cell,Urine 20-50 #/hpf (0-5)
[2024-05-27 18:01] LABS: Vitamin B12 > 1000 pg/mL (239-931)
[2024-06-01 13:26] LABS: HIV Combo NEGATIVE (Negative)
== END 2024-05-27 23:59 | disposition home or self-care (01) ==
LOC: LAB 13:50
PROVIDERS: PCP Nurse Practitioner Family; Visit Provider Nurse Practitioner Family
DX: E03.9 Hypothyroidism, unspecified (principal); I10 Essential (primary) hypertension; R53.83 Other fatigue; E78.2 Mixed hyperlipidemia; E55.9 Vitamin D deficiency, unspecified; E53.8 Deficiency of other specified B group vitamins; Z78.0 Asymptomatic menopausal state; K21.9 Gastro-esophageal reflux disease without esophagitis; Z13.1 Encounter for screening for diabetes mellitus; Z11.4 Encounter for screening for human immunodeficiency virus [HIV]
CPT/HCPCS: 36415; 80053; 80061; 81001; 82306; 82607; 82728; 83540; 83550; 84156; 84439; 84443; 85025; 86803; 87086; 87389

== ENCOUNTER 2024-06-27 14:17 | Outpatient (CLI) | payer OTHER, SELFPAY ==
[2024-06-27 16:31] LABS: Microscopic, Urine URINE MICROSCOPIC (MICROSCOPIC)
[2024-06-27 17:49] LABS: Appearance,Urine CLEAR (Clear); Bilirubin,Urine Negative (Negative); Blood, Urine Negative (Negative); Color,Urine YELLOW (Yellow); Glucose,Urine (UA) Negative (Negative); Ketones,Urine Negative (Negative); Leukocyte Esterase,Urine Negative (Negative); Nitrate,Urine Negative (Negative); Protein,Urine Negative (Negative); Urobilinogen,Urine 0.2 EU/dl (0.2)
[2024-06-27 20:05] LABS: WBC,Urine Occasional #/hpf (0-3)
[2024-06-27 20:06] LABS: Bacteria,Urine 1+ /lpf
--- OUTSIDE RECORDS SUMMARY | 2024-06-30 21:35 | XMS_ITS | Clinical Summary ---
Author Organization [facility] , [facility] Address [address] [place] [address] Phone Care Team Providers Care Rehab Aide Name Role Phone Alexa POWELL, Sean Unavailable [phone] Ashtyn Albarado APRN Unavailable [phone] Reason for Visit and Chief Complaint The Chief Complaint is: Left hip pain Problems Includes: Problems addressed during this encounter and other active Problems All Visits Onset Date Resolved Date Provider Condition S tatus Joint Pain in the Left Hip 12/04/2023 Henrry Sullivan MD Active Last Documented On 4 2:41PM ; [facility] Plan of Treatment Left hip bursa injection: The risks of the procedure was explained to the patient and verbal consent was obtained. The patient was allowed to stand holding onto the exam table. The skin over the hip bursa region was prepped with Betadine solution. Using a 22-gauge spinal needle directing it at 90? toward the hip bursa, the hip bursa was injected with 80 mg Depo-Medrol and 4cc of 0.25% bupivacaine. Needle was withdrawn and Band-Aid was applied. The patient tolerated the procedure well. - Last Documented On 12/10/2023 6:37PM ; [facility] Pending Tests Order Diagnosis Results Due Ordering P rovider Therapy - Physical Therapy Hip Pain in left hip Henrry Sullivan MD Last Documented On 4 10:00AM ; [facility], [facility] Instructions to patient Lose weight Last Documented On 4 9:19AM ; [facility] Assessments Includes: Assessments from this encounter Findings - Overweight - Last Documented On 12/10/2023 6:37PM ; [facility], [facility] 58 year old female with left greater trochanteric bursitis. We will proceed with a steroid injection to help her symptoms and have her start on a course of physical therapy to strengthen her left hip abductor musculature. She will follow up with us as needed. All questions have been answered. - Last Documented On 12/10/2023 6:37PM ; [facility] Instructions Includes: Instructions from this encounter Instructions to patient Lose weight Last Documented On 4 9:19AM ; [facility] Medical Equipment - Implanted Devices Includes: Current Devices No Medical Equipment Recorded Medications Includes: Medications discussed during this encounter and other current Medications Discontinued / Stopped on this date on 10/30/2023 Nitrofurantoin Monohyd Macro 100 MG Oral Capsule Provider: Diagnosis: Last Documented On 4 9:13AM By Eleni Lua [facility] Phenazopyridine HCl 200 MG Oral Tablet Pr ovider: Diagnosis: Last Documented On 4 9:13AM By Eleni Murillo ; [facility] Naproxen Sodium 220 MG Oral Tablet Pro vider: Ashtyn Albaardo APRN Diagnosis: Last Documented On 4 9:13AM By Eleni Lua [facility] Cholestyramine 4 GM Oral Packet Provider: Ashtyn Albarado APRN Diagnosis: Last Documented On 4 9:13AM By Eleni Lua [facility] Current Medications (continue as prescribed) Meloxicam 7.5 MG Oral Tablet 12/08/2023 Provider: Diagnosis: Last Documented On 4 9:16AM By Eleni Lua [facility] Levothyroxine Sodium 100 MCG Oral Capsule 12/08/2023 Provider: Diagnosis: Last Documented On 4 9:14AM By Eleni Lua [facility], [facility] Adult Aspirin Regimen 81 MG Oral Tablet Delayed Releas e 12/08/2023 Provider: Diagnosis: Last Documented On 4 9:15AM By Eleni Lua [facility] Cholestyramine 4 GM Oral Packet 12/08/2023 Provider: Diagnosis: Last Documented On 4 9:15AM By Eleni Lua [facility] Naproxen 250 MG Oral Tablet 12/08/2023 Provider: Diagnosis: Last Documented On 4 9:15AM By Eleni Murillo ; [facility] Lansoprazole 30 MG Oral Capsule Delayed Release 2023 Provider: Ashtyn Albarado APRN Diagnosis: Last Documented On 4 9:13AM By Eleni Murillo ; [facility] Estradiol 0.05 MG/24HR Transdermal Patch Weekly 2023 Provider: Diagnosis: Last Documented On 4 2:42PM By Deon Esparza ; [facility] Lisinopril 10 MG Oral Tablet 11/18/2023 Provider: Ashtyn Albarado APRN Diagnosis: Last Documented On 4 2:42PM By Deon Esparza ; [facility] Levothyroxine Sodium 125 MCG Oral Tablet 11/13/2023 Provider: Ashtyn Albarado APRN Diagnosis: Last Documented On 4 2:42PM By Deon Esparza ; [facility] Medications Administered Includes: Administered Medications from this encounter No Administered Medications Recorded Vital Signs Includes: Vital Signs from this encounter Vital Name 12/08/2023 09:16A Height (in) 64 Weight (lb) 181.6 Body Mass Index 31.2 Body Surface Area 1.9 Note: ct Last Documented: On 12/08/2023 9:25AM ; [facility] Results Includes: Results discussed during this encounter No Results Recorded For Specified Dates History of Present Illness Includes: History of Present Illness from this encounter HPI Zara Bhandari is a 58 year old female. - Symptoms popping pain better: ice / voltaren / naproxen pain worse: sitting / walking. - Allergy list reviewed - Problem list reviewed - Medication list reviewed - Patient pain level from 1-10: 3 - Yes, previous treatment. - - Review of medications documented Medications used for this condition: 58-year-old female here today for my initial evaluation of her left hip pain. She states that her hip pain started back in August. She does not recall any specific injury to her hip. She describes having lateral-sided hip pain that is worse with side lying and with weight-bearing. She denies any radicular symptoms. She has tried meloxicam, naproxen, and topical diclofenac for her symptoms. She has a history of thyroid disease and TIA (no motor deficits). She is otherwise healthy. She denies any history of heart attack, diabetes, blood clots, DVT, kidney disease, or respiratory dysfunction. She takes aspirin daily and denies current tobacco use. 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 Social History Description Last Updated Alcohol use 12/08/2023 Last Documented On 4 6:37PM ; [facility] Caffeine use 12/08/2023 Last Documented On 4 6:37PM ; [facility] No recent change in diet 12/08/2023 Last Documented On 4 6:37PM ; [facility] Not a current smoker. 12/08/2023 Last Documented On 4 6:37PM ; [facility] Not exercising regularly 12/08/2023 Last Documented On 4 6:37PM ; [facility] Not using drugs 12/08/2023 Last Documented On 4 6:37PM ; [facility] Smoking Status Unknown Procedures and Surgical History Includes: Procedures from this encounter Procedures Code Diagnosis Performing Provider Service Location Service Date DRAIN/INJECT, JOINT/BURSA (LEFT) Trochanteric bursitis, left hip Henrry Sullivan MD [facility] 12/08/2023 Last Documented On 4 6:47AM ; [facility] Inj, Methylprednisolone acetate, 1 mg [id number] Trochanteric bursitis, left hip Henrry Sullivan MD [facility] 12/08/2023 Last Documented On 4 6:47AM ; [facility] X-RAY EXAM OF PELVIS 1-2 VIEWS (LEFT) [id number] Trochanteric bursitis, left hip Henrry Sullivan MD [facility] 12/08/2023 Last Documented On 4 6:47AM ; [facility] an MRI was performed [id number] Last Documented On 4 9:18AM ; [facility] Surgical History Last Updated History of hysterectomy 12/08/2023 Last Documented On 4 6:37PM ; [facility], [facility] Medical History Includes: Medical History addressed during this encounter Description Last Updated History of arthritis 12/08/2023 Last Documented On 4 6:37PM ; [facility], [facility] History of Heartburn / Acid Reflux 12/07 Last Documented On 4 6:37PM ; [facility], [facility] History of Hypertension 12/08/2023 Last Documented On 4 6:37PM ; [facility] History of Sleep Apnea 12/08/2023 Last Documented On 4 6:37PM ; [facility] History of Thyroid Disease 12/08/2023 Last Documented On 4 6:37PM ; [facility] Use of CPAP 12/08/2023 Last Documented On 4 6:37PM ; [facility] Family History Includes: Family History addressed during this encounter Description Last Updated Diabetes mellitus 12/08/2023 Last Documented On 4 6:37PM ; [facility] Family history of cancer 12/08/2023 Last Documented On 4 6:37PM ; [facility] Family history of systemic hypertension 12/08/2023 Last Documented On 4 6:37PM ; [facility] Review of Systems Includes: Review of Systems from this encounter Systemic: Not feeling tired, no recent weight loss, and no recent weight gain. Head: No headache and no sinus pain. Eyes: No vision problems and no Cataracts. Glasses/Contacts. No Glaucoma. Otolaryngeal: No hearing loss and no tinnitus. Cardiovascular: No chest pain or discomfort and no palpitations. Hypertension. No High Cholesterol. Pulmonary: No daytime asthma symptoms and no chronic cough. No wheezing. Gastrointestinal: Heartburn. No abdominal pain. No Indigestion, no Peptic Ulcer, no GI Stomach Bleed, and no Ulcers. Acid Reflux. Endocrine: No hot flashes, no muscle weakness, and no Diabetes. Hypothyroid. No Hyperthyroid. Hematologic: No easy bleeding, no tendency for easy bruising, and no Anemia. Musculoskeletal: Arthritis and lower back pain. No soft tissue swelling. Pain localized to one or more joints. Neurological: No dizziness and no convulsions. Numbness. Psychological: No anxiety, no emotional lability, no depression, and no insomnia. Not crying for no reason. Skin: No dry skin. No Ulcers, no Scars, and no rash. Allergic and Immunologic: No complaint of seasonal allergic reaction. Mental Status Includes: Mental Status from this encounter Description No anxiety Functional Status Includes: Functional Status from this encounter No Functional Status Recorded Physical Exam Includes: Physical Exam from this encounter Allergies Includes: Active Allergies Substance Type Reaction Onset Date Resolved Date Statu s Sulfa Antibiotics Allergy 12/08/2023 A ctive Last Documented On 4 9:13AM ; [facility], [facility] Statins Allergy 12/08/2023 Active Last Documented On 4 9:13AM ; [facility] Encounters Encounter Provider Location Date Check-In Time Check-Out Time Diagnosis Physician Specified Henrry Sullivan MD [facility] 12/08/19 24 9:12AM 10:00AM Overweight Insurance Includes: Active Insurance Policies Plan Name Member ID Group # Subscriber Relationship Effect himanshu Dates 1 - [facility] [id number] Zara Bhandari Self Clinical Notes Includes: Clinical Notes from this encounter * Progress note Date Encounter Last Documented by 12/08/2023 Physician Specified Last georgette santoro on 12/10/2023; 6:37 PM, Henrry Sullivan MD; [facility] Active Problems & Conditions - Joint Pain in the Left Hip Chief Complaint The Chief Complaint is: Left hip pain. Referred Here Referred by self. History of Present Illness Zara Bhandari is a 58 year old female. - Symptoms popping pain better: ice / voltaren / naproxen pain worse: sitting / walking. - Allergy list reviewed - Problem list reviewed - Medication list reviewed - Patient pain level from 1-10: 3 - Yes, previous treatment. - - Review of medications documented Medications used for this condition: 58-year-old female here today for my initial evaluation of her left hip pain. She states that her hip pain started back in August. She does not recall any specific injury to her hip. She describes having lateral-sided hip pain that is worse with side lying and with weight-bearing. She denies any radicular symptoms. She has tried meloxicam, naproxen, and topical diclofenac for her symptoms. She has a history of thyroid disease and TIA (no motor deficits). She is otherwise healthy. She denies any history of heart attack, diabetes, blood clots, DVT, kidney disease, or respiratory dysfunction. She takes aspirin daily and denies current tobacco use. 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 Current Medication - Adult Aspirin Regimen 81 MG Oral Tablet Delayed Release 0 days, 0 refills - Cholestyramine 4 GM Oral Packet 0 days, 0 refills - Estradiol 0.05 MG/24HR Transdermal Patch Weekly 28 days, 0 refills - Lansoprazole 30 MG Oral Capsule Delayed Release 30 days, 0 refills - Levothyroxine Sodium 100 MCG Oral Capsule 0 days, 0 refills - Levothyroxine Sodium 125 MCG Oral Tablet 30 days, 0 refills - Lisinopril 10 MG Oral Tablet 30 days, 0 refills - Meloxicam 7.5 MG Oral Tablet 0 days, 0 refills - Naproxen 250 MG Oral Tablet 0 days, 0 refills Past Medical/Surgical History Reported: Use of CPAP. Diagnoses: Sleep Apnea Heartburn / Acid Reflux Thyroid Disease Hypertension. Arthritis Surgical: - Hysterectomy Social History Not a current smoker. Current diet: No recent change in diet. Caffeine use: Caffeine use. Alcohol: Alcohol use. Drug Use: Not using drugs. Habits: Not exercising regularly. Allergies - Statins - Sulfa Antibiotics Family History Cancer Diabetes mellitus Systemic hypertension Review Of Systems Systemic: Not feeling tired, no recent weight loss, and no recent weight gain. Head: No headache and no sinus pain. Eyes: No vision problems and no Cataracts. Glasses/Contacts. No Glaucoma. Otolaryngeal: No hearing loss and no tinnitus. Cardiovascular: No chest pain or discomfort and no palpitations. Hypertension. No High Cholesterol. Pulmonary: No daytime asthma symptoms and no chronic cough. No wheezing. Gastrointestinal: Heartburn. No abdominal pain. No Indigestion, no Peptic Ulcer, no GI Stomach Bleed, and no Ulcers. Acid Reflux. Endocrine: No hot flashes, no muscle weakness, and no Diabetes. Hypothyroid. No Hyperthyroid. Hematologic: No easy bleeding, no tendency for easy bruising, and no Anemia. Musculoskeletal: Arthritis and lower back pain. No soft tissue swelling. Pain localized to one or more joints. Neurological: No dizziness and no convulsions. Numbness. Psychological: No anxiety, no emotional lability, no depression, and no insomnia. Not crying for no reason. Skin: No dry skin. No Ulcers, no Scars, and no rash. Allergic and Immunologic: No complaint of seasonal allergic reaction. Physical Findings - Vitals taken 12/08/2023 09:[address] Height 64 in Weight 181 lbs 9.6 oz Body Mass Index 31.2 kg/m2 Body Surface Area 1.9 m2 Left hip: Patient walks with a slight antalgic gait Hip range of motion is flexion 100- internal rotation to 15- external rotation to 50- Tenderness to palpation of greater trochanter, none over the ASIS Pain with active hip abduction 3/5 hip abduction strength patient has negative Nadine test negative Stinchfield and negative internal rotation flexion test No Tenderness to palpation about abdomen or pubic symphysis and no signs of hernia Anterior skin over hip is intact Negative straight leg raise Patient has 5 out of 5 motor strength in tib ant and gastroc sensory is intact to SPN TPN and tibial nerves there is a 2+ dorsalis pedis pulse User Defined 1 Left hip bursa injection: The risks of the procedure was explained to the patient and verbal consent was obtained. The patient was allowed to stand holding onto the exam table. The skin over the hip bursa region was prepped with Betadine solution. Using a 22-gauge spinal needle directing it at 90- toward the hip bursa, the hip bursa was injected with 80 mg Depo-Medrol and 4cc of 0.25% bupivacaine. Needle was withdrawn and Band-Aid was applied. The patient tolerated the procedure well. Tests X-rays performed today weight-bearing AP of the left hip is unremarkable. There is no evidence of joint space narrowing no fracture and no other bony abnormality. Assessment - Overweight 58 year old female with left greater trochanteric bursitis. We will proceed with a steroid injection to help her symptoms and have her start on a course of physical therapy to strengthen her left hip abductor musculature. She will follow up with us as needed. All questions have been answered. Previous Tests Imaging: MRI Scan: An MRI was performed. Counseling/Education - Tobacco non-user - Use of tobacco assessment performed - Lose weight Plan StartCited - Pain in left hip Therapy/Physical Therapy: Hip Instructions: See PT order attached EndCited Notes This dictation was done with voice recognition software and may contain errors and omissions. Transcribed by Deon Esparza Care Team - Ashtyn Albarado APRN
--- OUTSIDE RECORDS SUMMARY | 2024-06-30 21:35 | XMS_ITS | Clinical Summary ---
Author Organization [facility] , [facility] Address [address] [place] [address] Phone Care Team Providers Care Mobile Electronics Installer Name Role Phone Alexa POWELL, Sean Unavailable [phone] Ashtyn Albarado APRN Unavailable [phone] Reason for Visit and Chief Complaint Intake Problems Includes: Problems addressed during this encounter and other active Problems Current Visit Onset Date Resolved Date Provider Catia fajardo Status Joint Pain in the Left Hip 12/04/2023 Henrry Sullivan MD Active Last Documented On 4 2:41PM ; [facility], [facility] Plan of Treatment No Plan of Treatment Recorded Assessments Includes: Assessments from this encounter No Assessments Recorded Medical Equipment - Implanted Devices Includes: Current Devices No Medical Equipment Recorded Medications Includes: Medications discussed during this encounter and other current Medications Current Medications (continue as prescribed) Meloxicam 7.5 MG Oral Tablet 12/08/2023 Provider: Diagnosis: Last Documented On 4 9:16AM By Eleni Murillo ; [facility], [facility] Levothyroxine Sodium 100 MCG Oral Capsule 12/08/2023 Provider: Diagnosis: Last Documented On 4 9:14AM By Eleni Murillo ; [facility] Adult Aspirin Regimen 81 MG Oral Tablet Delayed Releas e 12/08/2023 Provider: Diagnosis: Last Documented On 4 9:15AM By Eleni Murillo ; [facility], [facility] Cholestyramine 4 GM Oral Packet 12/08/2023 Provider: Diagnosis: Last Documented On 4 9:15AM By Eleni Murillo ; [facility], [facility] Naproxen 250 MG Oral Tablet 12/08/2023 Provider: Diagnosis: Last Documented On 4 9:15AM By Eleni Murillo ; [facility] Lansoprazole 30 MG Oral Capsule Delayed Release 2023 Provider: Ahstyn Albarado APRN Diagnosis: Last Documented On 4 9:13AM By Eleni Murillo ; [facility], [facility] Estradiol 0.05 MG/24HR Transdermal Patch Weekly 2023 Provider: Diagnosis: Last Documented On 4 2:42PM By Deon Esparza ; [facility] Lisinopril 10 MG Oral Tablet 11/18/2023 Provider: Ashtyn Albarado APRN Diagnosis: Last Documented On 4 2:42PM By Deon Esparza ; [facility] Levothyroxine Sodium 125 MCG Oral Tablet 11/13/2023 Provider: Ashtyn Albarado APRN Diagnosis: Last Documented On 4 2:42PM By Deon Esparza ; [facility] Medications Administered Includes: Administered Medications from this encounter No Administered Medications Recorded Results Includes: Results discussed during this encounter No Results Recorded For Specified Dates History of Present Illness Includes: History of Present Illness from this encounter No History of Present Illness Recorded Social History No Social History Recorded - Smoking Status Unknown Medical History Includes: Medical History addressed during this encounter No Medical History Recorded Family History Includes: Family History addressed during this encounter No Family History Recorded Review of Systems Includes: Review of Systems from this encounter No Review of Systems Recorded Mental Status Includes: Mental Status from this encounter No Mental Status Recorded Functional Status Includes: Functional Status from this encounter No Functional Status Recorded Physical Exam Includes: Physical Exam from this encounter No Physical Exam Recorded Allergies Includes: Active Allergies Substance Type Reaction Onset Date Resolved Date Statu s Sulfa Antibiotics Allergy 12/08/2023 A ctive Last Documented On 4 9:13AM ; [facility], [facility] Statins Allergy 12/08/2023 Active Last Documented On 4 9:13AM ; [facility], [facility] Encounters Encounter Provider Location Date Check-In Time Check-Out Time Diagnosis Intake Henrry Sullivan MD 12/04/2023 2:41PM 11:59PM Insurance Includes: Active Insurance Policies Plan Name Member ID Group # Subscriber Relationship Effect himanshu Dates 1 - R [id number] Zara Baltazar Clinical Notes Includes: Clinical Notes from this encounter No Clinical Notes Recorded
--- OUTSIDE RECORDS SUMMARY | 2024-06-30 21:35 | XMS_ITS ---
Care Plan - [facility], [facility] Created on: June 30, 2024 Thony Zara H : 1965 Sex: Female Author Organization [facility] , [facility] Address [address] [place] [phone] Phone Care Team Providers Care Claim Specialist Name Role Phone Alexa POWELL, Sean Unavailable [phone]
--- OUTSIDE RECORDS SUMMARY | 2024-06-30 21:35 | XMS_ITS ---
Author Organization [facility] , [facility] Address [address] [place] [address] Phone Care Team Providers Care Diesel Maintenance Technician Name Role Phone Alexa POWELL, Sean Unavailable [phone] Ashtyn Albarado APRN Unavailable [phone] Problems Includes: Active, inactive, and resolved Problems All Visits Onset Date Resolved Date Provider Condition S tatus Joint Pain in the Left Hip 12/04/2023 Henrry Sullivan MD Active Last Documented On 4 2:41PM ; [facility] Plan of Treatment Instructions to patient Lose weight Last Documented On 4 9:19AM ; [facility] Assessments Includes: Assessments for all patient encounters Findings Encounter Date Overweight Physician Specified with Henrry Sullivan MD 12/08/2023 Last Documented On 4 6:37PM ; [facility] Instructions Includes: Instructions for all patient encounters Instructions to patient Lose weight Last Documented On 4 9:19AM ; [facility] Medical Equipment - Implanted Devices Includes: Current and historical Devices No Medical Equipment Recorded Medications Includes: Current and historical Medications Current Medications (continue as prescribed) Meloxicam 7.5 MG Oral Tablet 12/08/2023 Provider: Diagnosis: Last Documented On 4 9:16AM By Eleni Lau [facility], [facility] Levothyroxine Sodium 100 MCG Oral Capsule 12/08/2023 Provider: Diagnosis: Last Documented On 4 9:14AM By Eleni Murillo ; [facility], [facility] Adult Aspirin Regimen 81 MG Oral Tablet Delayed Releas e 12/08/2023 Provider: Diagnosis: Last Documented On 4 9:15AM By Eleni Murillo ; [facility], [facility] Cholestyramine 4 GM Oral Packet 12/08/2023 Provider: Diagnosis: Last Documented On 4 9:15AM By Eleni Murillo ; [facility], [facility] Naproxen 250 MG Oral Tablet 12/08/2023 Provider: Diagnosis: Last Documented On 4 9:15AM By Eleni Murillo ; [facility], [facility] Lansoprazole 30 MG Oral Capsule Delayed Release 2023 Provider: Ashtyn Albarado APRN Diagnosis: Last Documented On 4 9:13AM By Eleni Murillo ; [facility], [facility] Estradiol 0.05 MG/24HR Transdermal Patch Weekly 2023 Provider: Diagnosis: Last Documented On 4 2:42PM By Deon Esparza ; [facility], [facility] Lisinopril 10 MG Oral Tablet 11/18/2023 Provider: Ashtyn Albarado APRN Diagnosis: Last Documented On 4 2:42PM By Deon Esparza ; [facility], [facility] Levothyroxine Sodium 125 MCG Oral Tablet 11/13/2023 Provider: Ashtyn Albarado APRN Diagnosis: Last Documented On 4 2:42PM By Deon Esparza ; [facility], [facility] Past Medications on file Nitrofurantoin Monohyd Macro 100 MG Oral Capsule 10/30/2023 - 12/08/2023 Provider: Diagnosis: Last Documented On 4 9:13AM By Eleni Murillo ; [facility], [facility] Phenazopyridine HCl 200 MG Oral Tablet 10/30/2023 - Provider: Diagnosis: Last Documented On 4 9:13AM By Eleni Murillo ; [facility], [facility] Naproxen Sodium 220 MG Or al Tablet 10/15/2023 - 12/08/2023 Provider: Ashtyn Albarado APRN Diagnosis: Last Documented On 4 9:13AM By Eleni Murillo ; [facility], [facility] Cholestyramine 4 GM Oral Packet 10/14/2023 - Provider: Ashtyn Albarado APRN Diagnosis: Last Documented On 4 9:13AM By Eleni Murillo ; [facility], [facility] Medications Administered Includes: Administered Medications in patient's chart No Administered Medications Recorded Vital Signs Includes: Vital Signs from 07/01/2023 through 06/30/2024 Vital Name 12/08/2023 09:16A Height (in) 64 Weight (lb) 181.6 Body Mass Index 31.2 Body Surface Area 1.9 Note: ct Last Documented: On 12/08/2023 9:25AM ; [facility] Results Includes: Results from 07/01/2023 through 06/30/2024 No Results Recorded For Specified Dates History of Present Illness History of Present Illness not supported for this document type No History of Present Illness Recorded Social History Description Last Updated Alcohol use 12/08/2023 Last Documented On 4 6:37PM ; [facility] Caffeine use 12/08/2023 Last Documented On 4 6:37PM ; [facility] No recent change in diet 12/08/2023 Last Documented On 4 6:37PM ; [facility] Not a current smoker. 12/08/2023 Last Documented On 4 6:37PM ; [facility] Not exercising regularly 12/08/2023 Last Documented On 4 6:37PM ; [facility] Not using drugs 12/08/2023 Last Documented On 4 6:37PM ; [facility] Smoking Status Unknown Procedures and Surgical History Includes: Procedures from 07/01/2023 through 06/30/2024 Procedures Code Diagnosis Performing Provider Service Location Service Date DRAIN/INJECT, JOINT/BURSA (LEFT) Trochanteric bursitis, left hip Henrry Sullivan MD [facility] 12/08/2023 Last Documented On 4 6:47AM ; [facility] Inj, Methylprednisolone acetate, 1 mg [id number] Trochanteric bursitis, left hip Henrry Sullivan MD [facility] 12/08/2023 Last Documented On 4 6:47AM ; [facility] X-RAY EXAM OF PELVIS 1-2 VIEWS (LEFT) [id number] Trochanteric bursitis, left hip Henrry Sullivan MD [facility] 12/08/2023 Last Documented On 4 6:47AM ; [facility] Surgical History Last Updated History of hysterectomy 12/08/2023 Last Documented On 4 6:37PM ; [facility], [facility] Medical History Includes: Medical History in patient's chart Description Last Updated History of arthritis 12/08/2023 Last Documented On 4 6:37PM ; [facility] History of Heartburn / Acid Reflux 12/07 Last Documented On 4 6:37PM ; [facility] History of Hypertension 12/08/2023 Last Documented On 4 6:37PM ; [facility] History of Sleep Apnea 12/08/2023 Last Documented On 4 6:37PM ; [facility] History of Thyroid Disease 12/08/2023 Last Documented On 4 6:37PM ; [facility] Use of CPAP 12/08/2023 Last Documented On 4 6:37PM ; [facility] Family History Includes: Family History in patient's chart Description Last Updated Diabetes mellitus 12/08/2023 Last Documented On 4 6:37PM ; [facility] Family history of cancer 12/08/2023 Last Documented On 4 6:37PM ; [facility] Family history of systemic hypertension 12/08/2023 Last Documented On 4 6:37PM ; [facility] Review of Systems Review of Systems not supported for this document type No Review of Systems Recorded Mental Status Description No anxiety Functional Status No Functional Status Recorded Physical Exam Physical Exam not supported for this document type No Physical Exam Recorded Allergies Includes: Active, inactive, and resolved Allergies Substance Type Reaction Onset Date Resolved Date Statu s Sulfa Antibiotics Allergy 12/08/2023 A ctive Last Documented On 4 9:13AM ; [facility], [facility] Statins Allergy 12/08/2023 Active Last Documented On 4 9:13AM ; [facility] Encounters Includes: Encounters from 07/01/2023 through 06/30/2024 Encounter Provider Location Date Check-In Time Check-Out Time Diagnosis Physician Specified Henrry Sullivan MD [facility] 12/08/19 9:12AM 10:00AM Overweight Intake Henrry Sullivan MD 12/04/19 2:41PM 11:59PM Insurance Includes: Active Insurance Policies Plan Name Member ID Group # Subscriber Relationship Effect himanshu Dates 1 - [facility] [id number] Zara Bhandari Self Clinical Notes Includes: Signed Clinical Notes starting from 03/06/2022 * Progress note Date Encounter Last Documented by 12/08/2023 Physician Specified Last documen yvan on 12/10/2023; 6:37 PM, Henrry Sullivan MD; 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 Current Medication - Adult Aspirin Regimen [...]
--- OUTSIDE RECORDS SUMMARY | 2024-06-30 21:35 | XMS_ITS ---
Care Plan - [facility], [facility] Created on: June 30, 2024 Thony Zara H : 1965 Sex: Female Author Organization [facility] , [facility] Address [address] [place] [phone] Phone Care Team Providers Care Surfacing Technician Name Role Phone Alexa POWELL, Sean Unavailable [phone] Ashtyn Albarado APRN Unavailable [phone]
--- OUTSIDE RECORDS SUMMARY | 2024-06-30 21:35 | XMS_ITS ---
Author Organization [facility] , [facility] Address [address] [place] [phone] Phone Care Team Providers Care Design Painter Name Role Phone Alexa POWELL, Sean Unavailable [phone] Plan of Treatment No Plan of Treatment Recorded Assessments Includes: Assessments for all patient encounters No Assessments Recorded Medical Equipment - Implanted Devices Includes: Current and historical Devices No Medical Equipment Recorded Medications Administered Includes: Administered Medications in patient's chart No Administered Medications Recorded Results Includes: Results from 07/01/2023 through 06/30/2024 No Results Recorded For Specified Dates History of Present Illness History of Present Illness not supported for this document type No History of Present Illness Recorded Social History No Social History Recorded - Smoking Status Unknown Medical History Includes: Medical History in patient's chart No Medical History Recorded Family History Includes: Family History in patient's chart No Family History Recorded Review of Systems Review of Systems not supported for this document type No Review of Systems Recorded Mental Status No Mental Status Recorded Functional Status No Functional Status Recorded Physical Exam Physical Exam not supported for this document type No Physical Exam Recorded Insurance Includes: Active Insurance Policies No Insurance Coverage Recorded Guarantor Relationship Effective Dates Guarantor Ph one Zara Bhandari Self Clinical Notes Includes: Signed Clinical Notes starting from 03/06/2022 No Clinical Notes Recorded
== END 2024-06-27 23:59 | disposition home or self-care (01) ==
LOC: LAB.DROPOF 06-28 14:52
PROVIDERS: PCP Nurse Practitioner Family; Visit Provider Nurse Practitioner Family
DX: R30.0 Dysuria (principal)
CPT/HCPCS: 81001; 87086

== ENCOUNTER 2024-08-29 10:00 | Outpatient (CLI) | payer OTHER, SELFPAY ==
[2024-08-29 11:00] LABS: Chol/HDL Ratio 3.6 (1-3.5); Cholesterol 160 mg/dl (140-200); HDL Cholesterol 44 mg/dl (40-60); Triglycerides 138 mg/dl (30-150); VLDL Cholesterol 28 mg/dL (0-40)
[2024-08-29 11:12] LABS: Direct LDL Cholesterol 84.58 mg/dL (100-129)
[2024-08-29 11:17] LABS: Free T4 (Free Thyroxine) 1.24 ng/dl (0.78-2.19)
[2024-08-29 11:19] LABS: 25-OH Vitamin D, Total 53.3 ng/mL (30-100)
[2024-08-29 11:32] LABS: Thyroid Stimulating Hormone 0.27 uIU/mL (0.465-4.68)
[2024-08-29 11:52] LABS: Hepatitis C Ab Qual. W/ RFX NEGATIVE (Negative)
[2024-08-29 11:54] LABS: Vitamin B12 > 1000 pg/mL (239-931)
== END 2024-08-29 23:59 | disposition home or self-care (01) ==
LOC: LAB 10:01
PROVIDERS: PCP Nurse Practitioner Family; Visit Provider Nurse Practitioner Family
DX: E03.9 Hypothyroidism, unspecified (principal); E53.8 Deficiency of other specified B group vitamins; E78.2 Mixed hyperlipidemia; E55.9 Vitamin D deficiency, unspecified; Z11.59 Encounter for screening for other viral diseases
CPT/HCPCS: 36415; 80061; 82306; 82607; 84439; 84443; 86803

== ENCOUNTER 2024-12-07 09:26 | Outpatient (CLI) | payer OTHER, SELFPAY ==
[2024-12-07 14:51] LABS: Cholesterol 186 mg/dl (140-200); HDL Cholesterol 66 mg/dl (40-60); Triglycerides 148 mg/dl (30-150)
[2024-12-07 15:08] LABS: Free T4 (Free Thyroxine) 1.32 ng/dl (0.78-2.19)
[2024-12-07 15:23] LABS: Thyroid Stimulating Hormone 7.19 uIU/mL (0.465-4.68)
== END 2024-12-07 23:59 ==
LOC: LAB.DROPOF 12-08 10:01
PROVIDERS: PCP Nurse Practitioner Family; Visit Provider Nurse Practitioner Family
DX: E03.9 Hypothyroidism, unspecified (principal); G47.33 Obstructive sleep apnea (adult) (pediatric); I10 Essential (primary) hypertension
CPT/HCPCS: 80061; 84439; 84443

== ENCOUNTER 2025-01-05 09:49 | Outpatient (CLI) | payer OTHER, SELFPAY ==
--- NOTE | 2025-01-05 10:00 | MM_ITS ---
PROCEDURE INFORMATION: Exam: MG Bilateral Screening 3D Mammography Exam date and time: 01/05/2025 9:51 AM Age: 59 years old Clinical indication: Screening exam. TECHNIQUE: Imaging protocol: Bilateral Screening tomosynthesis and 2D mammography including computer-aided detection (CAD) when performed. COMPARISON: 1. MG MM DIG SCREENING MAMM BI W/CAD 01/05/2024 9:37 AM 2. MG MM DIG SCREENING MAMM BI W/CAD 01/01/2023 8:06 AM FINDINGS: MAMMOGRAPHY: Breast composition: There are scattered areas of fibroglandular density. Mass: No suspicious masses. Architectural distortion: None. Calcifications: No suspicious calcifications. Asymmetric density: None. Skin thickening: None. Axillary adenopathy: None. IMPRESSION: No mammographic evidence of malignancy. Annual screening is recommended unless otherwise clinically indicated. ASSESSMENT: BI-RADS Category 1: Negative.
== END 2025-01-05 23:59 | disposition home or self-care (01) ==
LOC: RAD 09:50
PROVIDERS: PCP Nurse Practitioner Family; Visit Provider Nurse Practitioner Family
DX: Z12.31 Encounter for screening mammogram for malignant neoplasm of breast (principal); R92.323 Mammographic fibroglandular density, bilateral breasts
CPT/HCPCS: 77063; 77067

== ENCOUNTER 2025-02-27 11:37 | Outpatient (CLI) | payer OTHER, SELFPAY ==
--- NOTE | 2025-02-27 11:52 | XR_ITS ---
PROCEDURE INFORMATION: Exam: XR Right Ribs with PA Chest Exam date and time: 02/27/2025 11:57 AM Age: 59 years old Clinical indication: Other: Right rib pain, wheezing TECHNIQUE: Imaging protocol: Radiologic exam of the right ribs with PA chest. Views: 3 views Total images: 4 COMPARISON: CR XR CHEST 2V 04/09/2021 1:11 AM FINDINGS: Lungs: No consolidation. Pleural spaces: Apical pleural thickening noted bilaterally. Heart/Mediastinum: No cardiomegaly. Diaphragm: There is nonspecific elevation of the right hemidiaphragm. Bones/joints: No evidence of acute fracture. Old fracture along the lateral aspect of the lateral aspect of the 10th rib. The thoracic spine demonstrates mild degenerative changes at multiple levels. IMPRESSION: 1. No evidence of acute fracture. 2. Old fracture along the lateral aspect of the lateral aspect of the 10th rib.
[2025-02-27 12:26] LABS: Hematocrit 43.9 % (37.0-47.0); Hemoglobin 14.4 g/dL (12.2-16.2); Immature Granulocytes % 0.3 %; Mean Corpuscular HGB Conc 32.8 g/dL (31.8-35.4); Mean Corpuscular Hemoglobin 30.1 pg (27.0-31.2); Mean Corpuscular Volume 91.6 fl (81-99); Nucleated Red Blood Cells % 0 %; Platelet Count 267 K/mm3 (142-424); Red Blood Count 4.79 M/mm3 (4.20-5.40); Red Cell Distribution Width-SD 41.6 fL; White Blood Count 7.9 K/mm3 (4.8-10.8)
[2025-02-27 12:35] LABS: Hemoglobin A1C 6.3 % (4.0-6.0)
[2025-02-27 13:08] LABS: Alanine Aminotransferase 41 U/L (12-78); Albumin Level 4.4 g/dl (3.5-5.0); Albumin/Globulin Ratio 1.6 (1.1-1.8); Alkaline Phosphatase 81 U/L (38-126); Amylase 52 U/L (30-110); Anion Gap 15.6 mEq/L (5-15); Aspartate Amino Transferase 31 U/L (14-36); Bilirubin,Total 0.5 mg/dl (0.2-1.3); Blood Urea Nitrogen 16 mg/dl (7-17); Calcium 9.5 mg/dl (8.4-10.2); Carbon Dioxide 28 mmol/L (22.0-30.0); Chloride 103 mmol/L (98-107); Creatinine,Serum 1.00 mg/dl (0.52-1.04); Estimated Glomerular Filt Rate 56 ml/min (>60); GFR (African American) 68 ML/MIN (>60); Globulin 2.7 g/dL (1.3-3.2); Glucose 109 mg/dl (74-100); Lipase 120 U/L (23-300); Potassium 4.6 mmoL/L (3.5-5.1); Sodium 142 mmol/L (136-145); Total Protein,Serum 7.1 g/dl (6.3-8.2)
[2025-02-27 14:03] LABS: Coronavirus 19, PCR Not Detected (NotDetected); Influenza A, PCR Not Detected (NotDetected); Influenza B, PCR Not Detected (NotDetected)
== END 2025-02-27 23:59 | disposition home or self-care (01) ==
LOC: LAB 11:37
PROVIDERS: PCP Nurse Practitioner Family; Visit Provider Nurse Practitioner Family
DX: R10.9 Unspecified abdominal pain (principal); Z13.1 Encounter for screening for diabetes mellitus; R05.1 Acute cough; R07.89 Other chest pain; R06.2 Wheezing
CPT/HCPCS: 36415; 71101; 80053; 82150; 83036; 83690; 85025; 87631

== ENCOUNTER 2025-03-02 10:41 | Outpatient (CLI) | payer OTHER, SELFPAY ==
--- NOTE | 2025-03-02 11:00 | US_ITS ---
FINAL REPORT CLINICAL HISTORY: right upper abd pain FINDINGS: Sonographic images of the right upper quadrant were obtained. The pancreas is partially obscured. There is fatty infiltration of the liver. The gallbladder appears normal without evidence of gallstones.There is no evidence of biliary ductal dilatation.The common duct measures 4mm. Limited images of the right kidney are unremarkable. IMPRESSION: Fatty liver. Reviewed, Interpreted and Dictated by Ravinder Poon MD Transcribed by More Villalpando Authenticated and [facility]
[2025-03-02 12:56] LABS: Free T4 (Free Thyroxine) 1.06 ng/dl (0.78-2.19)
[2025-03-02 13:13] LABS: Thyroid Stimulating Hormone 6.41 uIU/mL (0.465-4.68)
== END 2025-03-02 23:59 | disposition home or self-care (01) ==
PROVIDERS: PCP Nurse Practitioner Family; Visit Provider Nurse Practitioner Family
DX: K76.0 Fatty (change of) liver, not elsewhere classified (principal); E03.9 Hypothyroidism, unspecified; G47.33 Obstructive sleep apnea (adult) (pediatric)
CPT/HCPCS: 36415; 76705; 84439; 84443